=== PATIENT | male | born 1940 | race Caucasian/White ===

== ENCOUNTER 2019-04-15 09:40 | Day surgery (SDC) | payer MEDICARE, OTHER ==
[2019-04-15] MEDS ORDERED: Dextrose 5%-Lactated Ringers 1,000 ML IV SCH (10:30)
[2019-04-15] MEDS ORDERED: ceFAZolin 2 GM in Premix Bag 1 BAG IV ONE (11:00)
[2019-04-15] MEDS ORDERED: Bupivacaine 0.5% 50 ML MDV ONE (11:12)
[2019-04-15] MEDS ORDERED: Lidocaine 1% with EPINEPHrine 1:100,000 50 ML MDV ONE (11:12)
[2019-04-15] MEDS ORDERED: fentaNYL 100 MCG/2 ML SDV ONE (12:14)
[2019-04-15] MEDS ORDERED: Propofol 200 MG/20 ML SDV ONE (12:15)
--- NOTE | 2019-04-15 13:38 | PCM.CONS ---
H&P History of Present Illness - General Date of Service: 04/15/19 Source of Information: Patient, Family, Old Records, Provider, RN Notes Reviewed History Limitations: Reports: No Limitations - History of Present Illness Initial Comments - Free Text/Narative: Mr. Lombardi is a 79-year-old gentleman who I been asked to see by Dr. Claire, for medical clearance prior to planned umbilical hernia repair with IV sedation. Mr. Lombardi has a known history of coronary artery disease and is status post angioplasty with stent placement done 6-8 years ago. He did have an echocardiogram performed about 16 months ago, which showed normal left ventricular function and mild aortic stenosis. He denies recent symptoms of chest pain or pressure, or shortness of breath out of the ordinary. He thinks that he is able to walk 2 blocks without having to stop because of chest pain or shortness of breath. If he did have to stop it would typically because of low back and hip pain. He also reports that he would be able to walk up 2 flights of stairs without having to stop because of shortness of breath or chest pain. He is in no recent fevers chills or sweats. Denies nausea vomiting and abdominal pain. He has had previous surgery with no adverse reaction to IV sedation or general anesthetic. There is no family history of adverse reaction to anesthesia. He denies any history of deep vein thrombosis, pulmonary embolism , or bleeding abnormalities. 3 Pain Score (Numeric/FACES): 3 - Related Data Allergies/Adverse Reactions: Allergies Allergy/AdvReac Type Severity Reaction Status Date / Time No Known Allergies Allergy Verified 02/07/14 20:28 Home Medications: Home Meds Furosemide 40 mg PO DAILY 02/07/14 [History] Gabapentin 300 mg PO TID 02/07/14 [History] Insulin Aspart [NovoLOG] 2 units SUBCUT TID PRN 02/07/14 [History] Potassium Chloride [Klor-Con M20] 20 meq PO DAILY 02/07/14 [History] atorvaSTATin Calcium [Atorvastatin Calcium] 40 mg PO DAILY 02/07/14 [History] metFORMIN [Glucophage] 500 mg PO BID 02/07/14 [History] Acetaminophen [Tylenol Extra Strength] 1,000 mg PO DAILY 05/26/14 [History] Amitriptyline [Elavil] 25 mg PO BEDTIME 05/26/14 [History] Aspirin [Adult Low Dose Aspirin EC] 81 mg PO DAILY 05/26/14 [History] Carvedilol [Coreg] 0.5 tab PO BID 05/26/14 [History] Ergocalciferol (Vitamin D2) [Vitamin D2] 1 cap PO ASDIRECTED 05/26/14 [History] Losartan [Cozaar] 50 mg PO BID 05/26/14 [History] Zinc 1 tab PO DAILY 05/26/14 [History] Ascorbic Acid [Vitamin C] 500 mg PO DAILY 05/28/14 [History] Cholecalciferol (Vitamin D3) [Vitamin D3] 1,000 units PO BID 04/13/19 [History] Cholecalciferol (Vitamin D3) [Vitamin D3] 50,000 units PO Q30D 04/13/19 [History ] Cyanocobalamin (Vitamin B-12) [B-12] 1,000 mcg PO BID 04/13/19 [History] Ibuprofen 200 mg PO Q6H PRN 04/13/19 [History] Insulin Degludec [Tresiba Flextouch U-200] 64 units SUBCUT BEDTIME 04/13/19 [ History] Liraglutide [Victoza] 1.8 mg SUBCUT DAILY 04/13/19 [History] Multivitamin [Multiple Vitamins] 1 tab PO DAILY 04/13/19 [History] Omeprazole 40 mg PO DAILY 04/13/19 [History] Potassium Chloride 20 meq PO DAILY 04/13/19 [History] Tamsulosin [Flomax] 0.4 mg PO DAILY 04/13/19 [History] Past Medical History HEENT History: Reports: Cataract, Impaired Vision Cardiovascular History: Reports: Arrhythmia, Blood Clots/VTE/DVT, High Cholesterol, Hypertension, SOB on Exertion, Stents Respiratory History: Reports: Other (See Below) Other Respiratory History: ANDREWS LUNG Gastrointestinal History: Reports: GERD Genitourinary History: Reports: Urinary Incontinence Musculoskeletal History: Reports: Arthritis, Back Pain, Chronic Neurological History: Reports: Neuropathy, Diabetic, Vertigo Psychiatric History: Reports: Depression Endocrine/Metabolic History: Reports: Diabetes, Type II, IDDM Oncologic (Cancer) History: Reports: Malignant Melanoma Dermatologic History: Reports: Melanoma, Other (See Below) Other Dermatologic History: DRY SKIN - Infectious Disease History Infectious Disease History: Reports: Chicken Pox, Measles, Mumps - Past Surgical History HEENT Surgical History: Reports: Adenoidectomy, Cataract Surgery, Eye Surgery, Tonsillectomy Cardiovascular Surgical History: Reports: Coronary Artery Stent Respiratory Surgical History: Reports: None GI Surgical History: Reports: Cholecystectomy, Colonoscopy Male Surgical History: Reports: TURP-Transurethral Resection of Prostate, Other (See Below) Neurological Surgical History: Reports: Discectomy, Laminectomy Dermatological Surgical History: Reports: Skin Biopsy Social & Family History - Family History Family Medical History: Noncontributory - Tobacco Use Smoking Status *Q: Never Smoker Second Hand Smoke Exposure: No - Caffeine Use Caffeine Use: Reports: Coffee - Recreational Drug Use Recreational Drug Use: No H&P Review of Systems - Review of Systems: Review Of Systems: See Below General: Reports: No Symptoms HEENT: Reports: No Symptoms Pulmonary: Reports: No Symptoms Cardiovascular: Reports: No Symptoms Gastrointestinal: Reports: Other (umbilical hernia). Denies: Abdominal Pain, Black Stool, Bloody Stool, Constipation, Diarrhea, Decreased Appetite, Difficulty Swallowing, Distension, Nausea, Vomiting Genitourinary: Reports: No Symptoms Musculoskeletal: Reports: Neck Pain, Back Pain, Joint Pain Skin: Reports: No Symptoms Psychiatric: Reports: No Symptoms Neurological: Reports: No Symptoms Hematologic/Lymphatic: Reports: No Symptoms Immunologic: Reports: No Symptoms Exam - Exam Exam: See Below - Vital Signs Vital Signs: Last Vital Signs Temp 95.5 F 04/15/19 11:31 Pulse 42 L 04/15/19 11:31 Resp 16 04/15/19 11:31 BP 142/61 H 04/15/19 11:31 Pulse Ox 97 04/15/19 11:31 Weight: 229 lb - Exam General: Alert, Oriented, Cooperative Neck: Supple, Trachea Midline, +2 Carotid Pulse wo Bruit Lungs: Clear to Auscultation, Normal Respiratory Effort Cardiovascular: Regular Rate, Regular Rhythm, Normal S1, Normal S2, Systolic Murmur. No: Bradycardia, Tachycardia GI/Abdominal Exam: Soft, Non-Tender, No Organomegaly, No Distention, Hernia Back Exam: Normal Inspection, Full Range of Motion Extremities: Non-Tender, No Pedal Edema Skin: Warm, Dry, Intact Consult PN Assessment/Plan Procedures: Procedures BONE IMAGING (3D) (01/25/14) CARDIOVASCULAR STRESS TEST (05/28/14) COMPLETE CBC W/AUTO DIFF WBC (02/07/14) CT LUMBAR SPINE W/O DYE (01/29/14) EMERGENCY DEPT VISIT (02/07/14) EXTREMITY STUDY (01/25/14) HT MUSCLE IMAGE SPECT MULT (05/28/14) METABOLIC PANEL TOTAL CA (02/07/14) PT EVALUATION (09/30/14) ROUTINE VENIPUNCTURE (02/07/14) THER/PROPH/DIAG IV INF INIT (02/08/14) THERAPEUTIC EXERCISES (09/30/14) TTE W/DOPPLER COMPLETE (12/11/17) US EXAM ABDO BACK WALL COMP (01/29/14) Problem List Initiated/Reviewed/Updated: Yes Plan: ASSESSMENT AND RECOMMENDATIONS UMBILICAL HERNIA REPAIR-cleared for surgery with IV sedation and local anesthesia. He has adequate exercise tolerance and denies any symptoms of significant shortness of breath or chest pain. HISTORY OF CORONARY ARTERY DISEASE-currently asymptomatic status post angioplasty with stent placement several years ago MILD AORTIC STENOSIS-currently asymptomatic TYPE 2 DIABETES [id number] with current management Requesting Provider: MARSHALL Date Consult Requested: 04/15/19 Reason for Consult: preoperative medical clearance Patient History Reviewed: Yes Admission H&P Reviewed: Yes Notified Requestor: Yes
[2019-04-15] MEDS ORDERED: Acetaminophen/HYDROcodone 325-5 MG Tab PO ONE (15:42)
--- NOTE | 2019-04-16 09:43 | OR ---
DATE OF PROCEDURE: 04/15/2019 POSTOPERATIVE DIAGNOSIS: Umbilical hernia, reducible. POSTOPERATIVE DIAGNOSIS: Umbilical hernia, reducible. PROCEDURE: Repair umbilical hernia with a 6.4 cm in diameter Ventralex mesh patch with straps. SURGEON: Daniel Nixon MD ANESTHESIA: IV anesthesia with monitored anesthesia care. INDICATION: This 79-year-old white male is referred for repair of an umbilical hernia. This is reducible. I counseled him for this with mesh including risks and alternatives, and he gave his informed consent to proceed. DESCRIPTION OF PROCEDURE: After adequate IV anesthesia was obtained, the patient's abdomen was prepped and draped in the usual sterile fashion. Time-out was held. Lidocaine 1% with epinephrine in a 50:50 mix with 0.5% Marcaine was infiltrated about the umbilicus. An infraumbilical semicircular incision was made. The underlying hernia sac was divided from the overlying umbilical skin. This sac was dissected free, excised, and sent to the laboratory. The omentum which was in the sac was reintroduced back into the abdominal cavity. The defect was small enough to use the 6.4 cm in diameter Ventralex mesh patch with straps, which was obtained. The patch was placed underneath the fascia. The straps were pulled up bringing the mesh nicely against the posterior aspect of the anterior abdominal wall. The straps were cut to appropriate length and anchored to the anterior side of the fascia with interrupted horizontal mattress stitches of 2-0 Vicryl. A [id number] stitch of 2-0 Vicryl was used to close the fascia over the mesh. The umbilicus was attached to the underlying fascia with an interrupted stitch of 2-0 Vicryl. Vicryl 4-0 using a subcuticular stitch was placed to approximate the skin. Dermabond was applied. The patient tolerated the procedure well and brought to the recovery room in good condition. Daniel Claire MD /[id number] [email or web address]
== END 2019-04-15 16:40 | disposition home or self-care (01) ==
LOC: JP.SDS 09:40
PROVIDERS: ATTEND Surgery
DX: K42.9 Umbilical hernia without obstruction or gangrene (principal); I12.9 Hypertensive chronic kidney disease with stage 1 through stage 4 chronic kidney disease, or unspecified chronic kidney disease; E11.22 Type 2 diabetes mellitus with diabetic chronic kidney disease; N18.2 Chronic kidney disease, stage 2 (mild); I25.10 Atherosclerotic heart disease of native coronary artery without angina pectoris; I35.0 Nonrheumatic aortic (valve) stenosis; E11.51 Type 2 diabetes mellitus with diabetic peripheral angiopathy without gangrene; E78.00 Pure hypercholesterolemia, unspecified; K21.9 Gastro-esophageal reflux disease without esophagitis; F32.9 Major depressive disorder, single episode, unspecified; R32 Unspecified urinary incontinence; Z90.79 Acquired absence of other genital organ(s); Z79.4 Long term (current) use of insulin; Z79.82 Long term (current) use of aspirin; Z79.899 Other long term (current) drug therapy
CPT/HCPCS: 49585; 82962; 88302; A9270; C1781; J0690; J2704; J3010; J3490; J7042

== ENCOUNTER 2020-02-04 23:02 | Emergency (ER) | payer MEDICARE, OTHER ==
[2020-02-04] MEDS ORDERED: Heparin Sodium 5,000 Units/ML Vial IVPUSH ONE (23:51)
--- NOTE | 2020-02-04 23:54 | EDM.PDOC ---
ED HPI GENERAL MEDICAL PROBLEM - General Chief Complaint: Chest Pain Stated Complaint: [facility] Time Seen by Provider: 02/04/20 23:54 Source of Information: Reports: Patient History Limitations: Reports: Intoxication - History of Present Illness INITIAL COMMENTS - FREE TEXT/NARRATIVE: pt arrived with a history of chest pain starting about 5 thirty. He had been at [facility] and Dr Loya had done surgery on his wrist. He had a regional block and some sedation for the procedure. He has a history of stents. On the way home he developed the chest pain and this did continue through the pm. Onset: Today, Sudden Duration: Hour(s): Location: Reports: Chest, Other (pt was given 3 sprays of nitro in the ambulance and asa and he is doing much better. His pain has resolved. He states when he had the pain he was very sweaty. ) Associated Symptoms: Reports: Diaphoresis, Shortness of Breath, Weakness Treatments COLLECTIONS REPRESENTATIVE: Reports: See EMS Report - Related Data Allergies Allergy/AdvReac Type Severity Reaction Status Date / Time No Known Allergies Allergy Verified 02/04/20 23:31 Home Meds: Home Meds Gabapentin 600 mg PO TID 02/07/14 [History] Insulin Aspart [NovoLOG] 3 units SUBCUT TID PRN 02/07/14 [History] Potassium Chloride [Klor-Con M20] 20 meq PO DAILY 02/07/14 [History] atorvaSTATin Calcium [Atorvastatin Calcium] 40 mg PO DAILY 02/07/14 [History] metFORMIN [Glucophage] 500 mg PO BID 02/07/14 [History] Aspirin [Adult Low Dose Aspirin EC] 81 mg PO DAILY 05/26/14 [History] Ergocalciferol (Vitamin D2) [Vitamin D2] 1 cap PO ASDIRECTED 05/26/14 [History] Losartan [Cozaar] 50 mg PO BID 05/26/14 [History] Cholecalciferol (Vitamin D3) [Vitamin D3] 1,000 units PO BID 04/13/19 [History] Cyanocobalamin (Vitamin B-12) [B-12] 1,000 mcg PO BID 04/13/19 [History] Ibuprofen 200 mg PO Q6H PRN 04/13/19 [History] Insulin Degludec [Tresiba Flextouch U-200] 64 units SUBCUT BEDTIME 04/13/19 [ History] Liraglutide [Victoza] 1.8 mg SUBCUT DAILY 04/13/19 [History] Multivitamin [Multiple Vitamins] 1 tab PO DAILY 04/13/19 [History] Omeprazole 40 mg PO DAILY 04/13/19 [History] Tamsulosin [Flomax] 0.4 mg PO DAILY 04/13/19 [History] Citalopram Hydrobromide [Celexa] 40 mg PO DAILY 07/25/19 [History] Furosemide 80 mg PO DAILY PRN 07/25/19 [History] Diclofenac Sodium [Voltaren] 2 g TOP QID 10/30/19 [History] Past Medical History HEENT History: Reports: Cataract, Impaired Vision Cardiovascular History: Reports: Arrhythmia, Blood Clots/VTE/DVT, Heart Murmur, High Cholesterol, Hypertension, SOB on Exertion, Stents Respiratory History: Reports: Other (See Below) Other Respiratory History: ANDREWS LUNG Gastrointestinal History: Reports: GERD Genitourinary History: Reports: Urinary Incontinence Musculoskeletal History: Reports: Arthritis, Back Pain, Chronic Neurological History: Reports: Neuropathy, Diabetic, Vertigo Psychiatric History: Reports: Depression Endocrine/Metabolic History: Reports: Diabetes, Type II, IDDM Oncologic (Cancer) History: Reports: Malignant Melanoma, Prostate Dermatologic History: Reports: Melanoma, Other (See Below) Other Dermatologic History: DRY SKIN - Infectious Disease History Infectious Disease History: Reports: Chicken Pox, Measles, Mumps - Past Surgical History HEENT Surgical History: Reports: Adenoidectomy, Cataract Surgery, Eye Surgery, Tonsillectomy Cardiovascular Surgical History: Reports: Coronary Artery Stent GI Surgical History: Reports: Cholecystectomy, Colonoscopy, Hernia, Abdominal Male Surgical History: Reports: TURP-Transurethral Resection of Prostate, Other (See Below) Other Male Surgeries/Procedures: bladder repair Neurological Surgical History: Reports: Discectomy, Laminectomy Musculoskeletal Surgical History: Reports: Arthroscopic Knee, Other (See Below) Other Musculoskeletal Surgeries/Procedures:: partial knee replacements, neck surg twice, back surg 3 times Dermatological Surgical History: Reports: Skin Biopsy Social & Family History - Family History Family Medical History: Noncontributory - Tobacco Use Smoking Status *Q: Never Smoker - Caffeine Use Caffeine Use: Reports: Coffee Caffeine Use Comment: several cups to a pot a day - Recreational Drug Use Recreational Drug Use: No ED ROS GENERAL - Review of Systems Review Of Systems: See Below Constitutional: Reports: Diaphoresis HEENT: Reports: No Symptoms Respiratory: Reports: Shortness of Breath Cardiovascular: Reports: Chest Pain Endocrine: Reports: No Symptoms GI/Abdominal: Reports: No Symptoms : Reports: No Symptoms Musculoskeletal: Reports: No Symptoms Skin: Reports: No Symptoms ED EXAM, GENERAL - Physical Exam Exam: See Below Free Text/Narrative:: pt arrived after having chest pain since about 5 thirty this pm. He was brought by ambulance and he was given asa and nitro in the ambulance. The 3 sprays of nitro did give relief of the chest pain. He still is somewhat sweaty at this time. His o2 sats are in the low 90s. Exam Limited By: No Limitations General Appearance: Alert, Anxious, Mild Distress Ears: Normal TMs Nose: Normal Inspection Throat/Mouth: Normal Inspection Head: Atraumatic Neck: Normal Inspection Respiratory/Chest: No Respiratory Distress, Other (o2 sats are on the lower side. ) Cardiovascular: Regular Rate, Rhythm, Other (pt is having frquent pvcs. ) GI/Abdominal: Soft, Non-Tender (Male) Exam: Deferred Rectal (Males) Exam: Deferred Back Exam: Normal Inspection Extremities: Other (pt has a dressing on the rt arm. ) Neurological: Alert, Oriented, Normal Cognition Course - Vital Signs Last Recorded V/S: Last Vital Signs Temp Pulse 89 02/04/20 23:31 Resp 18 02/04/20 23:31 BP 142/73 H 02/04/20 23:31 Pulse Ox 92 L 02/04/20 23:31 - Orders/Labs/Meds Labs: Laboratory Tests 02/04/20 02/04/20 02/04/20 Range/Units 23:05 23:05 23:05 WBC (4.5-11.0) K/uL RBC (4.30-5.90) M/uL Hgb (12.0-15.0) g/dL Hct (40.0-54.0) % MCV (80-98) fL MCH (27-31) pg MCHC (32-36) % Plt Count (150-400) K/uL Neut % (Auto) (36-66) % Lymph % (Auto) (24-44) % [place] % (Auto) (2-6) % Eos % (Auto) (2-4) % Baso % (Auto) (0-1) % APTT (27.0-36.0) sec D-Dimer, Quantitative 354 (0.0-400.0) ng/mL Sodium 136 L (140-148) mmol/L Potassium 5.3 H (3.6-5.2) mmol/L Chloride 102 (100-108) mmol/L Carbon Dioxide 26 (21-32) mmol/L Anion Gap 13.3 (5.0-14.0) mmol/L BUN 33 H (7-18) mg/dL Creatinine 1.7 H (0.8-1.3) mg/dL Est Cr Clr Drug Dosing TNP Estimated GFR (MDRD) 39 L (>60) Glucose 441 H* (74-106) mg/dL Calcium 8.2 L (8.5-10.1) mg/dL Total Bilirubin 0.4 (0.2-1.0) mg/dL AST 19 (15-37) U/L ALT 22 (12-78) U/L Alkaline Phosphatase 81 (46-116) U/L Troponin I 1.037 H* (0.000-0.056) ng/mL Total Protein 6.4 (6.4-8.2) g/dL Albumin 3.0 L (3.4-5.0) g/dL Globulin 3.4 (2.3-3.5) g/dL Albumin/Globulin Ratio 0.9 L (1.2-2.2) 02/04/20 02/04/20 Range/Units 23:08 23:10 WBC 12.5 H (4.5-11.0) K/uL RBC 4.17 L (4.30-5.90) M/uL Hgb 12.3 (12.0-15.0) g/dL Hct 37.9 L (40.0-54.0) % MCV 91 (80-98) fL MCH 30 (27-31) pg MCHC 33 (32-36) % Plt Count 190 (150-400) K/uL Neut % (Auto) 93 H (36-66) % Lymph % (Auto) 5 L (24-44) % [place] % (Auto) 2 (2-6) % Eos % (Auto) 0 L (2-4) % Baso % (Auto) 0 (0-1) % APTT 25.6 L (27.0-36.0) sec D-Dimer, Quantitative (0.0-400.0) ng/mL Sodium (140-148) mmol/L Potassium (3.6-5.2) mmol/L Chloride (100-108) mmol/L Carbon Dioxide (21-32) mmol/L Anion Gap (5.0-14.0) mmol/L BUN (7-18) mg/dL Creatinine (0.8-1.3) mg/dL Est Cr Clr Drug Dosing Estimated GFR (MDRD) (>60) Glucose (74-106) mg/dL Calcium (8.5-10.1) mg/dL Total Bilirubin (0.2-1.0) mg/dL AST (15-37) U/L ALT (12-78) U/L Alkaline Phosphatase (46-116) U/L Troponin I (0.000-0.056) ng/mL Total Protein (6.4-8.2) g/dL Albumin (3.4-5.0) g/dL Globulin (2.3-3.5) g/dL Albumin/Globulin Ratio (1.2-2.2) Meds: Medications Discontinued Medications Generic Name Dose Route Start Last Admin Trade Name Freq PRN Reason Stop Dose Admin Heparin Sodium (Porcine) 4,000 units 02/04/20 23:51 02/04/20 23:58 Heparin Sodium IVPUSH 02/04/20 23:52 4,000 units ONETIME ONE Administration Insulin Human Regular 5 unit 02/05/20 00:11 02/05/20 00:17 Humulin R SUBCUT 02/05/20 00:12 5 units ONETIME ONE Administration - Re-Assessments/Exams Free Text/Narrative Re-Assessment/Exam: 02/05/20 00:02 pt arrived with very little discomfort. He had lower o2 sats. He had no acute ekg changes. He has frequent pvcs. His trop is elevated to 1.037. Departure - Departure Time of Disposition: 23:47 Disposition: DC/Tfer to Acute Hospital 02 Reason for Transfer *Q: Primary PCI Indicated Condition: Fair Clinical Impression: Non Q wave myocardial infarction, Frequent PVCs Referrals: Anthony Coon MD [Primary Care Provider] - Forms: ED Department Discharge Care Plan Goals: transfer to [facility]. Sepsis Event Note - Evaluation Sepsis Screening Result: No Definite Risk - Focused Exam Date Exam was Performed: 02/08/20 Time Exam was Performed: 07:12
[2020-02-05] MEDS ORDERED: Insulin Regular, Human 100 Units/ML 3 ML Vial SUBCUT ONE (00:11)
--- NOTE | 2020-02-05 00:28 | CRLCR ---
INDICATION: Shortness of breath TECHNIQUE: Chest radiograph 1 view COMPARISON: 09/21/10 FINDINGS: Mediastinum: The mediastinum is normal in appearance. The heart silhouette is normal in size and morphology. Lung: Both lungs are unremarkable in appearance. No sign of pleural effusion seen. No pneumothorax is identified. Bone and Soft tissue: Unremarkable for age. IMPRESSION: 1. No acute cardiopulmonary disease is seen. Dictated by: Dandre Rodriguez MD @ 02/05/2020 00:27:34 (Electronically Signed)
== END 2020-02-05 00:22 ==
LOC: JP.ED 23:02
DX: I21.4 Non-ST elevation (NSTEMI) myocardial infarction (principal); I49.3 Ventricular premature depolarization; I10 Essential (primary) hypertension; E11.40 Type 2 diabetes mellitus with diabetic neuropathy, unspecified; E78.00 Pure hypercholesterolemia, unspecified; Z86.718 Personal history of other venous thrombosis and embolism; K21.9 Gastro-esophageal reflux disease without esophagitis; M19.90 Unspecified osteoarthritis, unspecified site; F32.9 Major depressive disorder, single episode, unspecified; Z79.4 Long term (current) use of insulin; Z79.82 Long term (current) use of aspirin; Z79.899 Other long term (current) drug therapy
CPT/HCPCS: 36415; 71045; 80053; 84484; 85025; 85379; 85730; 93005; 96374; 99285; J1644; J1815

== ENCOUNTER 2020-03-31 07:33 | Day surgery (SDC) | payer MEDICARE, OTHER ==
[~2020-03-31 07:33] MED LIST: Propofol 200 MG/20 ML SDV ONE; fentaNYL 100 MCG/2 ML SDV ONE
[2020-03-31] MEDS ORDERED: Dextrose 5%-Lactated Ringers 1,000 ML IV SCH (08:00)
--- NOTE | 2020-04-10 09:04 | OR ---
DATE OF PROCEDURE: 03/31/2020 SURGEON: Farooq Kothari MD PREOPERATIVE DIAGNOSES: History of epigastric discomfort and melena. POSTOPERATIVE DIAGNOSIS: Minimal gastritis in gastric antrum with no current erosions, ulcers, or other likely bleeding sources identified. OPERATIVE PROCEDURE: Esophagogastroduodenoscopy with antral biopsies for CLOtest. ANESTHESIA: IV sedation. INDICATIONS FOR PROCEDURE: This is a 80-year-old male presenting with some epigastric discomfort as well as history of some black stools. Plan is to proceed with upper GI endoscopy with biopsies as indicated. Potential risks including bleeding and perforation were discussed, and the patient wishes to proceed. DETAILS OF PROCEDURE: The patient was taken to the operative room and placed in a left lateral decubitus position. IV sedation was administered, after which the upper GI endoscope was passed orally through the length of the esophagus into the stomach with retroflexion view of the fundus, thereafter through the pyloric channel into the proximal duodenum. FINDINGS: Included normal hypopharynx, larynx, upper esophageal sphincter, and esophageal body. At the EG junction, there was a small hiatal hernia, but no significant inflammation or stricturing or other signs of pathology at that level. In the stomach, there was some patchy redness in the gastric antrum. There were no erosions or ulcers present there. As we passed through the pyloric channel to the level of 3rd and 4th portions of the duodenum, likewise there were no ulcers or erosions or other likely bleeding sites. At that point, biopsies were obtained from the antrum and sent for CLOtest for H. pylori. Minimal bleeding from the biopsy sites was seen, and procedure then concluded. At this point, we will have the patient continue with present medical management of proton pump inhibitors. By history, the patient had been taking some ibuprofen previously. He will be instructed to avoid ibuprofen, but use Tylenol as needed for other pains. Follow up with Dr. Coon at [facility] on 04/21/2020. Farooq Kothari MD /[id number]
== END 2020-03-31 10:43 | disposition home or self-care (01) ==
LOC: JP.SDS 07:33
PROVIDERS: ATTEND Surgery
DX: K29.70 Gastritis, unspecified, without bleeding (principal); E11.9 Type 2 diabetes mellitus without complications
CPT/HCPCS: 43239; 87081; J2704; J3010; J7121

== ENCOUNTER 2020-08-19 11:19 | Emergency (ER) | payer MEDICARE, OTHER ==
[2020-08-19] MEDS ORDERED: Aspirin 81 MG Tab.Chew PO ONE (11:46)
--- NOTE | 2020-08-19 13:17 | EDM.PDOC ---
ED HPI GENERAL MEDICAL PROBLEM - General Chief Complaint: Chest Pain Stated Complaint: CHEST PAINS AFTER REHAB Time Seen by Provider: 08/19/20 11:45 Source of Information: Reports: Patient, Family History Limitations: Reports: No Limitations - History of Present Illness INITIAL COMMENTS - FREE TEXT/NARRATIVE: pt arrived with a history of chest pain while in cardiac rehab this am. For this reason he was refered to ER. Onset: Today, Sudden Duration: Hour(s): Location: Reports: Chest Associated Symptoms: Reports: Chest Pain, Shortness of Breath, Other ( Particularly when he was having the pain. ) - Related Data Allergies Allergy/AdvReac Type Severity Reaction Status Date / Time No Known Allergies Allergy Verified 03/31/20 08:02 Home Meds: Home Meds Gabapentin 300 - 600 mg PO TID 02/07/14 [History] Insulin Aspart [NovoLOG] 6 units SUBCUT TID PRN 02/07/14 [History] Potassium Chloride [Klor-Con M20] 20 meq PO DAILY 02/07/14 [History] atorvaSTATin Calcium [Atorvastatin Calcium] 40 mg PO DAILY 02/07/14 [History] metFORMIN [Glucophage] 500 mg PO BID 02/07/14 [History] Aspirin [Adult Low Dose Aspirin EC] 81 mg PO DAILY 05/26/14 [History] Ergocalciferol (Vitamin D2) [Vitamin D2] 1 cap PO ASDIRECTED 05/26/14 [History] Losartan [Cozaar] 50 mg PO BID 05/26/14 [History] Cholecalciferol (Vitamin D3) [Vitamin D3] 1,000 units PO BID 04/13/19 [History] Cyanocobalamin (Vitamin B-12) [B-12] 1,000 mcg PO BID 04/13/19 [History] Ibuprofen 200 mg PO Q6H PRN 04/13/19 [History] Insulin Degludec [Tresiba Flextouch U-200] 50 units SUBCUT BEDTIME 04/13/19 [History] Liraglutide [Victoza] 1.8 mg SUBCUT DAILY 04/13/19 [History] Multivitamin [Multiple Vitamins] 1 tab PO DAILY 04/13/19 [History] Omeprazole 40 mg PO DAILY 04/13/19 [History] Tamsulosin [Flomax] 0.4 mg PO DAILY 04/13/19 [History] Citalopram Hydrobromide [Celexa] 40 mg PO DAILY 07/25/19 [History] Furosemide 80 mg PO DAILY PRN 07/25/19 [History] Diclofenac Sodium [Voltaren] 2 g TOP QID 10/30/19 [History] Nitroglycerin [Nitrostat] 0.4 mg SL ASDIRECTED PRN 03/28/20 [History] Past Medical History HEENT History: Reports: Cataract, Impaired Vision Cardiovascular History: Reports: Arrhythmia, Blood Clots/VTE/DVT, Heart Murmur, High Cholesterol, Hypertension, MD, SOB on Exertion, Stents Respiratory History: Reports: Other (See Below) Other Respiratory History: ANDREWS LUNG Gastrointestinal History: Reports: GERD Genitourinary History: Reports: Urinary Incontinence Musculoskeletal History: Reports: Arthritis, Back Pain, Chronic Neurological History: Reports: Neuropathy, Diabetic, Vertigo Psychiatric History: Reports: Depression Endocrine/Metabolic History: Reports: Diabetes, Type II, IDDM Oncologic (Cancer) History: Reports: Malignant Melanoma, Prostate Dermatologic History: Reports: Melanoma, Other (See Below) Other Dermatologic History: DRY SKIN - Infectious Disease History Infectious Disease History: Reports: Chicken Pox, Measles, Mumps - Past Surgical History HEENT Surgical History: Reports: Adenoidectomy, Cataract Surgery, Eye Surgery, Tonsillectomy GI Surgical History: Reports: Cholecystectomy, Colonoscopy, EGD, Hernia, Abdominal Male Surgical History: Reports: TURP-Transurethral Resection of Prostate, Other (See Below) Other Male Surgeries/Procedures: bladder repair Neurological Surgical History: Reports: Discectomy, Laminectomy Musculoskeletal Surgical History: Reports: Arthroscopic Knee, Other (See Below) Other Musculoskeletal Surgeries/Procedures:: partial knee replacements, neck surg twice, back surg 3 times Dermatological Surgical History: Reports: Skin Biopsy Social & Family History - Family History Family Medical History: Noncontributory - Tobacco Use Smoking Status *Q: Never Smoker - Caffeine Use Caffeine Use: Reports: Coffee Caffeine Use Comment: several cups to a pot a day - Recreational Drug Use Recreational Drug Use: No ED ROS GENERAL - Review of Systems Review Of Systems: See Below Constitutional: Reports: No Symptoms HEENT: Reports: No Symptoms Respiratory: Reports: Shortness of Breath Cardiovascular: Reports: Chest Pain Endocrine: Reports: No Symptoms GI/Abdominal: Reports: No Symptoms : Reports: No Symptoms Musculoskeletal: Reports: No Symptoms Skin: Reports: No Symptoms Neurological: Reports: No Symptoms Psychiatric: Reports: Anxiety ED EXAM, GENERAL - Physical Exam Exam: See Below Free Text/Narrative:: pt arrived with a history of 5 min of chest pain while in cardiac rehab. He is pain free at this time. Exam Limited By: No Limitations General Appearance: Alert, No Apparent Distress, Anxious, Other (pupils are equal and reactive. 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 r) GI/Abdominal: Soft, Non-Tender (Male) Exam: Deferred Rectal (Males) Exam: Deferred Back Exam: Normal Inspection Extremities: Other (no edema present. ) Neurological: Alert, Oriented, Normal Cognition Psychiatric: Normal Affect Course - Vital Signs Last Recorded V/S: Last Vital Signs Temp 36.8 C 08/19/20 11:41 Pulse 70 08/19/20 11:59 Resp 14 08/19/20 11:59 BP 136/66 08/19/20 11:59 Pulse Ox 90 L 08/19/20 11:59 - Orders/Labs/Meds Orders: Active Orders 24 hr Category Date Time Status EKG Documentation Completion [RC] ASDIRECTED Care 08/19/20 11:46 Active Chest 1V Frontal [CR] Stat Exams 08/19/20 12:44 Taken EKG 12 Lead [EK] Routine Ther 08/19/20 11:46 Ordered Labs: Laboratory Tests 08/19/20 08/19/20 08/19/20 Range/Units 11:59 11:59 11:59 WBC 10.8 (4.5-11.0) K/uL RBC 4.09 L (4.30-5.90) M/uL Hgb 12.0 (12.0-15.0) g/dL Hct 36.3 L (40.0-54.0) % MCV 89 (80-98) fL MCH 29 (27-31) pg MCHC 33 (32-36) % Plt Count 218 (150-400) K/uL Neut % (Auto) 82 H (36-66) % Lymph % (Auto) 10 L (24-44) % [place] % (Auto) 7 H (2-6) % Eos % (Auto) 0 L (2-4) % Baso % (Auto) 0 (0-1) % Sodium 135 L (140-148) mmol/L Potassium 4.3 (3.6-5.2) mmol/L Chloride 98 L (100-108) mmol/L Carbon Dioxide 27 (21-32) mmol/L Anion Gap 14.3 H (5.0-14.0) mmol/L BUN 37 H (7-18) mg/dL Creatinine 1.6 H (0.8-1.3) mg/dL Est Cr Clr Drug Dosing 34.34 mL/min Estimated GFR (MDRD) 42 L (>60) Glucose 295 H (74-106) mg/dL Calcium 8.7 (8.5-10.1) mg/dL Total Bilirubin 0.3 (0.2-1.0) mg/dL AST 11 L (15-37) U/L ALT 18 (12-78) U/L Alkaline Phosphatase 79 (46-116) U/L Troponin I < 0.017 (0.000-0.056) ng/mL Total Protein 6.6 (6.4-8.2) g/dL Albumin 3.2 L (3.4-5.0) g/dL Globulin 3.4 (2.3-3.5) g/dL Albumin/Globulin Ratio 0.9 L (1.2-2.2) Urine Color (YELLOW) Urine Appearance (CLEAR) Urine pH (5.0-8.0) Ur Specific [place] (1.008-1.030) Urine Protein (NEGATIVE) mg/dL Urine Glucose (UA) (NEGATIVE) mg/dL Urine Ketones (NEGATIVE) mg/dL Urine Occult Blood (NEGATIVE) Urine Nitrite (NEGATIVE) Urine Bilirubin (NEGATIVE) Urine Urobilinogen (0.2-1.0) EU/dL Ur Leukocyte Esterase (NEGATIVE) Urine RBC (0-5) Urine WBC (0-5) Ur Epithelial Cells Amorphous Sediment Urine Bacteria Urine Mucus 08/19/20 Range/Units 12:22 WBC (4.5-11.0) K/uL RBC (4.30-5.90) M/uL Hgb (12.0-15.0) g/dL Hct (40.0-54.0) % MCV (80-98) fL MCH (27-31) pg MCHC (32-36) % Plt Count (150-400) K/uL Neut % (Auto) (36-66) % Lymph % (Auto) (24-44) % [place] % (Auto) (2-6) % Eos % (Auto) (2-4) % Baso % (Auto) (0-1) % Sodium (140-148) mmol/L Potassium (3.6-5.2) mmol/L Chloride (100-108) mmol/L Carbon Dioxide (21-32) mmol/L Anion Gap (5.0-14.0) mmol/L BUN (7-18) mg/dL Creatinine (0.8-1.3) mg/dL Est Cr Clr Drug Dosing mL/min Estimated GFR (MDRD) (>60) Glucose (74-106) mg/dL Calcium (8.5-10.1) mg/dL Total Bilirubin (0.2-1.0) mg/dL AST (15-37) U/L ALT (12-78) U/L Alkaline Phosphatase (46-116) U/L Troponin I (0.000-0.056) ng/mL Total Protein (6.4-8.2) g/dL Albumin (3.4-5.0) g/dL Globulin (2.3-3.5) g/dL Albumin/Globulin Ratio (1.2-2.2) Urine Color Yellow (YELLOW) Urine Appearance Clear (CLEAR) Urine pH 5.5 (5.0-8.0) Ur Specific [place] 1.015 (1.008-1.030) Urine Protein Negative (NEGATIVE) mg/dL Urine Glucose (UA) Negative (NEGATIVE) mg/dL Urine Ketones Negative (NEGATIVE) mg/dL Urine Occult Blood Negative (NEGATIVE) Urine Nitrite Negative (NEGATIVE) Urine Bilirubin Negative (NEGATIVE) Urine Urobilinogen 0.2 (0.2-1.0) EU/dL Ur Leukocyte Esterase Trace H (NEGATIVE) Urine RBC 0-5 (0-5) Urine WBC 0-5 (0-5) Ur Epithelial Cells Not seen Amorphous Sediment Not seen Urine Bacteria Rare Urine Mucus Not seen Meds: Medications Discontinued Medications Generic Name Dose Route Start Last Admin Trade Name Freq PRN Reason Stop Dose Admin Aspirin 324 mg 08/19/20 11:46 08/19/20 11:56 Aspirin PO 08/19/20 11:47 324 mg ONETIME ONE Administration - Re-Assessments/Exams Free Text/Narrative Re-Assessment/Exam: 08/19/20 13:17 pt had a normal trop. He had no acute changes on the ekg. He had a creatnine of 1.6. He does have some chronic kidney issues. Departure - Departure Time of Disposition: 13:18 Disposition: Home, Self-Care 01 Condition: Fair Clinical Impression: Angina of effort, Chronic renal insufficiency, Elevated glucose Referrals: Anthony Coon MD [Primary Care Provider] - Care Plan Goals: appt with Dr Coon in 4-5 days, rtc for lexiscan. rtc if he should have further chest pain. Sepsis Event Note (ED) - Focused Exam Vital Signs: Vital Signs Temp Pulse Resp BP Pulse Ox 08/19/20 11:59 70 14 136/66 90 L 08/19/20 11:41 36.8 C 75 12 142/72 H 95 - My Orders Last 24 Hours: My Active Orders 08/19/20 11:46 EKG Documentation Completion [RC] ASDIRECTED EKG 12 Lead [EK] Routine 08/19/20 12:44 Chest 1V Frontal [CR] Stat - Assessment/Plan Last 24 Hours: My Active Orders 08/19/20 11:46 EKG Documentation Completion [RC] ASDIRECTED EKG 12 Lead [EK] Routine 08/19/20 12:44 Chest 1V Frontal [CR] Stat
--- NOTE | 2020-08-19 13:44 | CR ---
CHEST: Portable 08/19/2020 at 1:05 PM CLINICAL HISTORY:Chest pain COMPARISON:02/05/2020 FINDINGS: The heart size, pulmonary vascularity and hilar structures are normal. No infiltrate effusion or pneumothorax is seen. IMPRESSION: No acute cardiopulmonary process.
== END 2020-08-19 13:40 | disposition home or self-care (01) ==
LOC: JP.ED 11:19
DX: I20.8 Other forms of angina pectoris (principal); I12.9 Hypertensive chronic kidney disease with stage 1 through stage 4 chronic kidney disease, or unspecified chronic kidney disease; E11.22 Type 2 diabetes mellitus with diabetic chronic kidney disease; N18.9 Chronic kidney disease, unspecified; I25.2 Old myocardial infarction; K21.9 Gastro-esophageal reflux disease without esophagitis; F32.9 Major depressive disorder, single episode, unspecified; E11.40 Type 2 diabetes mellitus with diabetic neuropathy, unspecified; E78.00 Pure hypercholesterolemia, unspecified; Z79.82 Long term (current) use of aspirin; Z79.4 Long term (current) use of insulin; Z79.899 Other long term (current) drug therapy; Z90.49 Acquired absence of other specified parts of digestive tract
CPT/HCPCS: 36415; 71045; 80053; 81001; 84484; 85025; 93005; 99285; A9270

== ENCOUNTER 2021-03-14 16:20 | Emergency (ER) | payer MEDICARE, OTHER ==
--- NOTE | 2021-03-14 17:24 | EDM.PDOC ---
ED HPI GENERAL MEDICAL PROBLEM - General Chief Complaint: Wound Recheck Stated Complaint: INCISION ON BACK LEAKING FLUID Time Seen by Provider: 03/14/21 17:10 Source of Information: Reports: Patient, Family History Limitations: Reports: No Limitations - History of Present Illness INITIAL COMMENTS - FREE TEXT/NARRATIVE: 81-year-old male had lumbar back surgery 1 week ago, has a long surgical incision along his lower back and started having some serous drainage this morning. He was seen in the clinic this afternoon, assessed and was felt to be doing okay but after a call to the neurosurgery department they recommended he come to the emergency room for further assessment. He is not having increased pain, fever, the drainage is not malodorous and is relatively clear. Onset: Unknown/Unsure (Noticed the drainage started this morning) Associated Symptoms: Reports: No Other Symptoms Neck Pain Score (Numeric/FACES): 3 - Related Data Allergies Allergy/AdvReac Type Severity Reaction Status Date / Time No Known Allergies Allergy Verified 03/14/21 16:47 Home Meds: Home Meds Gabapentin 300 - 600 mg PO TID 02/07/14 [History] Insulin Aspart [NovoLOG] 6 units SUBCUT TID PRN 02/07/14 [History] atorvaSTATin Calcium [Atorvastatin Calcium] 40 mg PO DAILY 02/07/14 [History] metFORMIN [Glucophage] 500 mg PO BID 02/07/14 [History] Aspirin [Adult Low Dose Aspirin EC] 81 mg PO DAILY 05/26/14 [History] Ergocalciferol (Vitamin D2) [Vitamin D2] 1 cap PO ASDIRECTED 05/26/14 [History] Losartan [Cozaar] 50 mg PO BID 05/26/14 [History] Cholecalciferol (Vitamin D3) [Vitamin D3] 1,000 units PO BID 04/13/19 [History] Cyanocobalamin (Vitamin B-12) [B-12] 1,000 mcg PO BID 04/13/19 [History] Insulin Degludec [Tresiba Flextouch U-200] 50 units SUBCUT BEDTIME 04/13/19 [History] Liraglutide [Victoza] 1.2 mg SUBCUT DAILY 04/13/19 [History] Multivitamin [Multiple Vitamins] 1 tab PO DAILY 04/13/19 [History] Omeprazole 40 mg PO DAILY 04/13/19 [History] Tamsulosin [Flomax] 0.4 mg PO DAILY 04/13/19 [History] Citalopram Hydrobromide [Celexa] 40 mg PO DAILY 07/25/19 [History] Furosemide 80 mg PO DAILY 07/25/19 [History] Diclofenac Sodium [Voltaren] 2 g TOP QID 10/30/19 [History] Nitroglycerin [Nitrostat] 0.4 mg SL ASDIRECTED PRN 03/28/20 [History] Acetaminophen [Tylenol Extra Strength] 500 mg PO Q4HR PRN 08/25/20 [History] Ammonium Lactate [Amlactin 12% Lotion] 1 applic TOP DAILY 08/25/20 [History] Chlorzoxazone 500 mg PO BID 08/25/20 [History] Triamcinolone Acetonide [Kenalog 0.1% Crm] 1 applic TOP ASDIRECTED PRN 08/25/20 [History] Past Medical History HEENT History: Reports: Cataract, Impaired Vision Cardiovascular History: Reports: Arrhythmia, Blood Clots/VTE/DVT, Heart Murmur, High Cholesterol, Hypertension, PR, SOB on Exertion, Stents Respiratory History: Reports: Other (See Below) Other Respiratory History: ANDREWS LUNG Gastrointestinal History: Reports: GERD Genitourinary History: Reports: Urinary Incontinence Musculoskeletal History: Reports: Arthritis, Back Pain, Chronic Neurological History: Reports: Neuropathy, Diabetic, Vertigo Psychiatric History: Reports: Depression Endocrine/Metabolic History: Reports: Diabetes, Type II, IDDM Oncologic (Cancer) History: Reports: Malignant Melanoma, Prostate Dermatologic History: Reports: Melanoma, Other (See Below) Other Dermatologic History: DRY SKIN - Infectious Disease History Infectious Disease History: Reports: Chicken Pox, Measles, Mumps - Past Surgical History HEENT Surgical History: Reports: Adenoidectomy, Cataract Surgery, Eye Surgery, Tonsillectomy Cardiovascular Surgical History: Reports: Coronary Artery Stent Respiratory Surgical History: Reports: None GI Surgical History: Reports: Cholecystectomy, Colonoscopy, EGD, Hernia, Abdominal Male Surgical History: Reports: TURP-Transurethral Resection of Prostate, Other (See Below) Other Male Surgeries/Procedures: bladder repair Neurological Surgical History: Reports: Discectomy, Laminectomy, Lumbar Spine Musculoskeletal Surgical History: Reports: Arthroscopic Knee, Other (See Below) Other Musculoskeletal Surgeries/Procedures:: partial knee replacements, neck surg twice, back surg 3 times Dermatological Surgical History: Reports: Skin Biopsy Social & Family History - Family History Family Medical History: No Pertinent Family History - Tobacco Use Tobacco Use Status *Q: Never Tobacco User - Caffeine Use Caffeine Use: Reports: Coffee Caffeine Use Comment: several cups to a pot a day - Recreational Drug Use Recreational Drug Use: No ED ROS GENERAL - Review of Systems Review Of Systems: See Below Constitutional: Denies: Fever, Chills Respiratory: Denies: Shortness of Breath Cardiovascular: Denies: Chest Pain GI/Abdominal: Denies: Nausea, Vomiting Skin: Denies: Erythema Neurological: Denies: Paresthesia ED EXAM, SKIN/RASH Exam: See Below Exam Limited By: No Limitations General Appearance: Alert, No Apparent Distress Head: Atraumatic Respiratory/Chest: No Respiratory Distress, Lungs Clear Back Exam: Other (Patient has a longitudinal incision on the mid back to the sacrum, stapled, with no significant inflammatory reaction or warmth. There is some serous drainage which is slow but persistent coming out of the lower aspect of the incision. There is no significant fluctuance or swelling.) Course - Vital Signs Last Recorded V/S: Last Vital Signs Temp 97.9 F 03/14/21 16:53 Pulse 116 H 03/14/21 16:53 Resp 20 03/14/21 16:53 BP 120/78 03/14/21 16:53 Pulse Ox 97 03/14/21 16:53 - Re-Assessments/Exams Free Text/Narrative Re-Assessment/Exam: 03/14/21 17:30 Called the neurosurgical department and Dr. Lou who did his surgery was contacted. No intervention needs to be done tonight, however he is scheduled to have his milagros removed here in [place] tomorrow morning, instead he would like him to come to [place] to his office for a personal inspection. Patient and his are comfortable with that and will head to [place] to be seen sometime between 9 and noon tomorrow morning. Departure - Departure Time of Disposition: 17:30 Disposition: Home, Self-Care 01 Clinical Impression: Postoperative complication of skin involving drainage from surgical wound - Discharge Information Instructions: Wound Care, Adult Referrals: Anthony Coon MD [Primary Care Provider] - Forms: ED Department Discharge Care Plan Goals: Continue dressing changes and current medications, and recheck with Dr. Lou tomorrow morning from 9 to 12 noon at his clinic. Sepsis Event Note (ED) - Evaluation Sepsis Screening Result: No Definite Risk - Focused Exam Vital Signs: Vital Signs Temp Pulse Resp BP Pulse Ox 03/14/21 16:53 97.9 F 116 H 20 120/78 97 03/14/21 16:36 97.9 F 116 H 20 120/78 97
== END 2021-03-14 17:30 | disposition home or self-care (01) ==
LOC: JP.ED 16:20
DX: L76.82 Other postprocedural complications of skin and subcutaneous tissue (principal); E78.00 Pure hypercholesterolemia, unspecified; I10 Essential (primary) hypertension; I25.2 Old myocardial infarction; K21.9 Gastro-esophageal reflux disease without esophagitis; M19.90 Unspecified osteoarthritis, unspecified site; E11.40 Type 2 diabetes mellitus with diabetic neuropathy, unspecified; Z98.890 Other specified postprocedural states; Z79.4 Long term (current) use of insulin; Z79.82 Long term (current) use of aspirin; Z79.899 Other long term (current) drug therapy
CPT/HCPCS: 99283

== ENCOUNTER 2021-03-17 12:54 | Emergency (ER) | payer MEDICARE, OTHER ==
[2021-03-17] MEDS ORDERED: LORazepam 0.5 MG Tab PO ONE (13:44)
--- NOTE | 2021-03-17 13:48 | EDM.PDOC ---
ED HPI GENERAL MEDICAL PROBLEM - General Chief Complaint: General Stated Complaint: BACK ISSUES Time Seen by Provider: 03/17/21 13:26 Source of Information: Reports: Patient, Family, RN Notes Reviewed History Limitations: Reports: No Limitations - History of Present Illness INITIAL COMMENTS - FREE TEXT/NARRATIVE: 81-year-old gentleman presents emergency department day complaint of nausea and vomiting, he recently underwent L4-L5 spinal fusion he is postop day 10 did have some problem with leaking spinal fluid at the incision did follow-up with his surgeon recommendations are to lay flat they state the leakage has slowed down significantly. Also he was discontinued his gabapentin he normally was on 1200 mg/day this was a sudden stop. He states it has been about 1 day has had 6 bouts of nausea and vomiting generally feeling weak, felt some shortness of breath earlier today but that now has resolved - Related Data Allergies Allergy/AdvReac Type Severity Reaction Status Date / Time No Known Allergies Allergy Verified 03/17/21 13:00 Home Meds: Home Meds Insulin Aspart [NovoLOG] 6 units SUBCUT TID PRN 02/07/14 [History] atorvaSTATin Calcium [Atorvastatin Calcium] 40 mg PO DAILY 02/07/14 [History] metFORMIN [Glucophage] 500 mg PO BID 02/07/14 [History] Aspirin [Adult Low Dose Aspirin EC] 81 mg PO DAILY 05/26/14 [History] Ergocalciferol (Vitamin D2) [Vitamin D2] 1 cap PO ASDIRECTED 05/26/14 [History] Losartan [Cozaar] 50 mg PO BID 05/26/14 [History] Cholecalciferol (Vitamin D3) [Vitamin D3] 1,000 units PO BID 04/13/19 [History] Cyanocobalamin (Vitamin B-12) [B-12] 1,000 mcg PO BID 04/13/19 [History] Insulin Degludec [Tresiba Flextouch U-200] 50 units SUBCUT BEDTIME 04/13/19 [History] Liraglutide [Victoza] 1.2 mg SUBCUT DAILY 04/13/19 [History] Multivitamin [Multiple Vitamins] 1 tab PO DAILY 04/13/19 [History] Omeprazole 40 mg PO DAILY 04/13/19 [History] Tamsulosin [Flomax] 0.4 mg PO DAILY 04/13/19 [History] Citalopram Hydrobromide [Celexa] 40 mg PO DAILY 07/25/19 [History] Furosemide 80 mg PO DAILY 07/25/19 [History] Diclofenac Sodium [Voltaren] 2 g TOP QID 10/30/19 [History] Nitroglycerin [Nitrostat] 0.4 mg SL ASDIRECTED PRN 03/28/20 [History] Acetaminophen [Tylenol Extra Strength] 500 mg PO Q4HR PRN 08/25/20 [History] Ammonium Lactate [Amlactin 12% Lotion] 1 applic TOP DAILY 08/25/20 [History] Chlorzoxazone 500 mg PO BID 08/25/20 [History] Triamcinolone Acetonide [Kenalog 0.1% Crm] 1 applic TOP ASDIRECTED PRN 08/25/20 [History] Past Medical History HEENT History: Reports: Cataract, Impaired Vision Cardiovascular History: Reports: Arrhythmia, Blood Clots/VTE/DVT, CAD, Heart Murmur, High Cholesterol, Hypertension, [place], SOB on Exertion, Stents Respiratory History: Reports: Other (See Below) Other Respiratory History: ANDREWS LUNG Gastrointestinal History: Reports: GERD Genitourinary History: Reports: Urinary Incontinence Musculoskeletal History: Reports: Arthritis, Back Pain, Chronic Neurological History: Reports: Neuropathy, Diabetic, Vertigo Psychiatric History: Reports: Depression Endocrine/Metabolic History: Reports: Diabetes, Type II, IDDM Oncologic (Cancer) History: Reports: Malignant Melanoma, Prostate Dermatologic History: Reports: Melanoma, Other (See Below) Other Dermatologic History: DRY SKIN - Infectious Disease History Infectious Disease History: Reports: Chicken Pox, Measles, Mumps - Past Surgical History Head Surgeries/Procedures: Reports: None HEENT Surgical History: Reports: Adenoidectomy, Cataract Surgery, Eye Surgery, Tonsillectomy Cardiovascular Surgical History: Reports: Coronary Artery Stent Respiratory Surgical History: Reports: None GI Surgical History: Reports: Cholecystectomy, Colonoscopy, EGD, Hernia, Abdominal Male Surgical History: Reports: TURP-Transurethral Resection of Prostate, Other (See Below) Other Male Surgeries/Procedures: bladder repair Endocrine Surgical History: Reports: None Neurological Surgical History: Reports: Discectomy, Laminectomy, Lumbar Spine Musculoskeletal Surgical History: Reports: Arthroscopic Knee, Other (See Below) Other Musculoskeletal Surgeries/Procedures:: partial knee replacements, neck surg twice, back surg 3 times Oncologic Surgical History: Reports: None Dermatological Surgical History: Reports: Skin Biopsy Social & Family History - Family History Family Medical History: No Pertinent Family History - Tobacco Use Tobacco Use Status *Q: Never Tobacco User Second Hand Smoke Exposure: No - Caffeine Use Caffeine Use: Reports: Coffee, Soda Caffeine Use Comment: several cups to a pot a day - Recreational Drug Use Recreational Drug Use: No ED ROS GENERAL - Review of Systems Review Of Systems: See Below Constitutional: Reports: Weakness, Fatigue HEENT: Reports: No Symptoms Respiratory: Reports: No Symptoms Cardiovascular: Reports: Edema GI/Abdominal: Reports: Nausea, Vomiting. Denies: Abdominal Pain ED EXAM, GENERAL - Physical Exam Exam: See Below Exam Limited By: No Limitations General Appearance: Alert, Mild Distress Respiratory/Chest: No Respiratory Distress, Lungs Clear, Normal Breath Sounds, No Accessory Muscle Use, Chest Non-Tender Cardiovascular: Regular Rate, Rhythm, Systolic Murmur GI/Abdominal: Soft, Non-Tender Course - Vital Signs Last Recorded V/S: Last Vital Signs Temp 97.5 F 03/17/21 13:20 Pulse 82 03/17/21 13:20 Resp 15 03/17/21 13:20 BP 148/76 H 03/17/21 13:20 Pulse Ox 97 03/17/21 13:20 - Orders/Labs/Meds Labs: Laboratory Tests 03/17/21 03/17/21 03/17/21 Range/Units 13:52 13:52 13:52 WBC 9.9 (4.5-11.0) K/uL RBC 3.40 L (4.30-5.90) M/uL Hgb 9.6 L D (12.0-15.0) g/dL Hct 30.9 L (40.0-54.0) % MCV 91 (80-98) fL MCH 28 (27-31) pg MCHC 31 L (32-36) % Plt Count 339 (150-400) K/uL Neut % (Auto) 88 H (36-66) % Lymph % (Auto) 7 L (24-44) % [place] % (Auto) 5 (2-6) % Eos % (Auto) 0 L (2-4) % Baso % (Auto) 0 (0-1) % Sodium 144 (140-148) mmol/L Potassium 4.2 (3.6-5.2) mmol/L Chloride 103 (100-108) mmol/L Carbon Dioxide 31 (21-32) mmol/L Anion Gap 9.7 (5.0-14.0) mmol/L BUN 21 H (7-18) mg/dL Creatinine 1.5 H (0.8-1.3) mg/dL Est Cr Clr Drug Dosing 36.04 mL/min Estimated GFR (MDRD) 45 L (>60) Glucose 179 H (74-106) mg/dL Lactic Acid 2.0 (0.4-2.0) mmol/L Calcium 8.8 (8.5-10.1) mg/dL Total Bilirubin 0.4 (0.2-1.0) mg/dL AST 12 L (15-37) U/L ALT 19 (12-78) U/L Alkaline Phosphatase 90 (46-116) U/L C-Reactive Protein 2.46 H (0.0-0.3) mg/dL Total Protein 6.5 (6.4-8.2) g/dL Albumin 2.8 L (3.4-5.0) g/dL Globulin 3.7 H (2.3-3.5) g/dL Albumin/Globulin Ratio 0.8 L (1.2-2.2) Meds: Medications Discontinued Medications Generic Name Dose Route Start Last Admin Trade Name Mike PRN Reason Stop Dose Admin Lorazepam 0.5 mg 03/17/21 13:44 03/17/21 13:49 Lorazepam 0.5 Mg Tab PO 03/17/21 13:45 0.5 mg ONETIME ONE Administration Departure - Departure Time of Disposition: 14:48 Disposition: Home, Self-Care 01 Condition: Fair Clinical Impression: Withdrawal complaint - Discharge Information Referrals: Anthony Coon MD [Primary Care Provider] - Forms: ED Department Discharge Additional Instructions: Try the gabapentin once a day 600 mg for the next 5 days then reduce the dose to 300 mg once a day for the next 5 days, use the Ativan as needed for symptomatic relief, continue to use your Percocet as needed for pain control keep your follow-up appointment with neurosurgery please return to the emergency department with worsening of symptoms such as shortness of breath. Sepsis Event Note (ED) - Focused Exam Vital Signs: Vital Signs Temp Pulse Resp BP Pulse Ox 03/17/21 13:20 97.5 F 82 15 148/76 H 97 - Assessment/Plan Plan: Assessment Acuity = acute Site and laterality = withdrawal symptoms Etiology = probable gabapentin Manifestations = nausea vomiting increased anxiety Location of injury = Home Lab values = hemoglobin low at 9.6 consistent normochromic anemia creatinine sung vated 1.5 consistent with chronic renal failure stage T3a lactic acid normal 2.0 CRP slightly elevated 2.46 P Plan Call discussed case with neurosurgery Dr. Abbasi at 1430 agreed to the plan of gabapentin reductions of the plan is we will do 600 mg once a day for the next 5 days then 300 mg once a day for the next 5 days for a slow taper he will try the Ativan as needed in combination with his Percocet for pain control prescription written for Ativan 1 mg p.o. 3 times daily as needed total #15 and Percocet 5/325 1 tablet p.o. every 4-6 hours as needed total #20 This note was dictated using [employer] voice recognition software please call with any questions on syntax or grammar.
== END 2021-03-17 14:56 | disposition home or self-care (01) ==
LOC: JP.ED 12:54
DX: F19.239 Other psychoactive substance dependence with withdrawal, unspecified (principal); I25.10 Atherosclerotic heart disease of native coronary artery without angina pectoris; I10 Essential (primary) hypertension; I25.2 Old myocardial infarction; K21.9 Gastro-esophageal reflux disease without esophagitis; E11.40 Type 2 diabetes mellitus with diabetic neuropathy, unspecified; M19.90 Unspecified osteoarthritis, unspecified site; Z79.899 Other long term (current) drug therapy; Z79.82 Long term (current) use of aspirin; Z79.4 Long term (current) use of insulin; Z86.718 Personal history of other venous thrombosis and embolism
CPT/HCPCS: 36415; 80053; 83605; 85025; 86140; 99284; A9270

== ENCOUNTER 2021-06-02 13:11 | Observation (INO) | payer MEDICARE, OTHER ==
[2021-06-02] MEDS ORDERED: Sodium Chloride 0.9% 10 ML Syringe FLUSH PRN (13:16)
--- NOTE | 2021-06-02 13:26 | EDM.PDOC ---
ED HPI GENERAL MEDICAL PROBLEM - General Chief Complaint: Cardiovascular Problem Stated Complaint: MEDICAL Time Seen by Provider: 06/02/21 13:15 Source of Information: Reports: Patient, Old Records, RN History Limitations: Reports: No Limitations - History of Present Illness INITIAL COMMENTS - FREE TEXT/NARRATIVE: 81 yo male presents with STARKS from cardiac rehab. He had an aortic valve replaced this past May. He has had some recent diarrhea and has had his furosemide held the past couple of days due to an issue with his renal fxn. He is not aware of any hx of afib. Today at cardiac rehab they noted him to have some bouts of tachycardia while on a heart monitor so brought him to the ER. Eulogio denies chest pain, nausea or diaphoresis. He first became aware of the SOB walking to rehab today, but is not aware of his heart beating any differently from normal. He does have a pHx of frequent PVC's. Onset: Today Onset Date: 06/02/21 Duration: Minutes: Location: Reports: Chest Quality: Reports: Other (no pain reported) Severity: Mild Improves with: Reports: Rest Worsens with: Reports: Movement (exercise) Context: Reports: Other (See HPI) Associated Symptoms: Reports: Shortness of Breath. Denies: Chest Pain, Cough, Diaphoresis, Fever/Chills, Nausea/Vomiting Treatments INSURANCE CLAIM REPRESENTATIVE: Reports: Other (see below) (none) - Related Data Allergies Allergy/AdvReac Type Severity Reaction Status Date / Time No Known Allergies Allergy Verified 03/17/21 13:00 Home Meds: Home Meds Insulin Aspart [NovoLOG] 6 units SUBCUT TID PRN 02/07/14 [History] atorvaSTATin Calcium [Atorvastatin Calcium] 40 mg PO DAILY 02/07/14 [History] metFORMIN [Glucophage] 500 mg PO BID 02/07/14 [History] Aspirin [Adult Low Dose Aspirin EC] 81 mg PO DAILY 05/26/14 [History] Ergocalciferol (Vitamin D2) [Vitamin D2] 1 cap PO ASDIRECTED 05/26/14 [History] Losartan [Cozaar] 50 mg PO BID 05/26/14 [History] Cholecalciferol (Vitamin D3) [Vitamin D3] 1,000 units PO BID 04/13/19 [History] Cyanocobalamin (Vitamin B-12) [B-12] 1,000 mcg PO BID 04/13/19 [History] Insulin Degludec [Tresiba Flextouch U-200] 50 units SUBCUT BEDTIME 04/13/19 [History] Liraglutide [Victoza] 1.2 mg SUBCUT DAILY 04/13/19 [History] Multivitamin [Multiple Vitamins] 1 tab PO DAILY 04/13/19 [History] Omeprazole 40 mg PO DAILY 04/13/19 [History] Tamsulosin [Flomax] 0.4 mg PO DAILY 04/13/19 [History] Citalopram Hydrobromide [Celexa] 40 mg PO DAILY 07/25/19 [History] Furosemide 80 mg PO DAILY 07/25/19 [History] Diclofenac Sodium [Voltaren] 2 g TOP QID 10/30/19 [History] Nitroglycerin [Nitrostat] 0.4 mg SL ASDIRECTED PRN 03/28/20 [History] Acetaminophen [Tylenol Extra Strength] 500 mg PO Q4HR PRN 08/25/20 [History] Ammonium Lactate [Amlactin 12% Lotion] 1 applic TOP DAILY 08/25/20 [History] Chlorzoxazone 500 mg PO BID 08/25/20 [History] Triamcinolone Acetonide [Kenalog 0.1% Crm] 1 applic TOP ASDIRECTED PRN 08/25/20 [History] Past Medical History HEENT History: Reports: Cataract, Impaired Vision Cardiovascular History: Reports: Arrhythmia, Blood Clots/VTE/DVT, CAD, Heart Murmur, High Cholesterol, Hypertension, [place], SOB on Exertion, Stents Respiratory History: Reports: Other (See Below) Other Respiratory History: ANDREWS LUNG Gastrointestinal History: Reports: GERD Genitourinary History: Reports: Urinary Incontinence Musculoskeletal History: Reports: Arthritis, Back Pain, Chronic Neurological History: Reports: Neuropathy, Diabetic, Vertigo Psychiatric History: Reports: Depression Endocrine/Metabolic History: Reports: Diabetes, Type II, IDDM Oncologic (Cancer) History: Reports: Malignant Melanoma, Prostate Dermatologic History: Reports: Melanoma, Other (See Below) Other Dermatologic History: DRY SKIN - Infectious Disease History Infectious Disease History: Reports: Chicken Pox, Measles, Mumps - Past Surgical History Head Surgeries/Procedures: Reports: None HEENT Surgical History: Reports: Adenoidectomy, Cataract Surgery, Eye Surgery, Tonsillectomy Cardiovascular Surgical History: Reports: Coronary Artery Stent Respiratory Surgical History: Reports: None GI Surgical History: Reports: Cholecystectomy, Colonoscopy, EGD, Hernia, Abdominal Male Surgical History: Reports: TURP-Transurethral Resection of Prostate, Other (See Below) Other Male Surgeries/Procedures: bladder repair Endocrine Surgical History: Reports: None Neurological Surgical History: Reports: Discectomy, Laminectomy, Lumbar Spine Musculoskeletal Surgical History: Reports: Arthroscopic Knee, Other (See Below) Other Musculoskeletal Surgeries/Procedures:: partial knee replacements, neck surg twice, back surg 3 times Oncologic Surgical History: Reports: None Dermatological Surgical History: Reports: Skin Biopsy Social & Family History - Family History Family Medical History: No Pertinent Family History - Tobacco Use Tobacco Use Status *Q: Never Tobacco User - Caffeine Use Caffeine Use: Reports: Coffee Caffeine Use Comment: several cups to a pot a day - Recreational Drug Use Recreational Drug Use: No ED ROS GENERAL - Review of Systems Review Of Systems: See Below Constitutional: Reports: No Symptoms. Denies: Fever, Chills, Diaphoresis HEENT: Reports: No Symptoms Respiratory: Denies: No Symptoms Cardiovascular: Reports: Dyspnea on Exertion. Denies: Chest Pain, Edema, Lightheadedness, Orthopnea, Palpitations (unaware) Endocrine: Reports: No Symptoms GI/Abdominal: Reports: No Symptoms. Denies: Nausea : Reports: No Symptoms Musculoskeletal: Reports: No Symptoms Skin: Reports: No Symptoms Neurological: Reports: No Symptoms Psychiatric: Reports: No Symptoms ED EXAM, GENERAL - Physical Exam Exam: See Below Exam Limited By: No Limitations General Appearance: Alert, WD/WN, No Apparent Distress Eye Exam: Bilateral Eye: Normal Inspection Ears: Normal External Exam, Normal Canal, Hearing Grossly Normal, Normal TMs Ear Exam: Bilateral Ear: Auricle Normal, Canal Normal Nose: Normal Inspection, No Blood Throat/Mouth: Normal Inspection, Normal Lips, Normal Oropharynx, Normal Voice, No Airway Compromise Head: Atraumatic, Normocephalic Neck: Normal Inspection Respiratory/Chest: No Respiratory Distress, Lungs Clear, Normal Breath Sounds, No Accessory Muscle Use Cardiovascular: Tachycardia, Irregularly Irregular. No: No Edema (trace LE edema bilat) GI/Abdominal: Normal Bowel Sounds, Soft, Non-Tender, No Distention Back Exam: Normal Inspection Extremities: Normal Inspection, Normal Range of Motion, Non-Tender, Pedal Edema (trace). No: No Pedal Edema Neurological: Alert, Oriented, CN II-XII Intact, Normal Cognition, No Motor/Sensory Deficits Psychiatric: Normal Affect, Normal Mood Skin Exam: Warm, Dry, Intact, Normal Color, No Rash Course - Vital Signs Text/Narrative:: Dr. Fisher called @ 1441h Last Recorded V/S: Last Vital Signs Temp 36.6 C 06/02/21 13:41 Pulse 76 06/02/21 14:12 Resp 14 06/02/21 14:12 BP 150/60 H 06/02/21 14:12 Pulse Ox 94 L 06/02/21 13:41 - Orders/Labs/Meds Orders: Active Orders 24 hr Category Date Time Status Cardiac Monitoring [RC] .As Directed Care 06/02/21 13:15 Active EKG Documentation Completion [RC] ASDIRECTED Care 06/02/21 13:16 Active Sodium Chloride 0.9% [Normal Saline] 1,000 ml Med 06/02/21 14:38 Active IV .BOLUS Sodium Chloride 0.9% [Saline Flush] Med 06/02/21 13:16 Active 10 ml FLUSH ASDIRECTED PRN Saline Lock Insert [OM.PC] Routine Oth 06/02/21 13:16 Ordered EKG 12 Lead [EK] Routine Ther 06/02/21 13:16 Ordered Medication Orders Sodium Chloride (Normal Saline) 1,000 mls @ 1,000 mls/hr IV .BOLUS ONE Stop: 06/02/21 15:37 Sodium Chloride (Sodium Chloride 0.9% 10 Ml Syringe) 10 ml FLUSH ASDIRECTED PRN PRN Reason: Keep Vein Open Last Admin: 06/02/21 13:40 Dose: 10 ml Documented by: JIAN Labs: Laboratory Tests 06/02/21 06/02/21 06/02/21 Range/Units 13:15 13:30 13:30 WBC 7.7 (4.5-11.0) K/uL RBC 4.18 L (4.30-5.90) M/uL Hgb 10.7 L (12.0-15.0) g/dL Hct 34.5 L (40.0-54.0) % MCV 83 (80-98) fL MCH 26 L (27-31) pg MCHC 31 L (32-36) % Plt Count 319 (150-400) K/uL Sodium 140 (140-148) mmol/L Potassium 4.6 (3.6-5.2) mmol/L Chloride 103 (100-108) mmol/L Carbon Dioxide 26 (21-32) mmol/L Anion Gap 10.9 (5.0-14.0) mmol/L BUN 31 H (7-18) mg/dL Creatinine 1.5 H (0.8-1.3) mg/dL Est Cr Clr Drug Dosing 36.04 mL/min Estimated GFR (MDRD) 45 L (>60) Glucose 155 H (74-106) mg/dL Calcium 8.5 (8.5-10.1) mg/dL Magnesium 2.0 (1.8-2.4) mg/dL Troponin I < 0.017 (0.000-0.056) ng/mL Urine Color Yellow (YELLOW) Urine Appearance Clear (CLEAR) Urine pH 5.0 (5.0-8.0) Ur Specific [place] 1.015 (1.008-1.030) Urine Protein Negative (NEGATIVE) mg/dL Urine Glucose (UA) Negative (NEGATIVE) mg/dL Urine Ketones Negative (NEGATIVE) mg/dL Urine Occult Blood Negative (NEGATIVE) Urine Nitrite Negative (NEGATIVE) Urine Bilirubin Negative (NEGATIVE) Urine Urobilinogen 0.2 (0.2-1.0) EU/dL Ur Leukocyte Esterase Negative (NEGATIVE) Urine RBC Not seen (0-5) Urine WBC 0-5 (0-5) Ur Epithelial Cells Not seen Amorphous Sediment Not seen Urine Bacteria Rare Urine Mucus Not seen Meds: Medications Generic Name Dose Route Start Last Admin Trade Name Freq PRN Reason Stop Dose Admin Sodium Chloride 1,000 mls @ 1,000 mls/hr 06/02/21 14:38 Normal Saline IV 06/02/21 15:37 .BOLUS ONE Sodium Chloride 10 ml 06/02/21 13:16 06/02/21 13:40 Sodium Chloride 0.9% 10 Ml Syringe FLUSH 10 ml ASDIRECTED PRN Administration Keep Vein Open Discontinued Medications Generic Name Dose Route Start Last Admin Trade Name Freq PRN Reason Stop Dose Admin Metoprolol Tartrate 50 mg 06/02/21 13:55 Metoprolol Tartrate 50 Mg Tab PO 06/02/21 13:56 ONETIME ONE Metoprolol Tartrate 25 mg 06/02/21 13:56 06/02/21 14:02 Metoprolol Tartrate 25 Mg Tab PO 06/02/21 13:57 25 mg ONETIME ONE Administration Departure - Departure Time of Disposition: 14:55 Disposition: Refer to Observation Condition: Fair Clinical Impression: Paroxysmal A-fib, Mild dehydration Referrals: PCP,None [Primary Care Provider] - Forms: ED Department Discharge Sepsis Event Note (ED) - Focused Exam Vital Signs: Vital Signs Temp Pulse Pulse Resp BP BP Pulse Ox 06/02/21 14:12 76 14 150/60 H 06/02/21 14:02 82 145/60 H 06/02/21 13:41 36.6 C 79 14 145/60 H 94 L 06/02/21 13:21 36.6 C 59 L 17 147/74 H 94 L - My Orders Last 24 Hours: My Active Orders 06/02/21 13:15 Cardiac Monitoring [RC] .As Directed 06/02/21 13:16 EKG Documentation Completion [RC] ASDIRECTED Sodium Chloride 0.9% [Saline Flush] 10 ml FLUSH ASDIRECTED PRN Saline Lock Insert [OM.PC] Routine EKG 12 Lead [EK] Routine 06/02/21 14:38 Sodium Chloride 0.9% [Normal Saline] 1,000 ml IV .BOLUS - Assessment/Plan Last 24 Hours: My Active Orders 06/02/21 13:15 Cardiac Monitoring [RC] .As Directed 06/02/21 13:16 EKG Documentation Completion [RC] ASDIRECTED Sodium Chloride 0.9% [Saline Flush] 10 ml FLUSH ASDIRECTED PRN Saline Lock Insert [OM.PC] Routine EKG 12 Lead [EK] Routine 06/02/21 14:38 Sodium Chloride 0.9% [Normal Saline] 1,000 ml IV .BOLUS
[2021-06-02] MEDS ORDERED: Metoprolol Tartrate 50 MG Tab PO ONE (13:55)
[2021-06-02] MEDS ORDERED: Metoprolol Tartrate 25 MG Tab PO ONE (13:56)
[2021-06-02] MEDS ORDERED: Sodium Chloride 0.9% 1,000 ML IV ONE (14:38)
[2021-06-02] MEDS ORDERED: Furosemide 40 MG/4 ML VIAL IVPUSH ONE (16:27)
--- NOTE | 2021-06-02 16:48 | PCM.HP.2 ---
H&P History of Present Illness - General Date of Service: 06/02/21 Admit Problem/Dx: Admission Diagnosis/Problem Admission Diagnosis/Problem Paroxysmal supraventricular tachycardia Source of Information: Patient, Family, Provider History Limitations: Reports: No Limitations - History of Present Illness Initial Comments - Free Text/Narative: CC: I have never been that winded HPI: Eulogio presents to the emergency room today from cardiac rehab after several episodes of rapid heart rate. While he was exercising today his heart rate quickly shot up into the 140s on several occasions. His baseline while reviewing of the records show that he was in a sinus rhythm with frequent PVCs. The arrhythmia is self terminating and lasted for only a short while. He has noted that he is been more short of breath over the last few days. He reports he has been short of breath for months and did have a TAVR 2 weeks ago and was hoping this would help with the problem. He has had difficulty with intermittent lower extremity swelling as well as increased dyspnea since that time. Diuretics have been held intermittently because of decreasing kidney function. He does get short of breath with activity and this improves with rest. No report of orthopnea. Currently reports only mild lower extremity edema. No chest pains. He has not had any palpitations. His weight is stable but has had some ups and downs over the past month. Work-up in the emergency room did reveal a few episodes of a narrow complex tachycardia that appears to be SVT. This lasted for only a short while before resolving. He did receive some extra beta-ronaldo in the emergency room and has been stable since that time. Laboratory studies reveal a creatinine of 1.5 with a baseline of 1.1. Examination suggests mild volume overload. He is going to be admitted for further management. - Related Data Allergies/Adverse Reactions: Allergies Allergy/AdvReac Type Severity Reaction Status Date / Time No Known Allergies Allergy Verified 03/17/21 13:00 Home Medications: Home Meds Insulin Aspart [NovoLOG] 3 units SUBCUT TID PRN 02/07/14 [History] atorvaSTATin Calcium [Atorvastatin Calcium] 40 mg PO DAILY 02/07/14 [History] metFORMIN [Glucophage] 500 mg PO BID 02/07/14 [History] Aspirin [Adult Low Dose Aspirin EC] 81 mg PO DAILY 05/26/14 [History] Ergocalciferol (Vitamin D2) [Vitamin D2] 1 cap PO ASDIRECTED 05/26/14 [History] Cholecalciferol (Vitamin D3) [Vitamin D3] 1,000 units PO DAILY 04/13/19 [History] Insulin Degludec [Tresiba Flextouch U-200] 44 units SUBCUT BEDTIME 04/13/19 [History] Liraglutide [Victoza] 1.2 mg SUBCUT DAILY 04/13/19 [History] Multivitamin [Multiple Vitamins] 1 tab PO DAILY 04/13/19 [History] Omeprazole 40 mg PO DAILY 04/13/19 [History] Tamsulosin [Flomax] 0.4 mg PO DAILY 04/13/19 [History] Citalopram Hydrobromide [Celexa] 40 mg PO DAILY 07/25/19 [History] Furosemide 40 mg PO DAILY 07/25/19 [History] Acetaminophen [Tylenol Extra Strength] 500 mg PO Q4HR PRN 08/25/20 [History] Ammonium Lactate [Amlactin 12% Lotion] 1 applic TOP DAILY 08/25/20 [History] Triamcinolone Acetonide [Kenalog 0.1% Crm] 1 applic TOP ASDIRECTED PRN 08/25/20 [History] Clopidogrel [Plavix] 75 mg PO DAILY 06/02/21 [History] Gabapentin [Neurontin] 300 mg PO BEDTIME 06/02/21 [History] Gabapentin [Neurontin] 300 mg PO TID 06/02/21 [History] Losartan [Cozaar] 12.5 mg PO DAILY 06/02/21 [History] Magnesium Chloride [Mag-64] 64 mg PO DAILY 06/02/21 [History] Melatonin 5 mg PO BEDTIME 06/02/21 [History] Metoprolol Succinate 25 mg PO DAILY 06/02/21 [History] Mirabegron [Myrbetriq] 50 mg PO DAILY 06/02/21 [History] Potassium Chloride 20 meq PO DAILY 06/02/21 [History] Past Medical History HEENT History: Reports: Cataract, Impaired Vision Cardiovascular History: Reports: Arrhythmia, Blood Clots/VTE/DVT, CAD, Heart Murmur, High Cholesterol, Hypertension, VA, SOB on Exertion, Stents Respiratory History: Reports: Other (See Below) Other Respiratory History: ANDREWS LUNG Gastrointestinal History: Reports: GERD Genitourinary History: Reports: Urinary Incontinence Musculoskeletal History: Reports: Arthritis, Back Pain, Chronic Neurological History: Reports: Neuropathy, Diabetic, Vertigo Psychiatric History: Reports: Depression Endocrine/Metabolic History: Reports: Diabetes, Type II, IDDM Oncologic (Cancer) History: Reports: Malignant Melanoma, Prostate Dermatologic History: Reports: Melanoma, Other (See Below) Other Dermatologic History: DRY SKIN - Infectious Disease History Infectious Disease History: Reports: Chicken Pox, Measles, Mumps - Past Surgical History Head Surgeries/Procedures: Reports: None HEENT Surgical History: Reports: Adenoidectomy, Cataract Surgery, Eye Surgery, Tonsillectomy Cardiovascular Surgical History: Reports: Coronary Artery Stent Respiratory Surgical History: Reports: None GI Surgical History: Reports: Cholecystectomy, Colonoscopy, EGD, Hernia, A bdominal Male Surgical History: Reports: TURP-Transurethral Resection of Prostate, Other (See Below) Other Male Surgeries/Procedures: bladder repair Endocrine Surgical History: Reports: None Neurological Surgical History: Reports: Discectomy, Laminectomy, Lumbar Spine Musculoskeletal Surgical History: Reports: Arthroscopic Knee, Other (See Below) Other Musculoskeletal Surgeries/Procedures:: partial knee replacements, neck surg twice, back surg 3 times Oncologic Surgical History: Reports: None Dermatological Surgical History: Reports: Skin Biopsy Social & Family History - Family History Family Medical History: No Pertinent Family History - Tobacco Use Tobacco Use Status *Q: Never Tobacco User - Caffeine Use Caffeine Use: Reports: Coffee Caffeine Use Comment: several cups to a pot a day - Alcohol Use Alcohol Use History: No - Recreational Drug Use Recreational Drug Use: No H&P Review of Systems - Review of Systems: Review Of Systems: See Below Free Text/Narrative: A complete 12 point review of systems was obtained. Pertinent positives and negatives are noted in the history of present illness. All other systems were reviewed and were negative except as noted. Exam - Exam Exam: See Below - Vital Signs Vital Signs: Last Vital Signs Temp 36.6 C 06/02/21 13:41 Pulse 66 06/02/21 16:23 Resp 17 06/02/21 15:15 BP 157/60 H 06/02/21 16:23 Pulse Ox 98 06/02/21 15:15 Weight: 99.79 kg - Exam Quality Assessment: No: Supplemental Oxygen General: Alert, Oriented, Cooperative. No: Mild Distress HEENT: Conjunctiva Clear, Mucosa Moist & [place]. No: Scleral Icterus Neck: Supple, JVD Lungs: Clear to Auscultation, Normal Respiratory Effort Cardiovascular: Regular Rate, Irregular Rhythm, Systolic Murmur. No: Gallop/S3 GI/Abdominal Exam: Normal Bowel Sounds, Soft, Non-Tender, No Distention Back Exam: Normal Inspection, Full Range of Motion, Other (healed surgical scar lower back in the midline ) Extremities: Pedal Edema (bilateral mild pitting to below the knee ). No: Increased Warmth Peripheral Pulses: 1+: Dorsalis Pedis (L), Dorsalis Pedis (R) Skin: Warm, Dry Neuro Extensive - Mental Status: Alert, Oriented x3, Nl Response to Commands Neuro Extensive - Motor, Sensory, Reflexes: No: Dysarthria, Abnormal Motor, Tremor Psychiatric: Alert, Normal Affect - Patient Data Lab Results Last 24 hrs: Laboratory Results - last 24 hr 06/02/21 06/02/21 06/02/21 Range/Units 13:15 13:30 13:30 WBC 7.7 (4.5-11.0) K/uL RBC 4.18 L (4.30-5.90) M/uL Hgb 10.7 L (12.0-15.0) g/dL Hct 34.5 L (40.0-54.0) % MCV 83 (80-98) fL MCH 26 L (27-31) pg MCHC 31 L (32-36) % Plt Count 319 (150-400) K/uL Sodium 140 (140-148) mmol/L Potassium 4.6 (3.6-5.2) mmol/L Chloride 103 (100-108) mmol/L Carbon Dioxide 26 (21-32) mmol/L Anion Gap 10.9 (5.0-14.0) mmol/L BUN 31 H (7-18) mg/dL Creatinine 1.5 H (0.8-1.3) mg/dL Est Cr Clr Drug Dosing 36.04 mL/min Estimated GFR (MDRD) 45 L (>60) Glucose 155 H (74-106) mg/dL Calcium 8.5 (8.5-10.1) mg/dL Magnesium 2.0 (1.8-2.4) mg/dL Troponin I < 0.017 (0.000-0.056) ng/mL Urine Color Yellow (YELLOW) Urine Appearance Clear (CLEAR) Urine pH 5.0 (5.0-8.0) Ur Specific [place] 1.015 (1.008-1.030) Urine Protein Negative (NEGATIVE) mg/dL Urine Glucose (UA) Negative (NEGATIVE) mg/dL Urine Ketones Negative (NEGATIVE) mg/dL Urine Occult Blood Negative (NEGATIVE) Urine Nitrite Negative (NEGATIVE) Urine Bilirubin Negative (NEGATIVE) Urine Urobilinogen 0.2 (0.2-1.0) EU/dL Ur Leukocyte Esterase Negative (NEGATIVE) Urine RBC Not seen (0-5) Urine WBC 0-5 (0-5) Ur Epithelial Cells Not seen Amorphous Sediment Not seen Urine Bacteria Rare Urine Mucus Not seen Result Diagrams: 06/02/21 13:30 06/02/21 13:30 #1 Interpretation EKG Date: 06/02/21 Rhythm: NSR Rate (Beats/Min): 84 [place]: Normal P-Wave: Present QRS: Normal ST-T: Normal QT: Normal WI/PQ Interval: normal Comparison: No Change EKG Interpretation Comments: This image was personally reviewed NSR with PVC's Sepsis Event Note - Evaluation Sepsis Screening Result: No Definite Risk - Focused Exam Vital Signs: Vital Signs Temp Pulse Pulse Resp BP BP Pulse Ox 06/02/21 16:23 66 157/60 H 06/02/21 15:15 68 17 141/76 H 98 06/02/21 14:41 72 150/50 H 06/02/21 14:12 76 14 150/60 H 06/02/21 14:02 82 145/60 H 06/02/21 13:41 36.6 C 79 14 145/60 H 94 L 06/02/21 13:21 36.6 C 59 L 17 147/74 H 94 L *Q Meaningful Use (ADM) - VTE Risk Assess *Q Each Risk Factor Represents 1 Point: Obesity ( BMI > 25 kg/m2), Congestive heart failure (CHF) Total Score 1 Point Risk Factors: 2 Each Risk Factor Represents 2 Points: None Total Score 2 Point Risk Factors: 0 Each Risk Factor Represents 3 Points: Age 75 Years or Greater Total Score 3 Point Risk Factors: 3 Each Risk Factor Represents 5 Points: None Total Score 5 Point Risk Factors: 0 Venous Thromboembolism Risk Factor Score *Q: 5 - Problem List (1) Paroxysmal supraventricular tachycardia SNOMED Code(s): 59136874 ICD Code: I47.1 - SUPRAVENTRICULAR TACHYCARDIA Status: Acute Current Vis it: Yes (2) (HFpEF) heart failure with preserved ejection fraction SNOMED Code(s): 610467843 ICD Code: I50.30 - UNSPECIFIED DIASTOLIC (CONGESTIVE) HEART FAILURE Status: Acute Current Visit: Yes Qualifiers: Heart failure chronicity: acute on chronic Qualified Code(s): I50.33 - Acute on chronic diastolic (congestive) heart failure (3) S/P TAVR (transcatheter aortic valve replacement) SNOMED Code(s): 8339824073712, 918924038, 580660207, 0924018286120 ICD Code: Z95.2 - PRESENCE OF PROSTHETIC HEART VALVE Status: Chronic Current Visit: Yes (4) Type 2 diabetes mellitus SNOMED Code(s): 11018837 ICD Code: E11.9 - TYPE 2 DIABETES MELLITUS WITHOUT COMPLICATIONS Status: Chronic Current Visit: No Qualifiers: Diabetes mellitus prison insulin use: with prison use Diabetes mellitus complication status: with other specified complication Qualified Code(s): E11.69 - Type 2 diabetes mellitus with other specified complication; Z79.4 - assistant terminal manager (current) use of insulin (5) CKD (chronic kidney disease) stage 3, GFR 30-59 ml/min SNOMED Code(s): 275763241 ICD Code: N18.30 - CHRONIC KIDNEY DISEASE, STAGE 3 UNSPECIFIED Status: Chronic Current Visit: No Qualifiers: Chronic kidney disease stage 3 subtype: stage 3a (GFR 45-59) Qualified Code(s): N18.31 - Chronic kidney disease, stage 3a Problem List Initiated/Reviewed/Updated: Yes Orders Last 24hrs: Active Orders 24 hr Category Date Time Status Patient Status Manage Transfer [TRANSFER] Routine ADT 06/02/21 16:30 Active Cardiac Monitoring [RC] .As Directed Care 06/02/21 13:15 Active EKG Documentation Completion [RC] ASDIRECTED Care 06/02/21 13:16 Active Sodium Chloride 0.9% [Saline Flush] Med 06/02/21 13:16 Active 10 ml FLUSH ASDIRECTED PRN Saline Lock Insert [OM.PC] Routine Oth 06/02/21 13:16 Ordered Resuscitation Status Routine Resus Stat 06/02/21 16:32 Ordered EKG 12 Lead [EK] Routine Ther 06/02/21 13:16 Ordered Medication Orders Sodium Chloride (Sodium Chloride 0.9% 10 Ml Syringe) 10 ml FLUSH ASDIRECTED PRN PRN Reason: Keep Vein Open Last Admin: 06/02/21 13:40 Dose: 10 ml Documented by: JIAN Assessment/Plan Comment:: ASSESSMENT AND PLAN - Paroxysmal SVT-several episodes of a regular narrow complex tachycardia that appears to be consistent with SVT. No history of atrial fibrillation. Episodes of SVT were noted on his echocardiogram from 2 months ago. He is on a beta- ronaldo and extra beta-ronaldo seems to be helping. Trigger may have been mild volume overload. -Continue long-acting metoprolol, consider slight dose increase -Optimize volume status as discussed below -Cardiac monitoring -Consider anticoagulation if he has additional episodes HFpEF-most recent echocardiogram shows an ejection fraction of 50 to 55%. Risk factors for diastolic heart failure include diabetes and hypertension. Mild evidence for volume overload at this time. He is not hypoxic. -IV furosemide x1 now -Reassess volume status in the morning -Continue medical management Severe aortic stenosis status post TAVR-valve replacement completed on 15 May. Insulin-dependent diabetes mellitus-patient reports frequent hypoglycemia in the morning. -Decrease bedtime dose of long-acting insulin to 40 units -Accu-Cheks -Hold sliding scale Maintenance issues - -DVT prophylaxis-mechanical -GI prophylaxis-PPI -Nutrition-consistent carbohydrates -Mcclellan catheter-not indicated CODE STATUS -full code Admission justification -this patient will be admitted for observation to monitor for additional episodes of SVT and to optimize volume status Disposition -I anticipate discharge home after the hospital stay Primary care physician -Dr. Anthony Fisher M.D. - Mortality Measure Prognosis:: Good
[2021-06-02] MEDS ORDERED: metFORMIN 500 MG Tab *PTOM PO SCH (17:00)
[2021-06-02] MEDS ORDERED: LORazepam 2 MG/ML SDV IVPUSH PRN (17:18)
[2021-06-02] MEDS ORDERED: Ondansetron 4 MG/2 ML SDV IV PRN (17:18)
[2021-06-02] MEDS ORDERED: Ondansetron 4 MG Tab.DIS PO PRN (17:18)
[2021-06-02] MEDS ORDERED: Acetaminophen 325 MG Tab PO PRN (17:18)
[2021-06-02] MEDS ORDERED: Magnesium Hydroxide 400 MG/5 ML Susp 30 ML Cup PO PRN (17:18)
[2021-06-02] MEDS ORDERED: Melatonin 3 MG Tab PO PRN (17:18)
[2021-06-02] MEDS: metFORMIN 500 MG Tab PO SCH ×2 (19:25→21:30)
[2021-06-02] MEDS ORDERED: Gabapentin 300 MG Cap PO SCH (21:00)
[2021-06-02] MEDS ORDERED: TRESIBA 200 UNIT/ML SUBCUT SCH (21:00)
[2021-06-02] MEDS ORDERED: MELATONIN 5 MG PO SCH (21:00)
[2021-06-03] MEDS ORDERED: Clopidogrel 75 MG **PTOM PO SCH (09:00)
[2021-06-03] MEDS ORDERED: Potassium Chloride 20 MEQ **PTOM PO SCH (09:00)
[2021-06-03] MEDS ORDERED: CITALOPRAM 40 MG PO SCH (09:00)
[2021-06-03] MEDS ORDERED: Gabapentin 300 MG **PTOM PO SCH ×2 (09:00→21:00)
[2021-06-03] MEDS ORDERED: LIRAGLUTIDE 0.6 MG/0.1 ML SUBCUT SCH (09:00)
[2021-06-03] MEDS ORDERED: OMEPRAZOLE 40 MG PO SCH (09:00)
[2021-06-03] MEDS ORDERED: METFORMIN 500 MG PO SCH (09:00)
[2021-06-03] MEDS ORDERED: Cholecalciferol (Vitamin D3) 25 MCG Tab PO SCH (09:00)
[2021-06-03] MEDS ORDERED: MAGNESIUM CHLORIDE 64 MG PO SCH (09:00)
[2021-06-03] MEDS ORDERED: MULTIPLE VITAMINS PO SCH (09:00)
--- NOTE | 2021-06-03 10:21 | PCM.DCSUM1 ---
Discharge Summary - Hospital Course Brief History: 81-year-old male with history of insulin-dependent diabetes mellitus, heart failure with preserved ejection fraction, recent TAVR and stage III chronic kidney disease who presented from cardiac rehab with dyspnea and SVT. He was admitted for observation to optimize volume status and monitor heart rate and rhythm. Diagnosis: Stroke: No - Discharge Data Discharge Date: 06/03/21 Discharge Disposition: Home, Self-Care 01 Condition: Good - Referral to Home Health Primary Care Physician: PCP None - Discharge Diagnosis/Problem(s) (1) Paroxysmal supraventricular tachycardia SNOMED Code(s): 74317362 ICD Code: I47.1 - SUPRAVENTRICULAR TACHYCARDIA Status: Acute Current Visit: Yes (2) (HFpEF) heart failure with preserved ejection fraction SNOMED Code(s): 008941714 ICD Code: I50.30 - UNSPECIFIED DIASTOLIC (CONGESTIVE) HEART FAILURE Status: Acute Current Visit: Yes Qualifiers: Heart failure chronicity: acute on chronic Qualified Code(s): I50.33 - Acute on chronic diastolic (congestive) heart failure (3) S/P TAVR (transcatheter aortic valve replacement) SNOMED Code(s): 1926708509301, [id number], [id number], 5556065319199 ICD Code: Z95.2 - PRESENCE OF PROSTHETIC HEART VALVE Status: Chronic Current Visit: Yes (4) Type 2 diabetes mellitus SNOMED Code(s): 76685354 ICD Code: E11.9 - TYPE 2 DIABETES MELLITUS WITHOUT COMPLICATIONS Status: Chronic Current Visit: No Qualifiers: 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 Diabetes mellitus complication status: with other specified complication Qualified Code(s): E11.69 - Type 2 diabetes mellitus with other specified complication; Z79.4 - retirement (current) use of insulin (5) CKD (chronic kidney disease) stage 3, GFR 30-59 ml/min SNOMED Code(s): 337656492 ICD Code: N18.30 - CHRONIC KIDNEY DISEASE, STAGE 3 UNSPECIFIED Status: Chronic Current Visit: No Qualifiers: Chronic kidney disease stage 3 subtype: stage 3a (GFR 45-59) Qualified Code(s): N18.31 - Chronic kidney disease, stage 3a - Patient Summary/Data Hospital Course: Eulogio was sent to the emergency room from cardiac rehab after he reported dyspnea and they noted episodes of SVT. Work-up in the emergency room did document episodes of SVT with a narrow complex regular tachycardia with the rate of about 140. These episodes were fairly short-lived and did self terminate. He received 2 doses of metoprolol and this did seem to settle down the episodes. His creatinine was 1.5 with a baseline of about 1.1. He was admitted for observation to manage volume status and monitor for the arrhythmia. Examination in the emergency room was consistent with volume overload and he did receive a dose of IV furosemide. Overnight we did document 1 very short episode of SVT. This lasted only a matter of seconds and then self terminated. The morning after admission the patient feels well. His shortness of breath has improved and he has been up walking without significant abnormalities. His volume status is appropriate today. Creatinine is slightly higher at 1.7. I did call and talk to Dr. Muniz with cardiology at [facility] in [place]. He was kind enough to review the case with me. At this point the plan will be to continue the diuretics since they provide benefit with symptoms as well as his volume. We will likely have to tolerate a slightly higher creatinine to balance symptoms and blood tests. It is unclear how big of a role this SVT is playing in the heart failure type picture. His baseline heart rate is around 60 and with his frequent PVCs his functional heart rate is probably in the 50s. I am hesitant to go up on the beta-ronaldo to help with the arrhythmia. The plan is for him to have a 48-hour Holter monitor when they are available hopefully early in the week. This may provide some additional benefit to determine the arrhythmia burden. He may be a candidate for ablation. No medication changes were made at the time of discharge. He will have early follow-up with his primary care. - Patient Instructions Diet: Heart Healthy Diet Activity: As Tolerated Showering/Bathing: May Shower Other/Special Instructions: 1. You were in the hospital for observation after an episode of shortness of breath and tachycardia noted in cardiac rehab. I suspect the shortness of breath was caused by extra fluid in your body that has accumulated because of congestive heart failure with a preserved ejection fraction. Your volume status appears to be appropriate today. Your kidney function is stable. At this point I recommend we continue your current home medication regimen including the furosemide. 2. Continue your usual home medications as previously prescribed. 3. I have placed an order for a Holter monitor. You will be contacted by the hospital when the units are available, hopefully later this week. This will be in place for 48 hours to monitor your heart rate and rhythm and determine how frequent and for how long the abnormal rhythm is present. That information will be shared with your primary care and cardiology team. 4. Follow up with Dr. Coon this week to recheck your volume status and kidney function. - Discharge Plan *PRESCRIPTION DRUG MONITORING PROGRAM REVIEWED*: Not Applicable *COPY OF PRESCRIPTION DRUG MONITORING REPORT IN PATIENT KATI: Not Applicable Home Medications: Home Meds Insulin Aspart [NovoLOG] 3 units SUBCUT TID PRN 02/07/14 [History] atorvaSTATin Calcium [Atorvastatin Calcium] 40 mg PO DAILY 02/07/14 [History] metFORMIN [Glucophage] 500 mg PO BID 02/07/14 [History] Aspirin [Adult Low Dose Aspirin EC] 81 mg PO DAILY 05/26/14 [History] Ergocalciferol (Vitamin D2) [Vitamin D2] 1 cap PO ASDIRECTED 05/26/14 [History] Cholecalciferol (Vitamin D3) [Vitamin D3] 1,000 units PO DAILY 04/13/19 [History] Insulin Degludec [Tresiba Flextouch U-200] 44 units SUBCUT BEDTIME 04/13/19 [History] Liraglutide [Victoza] 1.2 mg SUBCUT DAILY 04/13/19 [History] Multivitamin [Multiple Vitamins] 1 tab PO DAILY 04/13/19 [History] Omeprazole 40 mg PO DAILY 04/13/19 [History] Tamsulosin [Flomax] 0.4 mg PO DAILY 04/13/19 [History] Citalopram Hydrobromide [Celexa] 40 mg PO DAILY 07/25/19 [History] Furosemide 40 mg PO DAILY 07/25/19 [History] Acetaminophen [Tylenol Extra Strength] 500 mg PO Q4HR PRN 08/25/20 [History] Ammonium Lactate [Amlactin 12% Lotion] 1 applic TOP DAILY 08/25/20 [History] Triamcinolone Acetonide [Kenalog 0.1% Crm] 1 applic TOP ASDIRECTED PRN 08/25/20 [History] Clopidogrel [Plavix] 75 mg PO DAILY 06/02/21 [History] Gabapentin [Neurontin] 300 mg PO BID 06/02/21 [History] Gabapentin [Neurontin] 600 mg PO BEDTIME 06/02/21 [History] Losartan [Cozaar] 12.5 mg PO DAILY 06/02/21 [History] Magnesium Chloride [Mag-64] 64 mg PO BID 06/02/21 [History] Melatonin 5 mg PO BEDTIME 06/02/21 [History] Metoprolol Succinate 25 mg PO DAILY 06/02/21 [History] Mirabegron [Myrbetriq] 50 mg PO DAILY 06/02/21 [History] Potassium Chloride 20 meq PO DAILY 06/02/21 [History] Oxygen Therapy Mode: Room Air Patient Handouts: Supraventricular Tachycardia, Adult Referrals: Anthony Coon MD [Physician] - (f/u in 1 week - follow up hospital stay for SVT, CHF. BMP on day of visit ) - Discharge Summary/Plan Comment DC Time >30 min.: Yes (45-coordinate with cardiology and holter monitor ) - Patient Data Vitals - Most Recent: Last Vital Signs Temp 35.2 C L 06/03/21 06:56 Pulse 67 06/03/21 06:56 Resp 18 06/03/21 06:56 BP 139/65 06/03/21 06:56 Pulse Ox 95 06/03/21 06:56 Weight - Most Recent: 95.1 kg I&O - Last 24 hours: Intake & Output 06/02/21 06/03/21 06/03/21 22:59 06:59 14:59 Intake Total 300 460 Output Total 1150 180 Balance -1150 120 460 Lab Results - Last 24 hrs: Laboratory Results - last 24 hr 06/02/21 06/02/21 06/02/21 Range/Units 13:15 13:30 13:30 WBC 7.7 (4.5-11.0) K/uL RBC 4.18 L (4.30-5.90) M/uL Hgb 10.7 L (12.0-15.0) g/dL Hct 34.5 L (40.0-54.0) % MCV 83 (80-98) fL MCH 26 L (27-31) pg MCHC 31 L (32-36) % Plt Count 319 (150-400) K/uL Sodium 140 (140-148) mmol/L Potassium 4.6 (3.6-5.2) mmol/L Chloride 103 (100-108) mmol/L Carbon Dioxide 26 (21-32) mmol/L Anion Gap 10.9 (5.0-14.0) mmol/L BUN 31 H (7-18) mg/dL Creatinine 1.5 H (0.8-1.3) mg/dL Est Cr Clr Drug Dosing 36.04 mL/min Estimated GFR (MDRD) 45 L (>60) Glucose 155 H (74-106) mg/dL POC Glucose (74-106) mg/dL Calcium 8.5 (8.5-10.1) mg/dL Magnesium 2.0 (1.8-2.4) mg/dL Troponin I < 0.017 (0.000-0.056) ng/mL Urine Color Yellow (YELLOW) Urine Appearance Clear (CLEAR) Urine pH 5.0 (5.0-8.0) Ur Specific [place] 1.015 (1.008-1.030) Urine Protein Negative (NEGATIVE) mg/dL Urine Glucose (UA) Negative (NEGATIVE) mg/dL Urine Ketones Negative (NEGATIVE) mg/dL Urine Occult Blood Negative (NEGATIVE) Urine Nitrite Negative (NEGATIVE) Urine Bilirubin Negative (NEGATIVE) Urine Urobilinogen 0.2 (0.2-1.0) EU/dL Ur Leukocyte Esterase Negative (NEGATIVE) Urine RBC Not seen (0-5) Urine WBC 0-5 (0-5) Ur Epithelial Cells Not seen Amorphous Sediment Not seen Urine Bacteria Rare Urine Mucus Not seen 06/02/21 06/02/21 06/03/21 Range/Units 17:49 21:08 04:10 WBC (4.5-11.0) K/uL RBC (4.30-5.90) M/uL Hgb (12.0-15.0) g/dL Hct (40.0-54.0) % MCV (80-98) fL MCH (27-31) pg MCHC (32-36) % Plt Count (150-400) K/uL Sodium 142 (140-148) mmol/L Potassium 4.0 (3.6-5.2) mmol/L Chloride 104 (100-108) mmol/L Carbon Dioxide 28 (21-32) mmol/L Anion Gap 10.2 (5.0-14.0) mmol/L BUN 36 H (7-18) mg/dL Creatinine 1.7 H (0.8-1.3) mg/dL Est Cr Clr Drug Dosing 31.80 mL/min Estimated GFR (MDRD) 39 L (>60) Glucose 162 H (74-106) mg/dL POC Glucose 142 H 136 H (74-106) mg/dL Calcium 8.2 L (8.5-10.1) mg/dL Magnesium (1.8-2.4) mg/dL Troponin I (0.000-0.056) ng/mL Urine Color (YELLOW) Urine Appearance (CLEAR) Urine pH (5.0-8.0) Ur Specific [place] (1.008-1.030) Urine Protein (NEGATIVE) mg/dL Urine Glucose (UA) (NEGATIVE) mg/dL Urine Ketones (NEGATIVE) mg/dL Urine Occult Blood (NEGATIVE) Urine Nitrite (NEGATIVE) Urine Bilirubin (NEGATIVE) Urine Urobilinogen (0.2-1.0) EU/dL Ur Leukocyte Esterase (NEGATIVE) Urine RBC (0-5) Urine WBC (0-5) Ur Epithelial Cells Amorphous Sediment Urine Bacteria Urine Mucus 06/03/21 Range/Units 07:25 WBC (4.5-11.0) K/uL RBC (4.30-5.90) M/uL Hgb (12.0-15.0) g/dL Hct (40.0-54.0) % MCV (80-98) fL MCH (27-31) pg MCHC (32-36) % Plt Count (150-400) K/uL Sodium (140-148) mmol/L Potassium (3.6-5.2) mmol/L Chloride (100-108) mmol/L Carbon Dioxide (21-32) mmol/L Anion Gap (5.0-14.0) mmol/L BUN (7-18) mg/dL Creatinine (0.8-1.3) mg/dL Est Cr Clr Drug Dosing mL/min Estimated GFR (MDRD) (>60) Glucose (74-106) mg/dL POC Glucose 100 (74-106) mg/dL Calcium (8.5-10.1) mg/dL Magnesium (1.8-2.4) mg/dL Troponin I (0.000-0.056) ng/mL Urine Color (YELLOW) Urine Appearance (CLEAR) Urine pH (5.0-8.0) Ur Specific [place] (1.008-1.030) Urine Protein (NEGATIVE) mg/dL Urine Glucose (UA) (NEGATIVE) mg/dL Urine Ketones (NEGATIVE) mg/dL Urine Occult Blood (NEGATIVE) Urine Nitrite (NEGATIVE) Urine Bilirubin (NEGATIVE) Urine Urobilinogen (0.2-1.0) EU/dL Ur Leukocyte Esterase (NEGATIVE) Urine RBC (0-5) Urine WBC (0-5) Ur Epithelial Cells Amorphous Sediment Urine Bacteria Urine Mucus Med Orders - Current: Current Medications Acetaminophen (Acetaminophen 325 Mg Tab) 650 mg PO Q4H PRN PRN Reason: Pain (Mild 1-3)/fever Aspirin (Aspirin 81 Mg Tab.Ec Ptom) 81 mg PO BEDTIME [facility] Cholecalciferol (Cholecalciferol (Vitamin D3) 25 Mcg Tab) 25 mcg PO DAILY [facility] Last Admin: 06/03/21 09:42 Dose: Not Given Documented by: Clopidogrel Bisulfate (Clopidogrel 75 Mg Ptom) 75 mg PO DAILY [facility] Last Admin: 06/03/21 09:38 Dose: 75 mg Documented by: Gabapentin (Gabapentin 300 Mg Ptom) 300 mg PO BEDTIME [facility] Gabapentin (Gabapentin 300 Mg Ptom) 300 mg PO TID [facility] Last Admin: 06/03/21 09:37 Dose: 300 mg Documented by: Liraglutide (Liraglutide (Rdna Origin) 0.6 Mg/0.1 Ml 3 Ml Ptom) 1.2 mg SUBCUT DAILY [facility] Last Admin: 06/03/21 09:40 Dose: 1.2 mg Documented by: Lorazepam (Lorazepam 2 Mg/Ml Sdv) 0.5 mg IVPUSH Q4H PRN PRN Reason: Nausea/Vomiting Losartan Potassium (Losartan 25 Mg Ptom) 12.5 mg PO BEDTIME [facility] Magnesium Hydroxide (Magnesium Hydroxide 400 Mg/5 Ml Susp 30 Ml Cup) 30 ml PO Q12H PRN PRN Reason: Constipation Melatonin (Melatonin 3 Mg Tab) 9 mg PO BEDTIME PRN PRN Reason: Sleep Last Admin: 06/02/21 21:37 Dose: 9 mg Documented by: Metformin HCl (Metformin 500 Mg Ptom) 500 mg PO BIDMEALS [facility] Last Admin: 06/03/21 09:34 Dose: 500 mg Documented by: Metoprolol Succinate (Metoprolol Succinate 25 Mg Ptom) 25 mg PO BEDTIME [facility] Citalopram 40 Mg (Ptom) 0 mg PO DAILY [facility] Last Admin: 06/03/21 09:31 Dose: 1 mg Documented by: Magnesium Chloride (64 Mg Ptom) 0 mg PO DAILY [facility] Last Admin: 06/03/21 09:35 Dose: 64 mg Documented by: Melatonin 5 Mg (Ptom) 5 mg PO BEDTIME [facility] Last Admin: 06/03/21 08:37 Dose: Not Given Documented by: Myrbetriq 50 Mg (Ptom) 0 mg PO BEDTIME [facility] Multiple Vitamins (Ptom) 1 tab PO DAILY [facility] Last Admin: 06/03/21 09:37 Dose: 1 tab Documented by: Omeprazole 40 Mg (Ptom) 40 mg PO DAILY@0730 [facility] Last Admin: 06/03/21 09:32 Dose: 40 mg Documented by: Atorvastatin 40mg (Ptom) 0 mg PO BEDTIME [facility] Ondansetron HCl (Ondansetron 4 Mg/2 Ml Sdv) 4 mg IV Q6H PRN PRN Reason: Nausea/Vomiting Ondansetron HCl (Ondansetron 4 Mg Tab.Dis) 4 mg PO Q6H PRN PRN Reason: Nausea able to take PO Tresiba 200 Unit/Ml (Pen *Pt Own Med*) 0 each SUBCUT BEDTIME [facility] Last Admin: 06/02/21 21:47 Dose: 40 each Documented by: Potassium Chloride (Potassium Chloride 20 Meq Ptom) 20 meq PO DAILY [facility] Last Admin: 06/03/21 09:35 Dose: 20 meq Documented by: Senna/Docusate Sodium (Docusate Sodium/Sennosides 50-8.6 Mg Tab) 1 tab PO BID PRN PRN Reason: Constipation Sodium Chloride (Sodium Chloride 0.9% 10 Ml Syringe) 10 ml FLUSH ASDIRECTED PRN PRN Reason: Keep Vein Open Last Admin: 06/02/21 13:40 Dose: 10 ml Documented by: Tamsulosin HCl (Tamsulosin 0.4 Mg Ptom) 0.4 mg PO BEDTIME GEM Discontinued Medications Furosemide (Furosemide 40 Mg/4 Ml Vial) 40 mg IVPUSH NOW ONE Stop: 06/02/21 16:28 Last Admin: 06/02/21 16:40 Dose: 40 mg Documented by: Gabapentin (Gabapentin 300 Mg Cap) 300 mg PO BEDTIME [facility] Sodium Chloride (Normal Saline) 1,000 mls @ 1,000 mls/hr IV .BOLUS ONE Stop: 06/02/21 15:37 Last Admin: 06/02/21 14:48 Dose: 1,000 mls/hr Documented by: Metformin HCl (Metformin 500 Mg Tab) 500 mg PO BIDMEALS [facility] Last Admin: 06/02/21 21:30 Dose: Not Given Documented by: Metoprolol Tartrate (Metoprolol Tartrate 50 Mg Tab) 50 mg PO ONETIME ONE Stop: 06/02/21 13:56 Last Admin: 06/02/21 17:24 Dose: Not Given Documented by: Metoprolol Tartrate (Metoprolol Tartrate 25 Mg Tab) 25 mg PO ONETIME ONE Stop: 06/02/21 13:57 Last Admin: 06/02/21 14:02 Dose: 25 mg Documented by: Gabapentin 300 Mg (Cap *Pt Own Med*) 0 each PO TID GEM Last Admin: 06/02/21 21:47 Dose: 1 each Documented by: Gabapentin 300 Mg (Cap *Pt Own Med*) 0 each PO BEDTIME [facility] Last Admin: 06/02/21 21:47 Dose: 1 each Documented by: Metformin 500 Mg Tab (*Ptom*) 0 each PO BIDMEALS [facility] Last Admin: 06/02/21 19:00 Dose: 1 each Documented by:
[2021-06-03] MEDS ORDERED: MYRBETRIQ 50 MG PO SCH (21:00)
[2021-06-03] MEDS ORDERED: Losartan 25 MG **PTOM PO SCH (21:00)
[2021-06-03] MEDS ORDERED: Tamsulosin 0.4 MG **PTOM PO SCH (21:00)
[2021-06-03] MEDS ORDERED: Aspirin 81 MG Tab.EC **PTOM PO SCH (21:00)
[2021-06-03] MEDS ORDERED: Metoprolol Succinate 25 MG **PTOM PO SCH (21:00)
== END 2021-06-03 12:44 | disposition home or self-care (01) ==
LOC: JP.ED 13:11 → JP.MS 16:30
PROVIDERS: ADMIT Internal Medicine; ATTEND Internal Medicine
DX: I47.1 Supraventricular tachycardia (principal); I25.10 Atherosclerotic heart disease of native coronary artery without angina pectoris; E78.00 Pure hypercholesterolemia, unspecified; I25.2 Old myocardial infarction; E11.40 Type 2 diabetes mellitus with diabetic neuropathy, unspecified; I50.33 Acute on chronic diastolic (congestive) heart failure; I13.0 Hypertensive heart and chronic kidney disease with heart failure and stage 1 through stage 4 chronic kidney disease, or unspecified chronic kidney disease; N18.31 Chronic kidney disease, stage 3a; E11.22 Type 2 diabetes mellitus with diabetic chronic kidney disease; Z79.4 Long term (current) use of insulin; Z79.899 Other long term (current) drug therapy; Z98.890 Other specified postprocedural states
CPT/HCPCS: 36415; 80048; 81001; 82947; 83735; 84484; 85027; 93005; 96374; 99285-25; A9270-GY; G0378; J1940; J7030

== ENCOUNTER 2021-06-10 17:24 | Emergency (ER) | payer MEDICARE, OTHER ==
[2021-06-10] MEDS ORDERED: Sodium Chloride 0.9% 10 ML Syringe FLUSH PRN (17:58)
--- NOTE | 2021-06-10 18:18 | EDM.PDOC ---
ED HPI GENERAL MEDICAL PROBLEM - General Chief Complaint: Chest Pain Stated Complaint: CHEST PAIN Time Seen by Provider: 06/10/21 17:58 Source of Information: Reports: Patient, Old Records History Limitations: Reports: No Limitations - History of Present Illness INITIAL COMMENTS - FREE TEXT/NARRATIVE: Eulogio is a 81-year-old male presenting to the ED for evaluation of recurrent and increasingly frequent chest pains across his left upper chest that started yesterday. The pains are brief lasting about a minute or 2 and the patient describes them as sharp, stabbing, fleeting pains. They are not associated with any particular activity. They do not worsen with breathing or movement. They do not improve with any specific activity including rest. The patient has not taken any of his nitroglycerin. Patient has a history significant for coronary artery disease and recently underwent a transcatheter aortic valve replacement several weeks ago for severe aortic stenosis. Last week the patient was in cardiac rehab when he developed significant tachycardia and was seen in the ED and found to be in A. fib with a rapid ventricular response. Patient denies any shortness of breath, nausea or vomiting, diaphoresis, abdominal or back pain, lightheadedness or dizziness. He has had no urinary symptoms. Denies any fever, chills, cough or shortness of breath. - Related Data Allergies Allergy/AdvReac Type Severity Reaction Status Date / Time No Known Allergies Allergy Verified 06/10/21 17:38 Home Meds: Home Meds Insulin Aspart [NovoLOG] 3 units SUBCUT TID PRN 02/07/14 [History] atorvaSTATin Calcium [Atorvastatin Calcium] 40 mg PO DAILY 02/07/14 [History] metFORMIN [Glucophage] 500 mg PO BID 02/07/14 [History] Aspirin [Adult Low Dose Aspirin EC] 81 mg PO DAILY 05/26/14 [History] Ergocalciferol (Vitamin D2) [Vitamin D2] 1 cap PO ASDIRECTED 05/26/14 [History] Cholecalciferol (Vitamin D3) [Vitamin D3] 1,000 units PO DAILY 04/13/19 [History] Insulin Degludec [Tresiba Flextouch U-200] 44 units SUBCUT BEDTIME 04/13/19 [History] Liraglutide [Victoza] 1.2 mg SUBCUT DAILY 04/13/19 [History] Multivitamin [Multiple Vitamins] 1 tab PO DAILY 04/13/19 [History] Omeprazole 40 mg PO DAILY 04/13/19 [History] Tamsulosin [Flomax] 0.4 mg PO DAILY 04/13/19 [History] Citalopram Hydrobromide [Celexa] 40 mg PO DAILY 07/25/19 [History] Furosemide 40 mg PO DAILY 07/25/19 [History] Acetaminophen [Tylenol Extra Strength] 500 mg PO Q4HR PRN 08/25/20 [History] Ammonium Lactate [Amlactin 12% Lotion] 1 applic TOP DAILY 08/25/20 [History] Triamcinolone Acetonide [Kenalog 0.1% Crm] 1 applic TOP ASDIRECTED PRN 08/25/20 [History] Clopidogrel [Plavix] 75 mg PO DAILY 06/02/21 [History] Gabapentin [Neurontin] 300 mg PO BID 06/02/21 [History] Gabapentin [Neurontin] 600 mg PO BEDTIME 06/02/21 [History] Losartan [Cozaar] 12.5 mg PO DAILY 06/02/21 [History] Magnesium Chloride [Mag-64] 64 mg PO BID 06/02/21 [History] Melatonin 5 mg PO BEDTIME 06/02/21 [History] Metoprolol Succinate 25 mg PO DAILY 06/02/21 [History] Mirabegron [Myrbetriq] 50 mg PO DAILY 06/02/21 [History] Potassium Chloride 20 meq PO DAILY 06/02/21 [History] Past Medical History HEENT History: Reports: Cataract, Impaired Vision Cardiovascular History: Reports: Arrhythmia, Blood Clots/VTE/DVT, CAD, Heart Murmur, High Cholesterol, Hypertension, RI, SOB on Exertion, Stents Respiratory History: Reports: Other (See Below) Other Respiratory History: ANDREWS LUNG Gastrointestinal History: Reports: GERD Genitourinary History: Reports: Urinary Incontinence Musculoskeletal History: Reports: Arthritis, Back Pain, Chronic Neurological History: Reports: Neuropathy, Diabetic, Vertigo Psychiatric History: Reports: Depression Endocrine/Metabolic History: Reports: Diabetes, Type II, IDDM Oncologic (Cancer) History: Reports: Malignant Melanoma, Prostate Dermatologic History: Reports: Melanoma, Other (See Below) Other Dermatologic History: DRY SKIN - Infectious Disease History Infectious Disease History: Reports: Chicken Pox, Measles, Mumps - Past Surgical History Head Surgeries/Procedures: Reports: None HEENT Surgical History: Reports: Adenoidectomy, Cataract Surgery, Eye Surgery, Tonsillectomy Cardiovascular Surgical History: Reports: Coronary Artery Stent Respiratory Surgical History: Reports: None GI Surgical History: Reports: Cholecystectomy, Colonoscopy, EGD, Hernia, Abdominal Male Surgical History: Reports: TURP-Transurethral Resection of Prostate, Other (See Below) Other Male Surgeries/Procedures: bladder repair Endocrine Surgical History: Reports: None Neurological Surgical History: Reports: Discectomy, Laminectomy, Lumbar Spine Musculoskeletal Surgical History: Reports: Arthroscopic Knee, Other (See Below) Other Musculoskeletal Surgeries/Procedures:: partial knee replacements, neck surg twice, back surg 3 times Oncologic Surgical History: Reports: None Dermatological Surgical History: Reports: Skin Biopsy Social & Family History - Family History Family Medical History: No Pertinent Family History - Tobacco Use Tobacco Use Status *Q: Never Tobacco User - Caffeine Use Caffeine Use: Reports: Coffee Other Caffeine Use: 3-4 cups daily Caffeine Use Comment: several cups to a pot a day ED ROS GENERAL - Review of Systems Review Of Systems: See Below Constitutional: Reports: No Symptoms HEENT: Reports: No Symptoms Respiratory: Reports: No Symptoms Cardiovascular: Reports: Chest Pain (Sharp, stabbing and brief.) Endocrine: Reports: No Symptoms GI/Abdominal: Reports: No Symptoms : Reports: No Symptoms Musculoskeletal: Reports: No Symptoms Skin: Reports: No Symptoms Neurological: Reports: No Symptoms Psychiatric: Reports: No Symptoms Hematologic/Lymphatic: Reports: No Symptoms Immunologic: Reports: No Symptoms ED EXAM, GENERAL - Physical Exam Exam: See Below Exam Limited By: No Limitations General Appearance: Alert, No Apparent Distress Throat/Mouth: Normal Inspection, Normal Oropharynx, Normal Voice, No Airway Compromise Head: Atraumatic, Normocephalic Neck: Normal Inspection, Supple, Non-Tender, Full Range of Motion Respiratory/Chest: No Respiratory Distress, Lungs Clear, No Accessory Muscle Use, Rales (bibasalar) Cardiovascular: Normal Peripheral Pulses, Regular Rate, Rhythm, No Murmur Peripheral Pulses: 2+: Radial (L), Radial (R), Posterior Tibial (L), Posterior Tibial (R) GI/Abdominal: Normal Bowel Sounds, Soft, Non-Tender Back Exam: Normal Inspection Extremities: Normal Inspection, Pedal Edema (1+ edema) Neurological: Alert, Oriented, Normal Cognition, No Motor/Sensory Deficits Psychiatric: Normal Affect, Normal Mood Skin Exam: Warm, Dry #1 Interpretation EKG Date: 06/10/21 Time: 18:01 Rhythm: NSR (With ventricular bigeminy at times.) Rate (Beats/Min): 75 [place]: Normal P-Wave: Present QRS: Wide (Ventricular conduction delay) ST-T: Other (Nonspecific ST-T changes) QT: Prolonged Comparison: No Change Course - Vital Signs Last Recorded V/S: Last Vital Signs Temp 36.4 C 06/10/21 17:46 Pulse 70 06/10/21 19:07 Resp 16 06/10/21 19:07 BP 151/75 H 06/10/21 19:07 Pulse Ox 97 06/10/21 19:07 - Orders/Labs/Meds Orders: Active Orders 24 hr Category Date Time Status EKG Documentation Completion [RC] ASDIRECTED Care 06/10/21 17:59 Active Chest 2V [CR] Stat Exams 06/10/21 17:58 Taken Sodium Chloride 0.9% [Saline Flush] Med 06/10/21 17:58 Active 10 ml FLUSH ASDIRECTED PRN Saline Lock Insert [OM.PC] Routine Oth 06/10/21 17:58 Ordered EKG 12 Lead [EK] Routine Ther 06/10/21 17:58 Ordered Medication Orders Sodium Chloride (Sodium Chloride 0.9% 10 Ml Syringe) 10 ml FLUSH ASDIRECTED PRN PRN Reason: Keep Vein Open Labs: Laboratory Tests 06/10/21 06/10/21 Range/Units 18:18 18:18 WBC 6.6 (4.5-11.0) K/uL RBC 4.19 L (4.30-5.90) M/uL Hgb 10.9 L (12.0-15.0) g/dL Hct 34.4 L (40.0-54.0) % MCV 82 (80-98) fL MCH 26 L (27-31) pg MCHC 32 (32-36) % Plt Count 221 (150-400) K/uL Neut % (Auto) 59.1 (36-66) % Lymph % (Auto) 30.3 (24-44) % [place] % (Auto) 8.7 H (2-6) % Eos % (Auto) 1.4 L (2-4) % Baso % (Auto) 0.5 (0-1) % Sodium 136 L (140-148) mmol/L Potassium 4.9 (3.6-5.2) mmol/L Chloride 99 L (100-108) mmol/L Carbon Dioxide 30 (21-32) mmol/L Anion Gap 11.9 (5.0-14.0) mmol/L BUN 25 H (7-18) mg/dL Creatinine 1.5 H (0.8-1.3) mg/dL Est Cr Clr Drug Dosing 36.04 mL/min Estimated GFR (MDRD) 45 L (>60) Glucose 148 H (74-106) mg/dL Calcium 8.5 (8.5-10.1) mg/dL Total Bilirubin 0.3 (0.2-1.0) mg/dL AST 13 L (15-37) U/L ALT 18 (12-78) U/L Alkaline Phosphatase 107 (46-116) U/L Troponin I < 0.017 (0.000-0.056) ng/mL NT-Pro-B Natriuret Pep 1070 H (5-450) pg/mL Total Protein 6.9 (6.4-8.2) g/dL Albumin 3.2 L (3.4-5.0) g/dL Globulin 3.7 H (2.3-3.5) g/dL Albumin/Globulin Ratio 0.9 L (1.2-2.2) Meds: Medications Generic Name Dose Route Start Last Admin Trade Name Freq PRN Reason Stop Dose Admin Sodium Chloride 10 ml 06/10/21 17:58 Sodium Chloride 0.9% 10 Ml Syringe FLUSH ASDIRECTED PRN Keep Vein Open - Radiology Interpretation Free Text/Narrative:: I reviewed the chest x-ray 2 view showing mild to moderate pulmonary edema and some mild cardiomegaly. There is no pleural effusions. There is no infiltrates . - Re-Assessments/Exams Free Text/Narrative Re-Assessment/Exam: 06/10/21 19:39 reviewed the patient's labs showing a CBC with a hemoglobin of 10.9, hematocrit of 34.4, leukocyte count of 6.6, and a platelet count of 221,000. The comprehensive metabolic panel shows a sodium of 136 with a potassium 4.9, chloride of 99 with a bicarbonate of 30, and a BUN of 25 with a creatinine 1.5. Glucose is 148 and calcium is 85. Patient's troponin is negative at less than 0.017. His proBNP is elevated at 1070 which is consistent with his pulmonary edema seen on his two-view chest x-ray. It is likely that the pain in his chest is musculoskeletal in nature. I reassured him that they do not believe that this is cardiac and he may take Tylenol for relief. I do think he should increase his Lasix to twice his dose for the next 2 to 3 days to get the extra fluid off. I believe he is suitable for discharge home at this time. Indications to return to the ED were discussed. Departure - Departure Time of Disposition: 19:40 Disposition: Home, Self-Care 01 Clinical Impression: Atypical chest pain, Pulmonary edema with congestive heart failure CHF (congestive heart failure) Qualifiers: Heart failure type: unspecified Heart failure chronicity: acute on chronic Qualified Code(s): I50.9 - Heart failure, unspecified CKD (chronic kidney disease) stage 3, GFR 30-59 ml/min Qualifiers: Chronic kidney disease stage 3 subtype: stage 3a (GFR 45-59) Qualified Code(s): N18.31 - Chronic kidney disease, stage 3a Type 2 diabetes mellitus Qualifiers: Diabetes mellitus mcfp insulin use: with terminal operations supervisor use Diabetes mellitus complication status: with other specified complication Qualified Code(s): E11.69 - Type 2 diabetes mellitus with other specified complication Instructions: Nonspecific Chest Pain, Adult, [id number], Heart Failure Exacerbation Referrals: Anthony Coon MD [Primary Care Provider] - Forms: ED Department Discharge Care Plan Goals: Your work-up today has shown that your heart is doing fine except that you are a little bit in failure with fluid accumulating in the lungs. I like you to increase your Lasix to a double dose (80 mg a day for the next 3 days) to help get extra fluid off the lungs. The pain that you are experiencing in your chest is more likely due to muscular skeletal irritation. You may take Tylenol for this. Although it is painful is not worrisome. Follow-up with your primary care provider next week for recheck of your heart failure. Sepsis Event Note (ED) - Evaluation Sepsis Screening Result: No Definite Risk - Focused Exam Vital Signs: Vital Signs Temp Pulse Resp BP Pulse Ox 06/10/21 19:07 70 16 151/75 H 97 06/10/21 17:46 36.4 C 82 16 158/75 H 97 06/10/21 17:38 36.4 C 82 16 158/75 H 97 - Problem List & Annotations (1) S/P TAVR (transcatheter aortic valve replacement) SNOMED Code(s): 5938047041981, 030208998, [id number], [id number] Code(s): Z95.2 - PRESENCE OF PROSTHETIC HEART VALVE Status: Chronic Current Visit: No (2) Type 2 diabetes mellitus SNOMED Code(s): 05036371 Code(s): E11.9 - TYPE 2 DIABETES MELLITUS WITHOUT COMPLICATIONS Status: Chronic Current Visit: No Qualifiers: Diabetes mellitus terminal operations supervisor insulin use: with mcfp use Diabetes mellitus complication status: with other specified complication Qualified Code(s): E11.69 - Type 2 diabetes mellitus with other specified complication; Z79.4 - skilled nursing (current) use of insulin (3) CKD (chronic kidney disease) stage 3, GFR 30-59 ml/min SNOMED Code(s): 570201544 Code(s): N18.30 - CHRONIC KIDNEY DISEASE, STAGE 3 UNSPECIFIED Status: Chronic Priority: Medium Current Visit: Yes Qualifiers: Chronic kidney disease stage 3 subtype: stage 3a (GFR 45-59) Qualified Code(s): N18.31 - Chronic kidney disease, stage 3a (4) Atypical chest pain SNOMED Code(s): 473420155 Code(s): R07.89 - OTHER CHEST PAIN Status: Acute Priority: High Current Visit: Yes (5) CHF (congestive heart failure) SNOMED Code(s): 57710529 Code(s): I50.9 - HEART FAILURE, UNSPECIFIED Status: Acute Priority: High Current Visit: Yes Qualifiers: Heart failure type: unspecified Heart failure chronicity: acute on chronic Qualified Code(s): I50.9 - Heart failure, unspecified (6) Pulmonary edema with congestive heart failure SNOMED Code(s): 90176957, 56103362 Code(s): I50.1 - LEFT VENTRICULAR FAILURE, UNSPECIFIED Status: Acute Priority: High Current Visit: Yes - Problem List Review Problem List Initiated/Reviewed/Updated: Yes - My Orders Last 24 Hours: My Active Orders 06/10/21 17:58 Chest 2V [CR] Stat Sodium Chloride 0.9% [Saline Flush] 10 ml FLUSH ASDIRECTED PRN Saline Lock Insert [OM.PC] Routine EKG 12 Lead [EK] Routine 06/10/21 17:59 EKG Documentation Completion [RC] ASDIRECTED - Assessment/Plan Last 24 Hours: My Active Orders 06/10/21 17:58 Chest 2V [CR] Stat Sodium Chloride 0.9% [Saline Flush] 10 ml FLUSH ASDIRECTED PRN Saline Lock Insert [OM.PC] Routine EKG 12 Lead [EK] Routine 06/10/21 17:59 EKG Documentation Completion [RC] ASDIRECTED
--- NOTE | 2021-06-12 09:36 | CR ---
CHEST: 2 view CLINICAL HISTORY:Chest pain COMPARISON:2020 FINDINGS: The heart size, pulmonary vascularity and hilar structures are normal. No infiltrate effusion or pneumothorax is seen. There are atherosclerotic changes in the aorta. IMPRESSION: No acute cardiopulmonary process.
== END 2021-06-10 20:24 | disposition home or self-care (01) ==
LOC: JP.ED 17:24
DX: I13.0 Hypertensive heart and chronic kidney disease with heart failure and stage 1 through stage 4 chronic kidney disease, or unspecified chronic kidney disease (principal); E11.22 Type 2 diabetes mellitus with diabetic chronic kidney disease; N18.31 Chronic kidney disease, stage 3a; I50.9 Heart failure, unspecified; I25.10 Atherosclerotic heart disease of native coronary artery without angina pectoris; E78.00 Pure hypercholesterolemia, unspecified; I25.2 Old myocardial infarction; K21.9 Gastro-esophageal reflux disease without esophagitis; M19.90 Unspecified osteoarthritis, unspecified site; E11.40 Type 2 diabetes mellitus with diabetic neuropathy, unspecified; Z79.4 Long term (current) use of insulin; Z79.82 Long term (current) use of aspirin; Z79.899 Other long term (current) drug therapy
CPT/HCPCS: 36415; 71046; 71046-26; 80053; 83880; 84484; 85025; 93005; 99285-25

== ENCOUNTER 2021-07-23 19:18 | Emergency (ER) | payer MEDICARE, OTHER ==
[2021-07-23] MEDS ORDERED: Acetaminophen/HYDROcodone 325-5 MG Tab PO ONE ×2 (20:38→22:32)
[2021-07-23] MEDS ORDERED: Methocarbamol 500 MG Tab PO ONE ×3 (20:38→22:31)
--- NOTE | 2021-07-23 20:42 | EDM.PDOC ---
ED HPI GENERAL MEDICAL PROBLEM - General Chief Complaint: Neck Problem Stated Complaint: SPASM IN NECK Time Seen by Provider: 07/23/21 20:39 Source of Information: Reports: Patient, Family ( at bedside) History Limitations: Reports: No Limitations - History of Present Illness INITIAL COMMENTS - FREE TEXT/NARRATIVE: Eulogio Grace" is a 81 year old male with abrupt onset of right sided neck spasms with decreased ROM and pain. Eulogio denies fall or injury which caused pain. Dayo has a had local injection in the past for muscle spasms and pain which helped and a muscle relaxant but does not know which medication. Dayo has take Tylenol without improvement of pain today. Dayo is on Aspirin and Plavix therefore can not take NSAIDs. right sided neck pain Pain Score (Numeric/FACES): 5 - Related Data Allergies Allergy/AdvReac Type Severity Reaction Status Date / Time No Known Allergies Allergy Verified 07/23/21 20:13 Home Meds: Home Meds Insulin Aspart [NovoLOG] 3 units SUBCUT TID PRN 02/07/14 [History] atorvaSTATin Calcium [Atorvastatin Calcium] 40 mg PO DAILY 02/07/14 [History] metFORMIN [Glucophage] 500 mg PO BID 02/07/14 [History] Aspirin [Adult Low Dose Aspirin EC] 81 mg PO DAILY 05/26/14 [History] Ergocalciferol (Vitamin D2) [Vitamin D2] 1 cap PO ASDIRECTED 05/26/14 [History] Cholecalciferol (Vitamin D3) [Vitamin D3] 1,000 units PO DAILY 04/13/19 [History] Insulin Degludec [Tresiba Flextouch U-200] 44 units SUBCUT BEDTIME 04/13/19 [History] Liraglutide [Victoza] 1.2 mg SUBCUT DAILY 04/13/19 [History] Multivitamin [Multiple Vitamins] 1 tab PO DAILY 04/13/19 [History] Omeprazole 40 mg PO DAILY 04/13/19 [History] Tamsulosin [Flomax] 0.4 mg PO DAILY 04/13/19 [History] Citalopram Hydrobromide [Celexa] 40 mg PO DAILY 07/25/19 [History] Furosemide 40 mg PO DAILY 07/25/19 [History] Acetaminophen [Tylenol Extra Strength] 500 mg PO Q4HR PRN 08/25/20 [History] Ammonium Lactate [Amlactin 12% Lotion] 1 applic TOP DAILY 08/25/20 [History] Triamcinolone Acetonide [Kenalog 0.1% Crm] 1 applic TOP ASDIRECTED PRN 08/25/20 [History] Clopidogrel [Plavix] 75 mg PO DAILY 06/02/21 [History] Gabapentin [Neurontin] 300 mg PO BID 06/02/21 [History] Gabapentin [Neurontin] 600 mg PO BEDTIME 06/02/21 [History] Losartan [Cozaar] 12.5 mg PO DAILY 06/02/21 [History] Magnesium Chloride [Mag-64] 64 mg PO BID 06/02/21 [History] Melatonin 5 mg PO BEDTIME 06/02/21 [History] Metoprolol Succinate 25 mg PO DAILY 06/02/21 [History] Mirabegron [Myrbetriq] 50 mg PO DAILY 06/02/21 [History] Potassium Chloride 20 meq PO DAILY 06/02/21 [History] Acetaminophen/HYDROcodone [[place]e 325-5 MG] 1 - 2 tab PO Q6H PRN 2 Days #10 tab 07/23/21 [Rx] methocarbamoL [Methocarbamol] 500 mg PO Q8H PRN 10 Days #30 tablet 07/23/21 [Rx] Past Medical History HEENT History: Reports: Cataract, Impaired Vision Cardiovascular History: Reports: Arrhythmia, Blood Clots/VTE/DVT, CAD, Heart Murmur, High Cholesterol, Hypertension, SD, SOB on Exertion, Stents Respiratory History: Reports: Other (See Below) Other Respiratory History: ANDREWS LUNG Gastrointestinal History: Reports: GERD Genitourinary History: Reports: Urinary Incontinence Musculoskeletal History: Reports: Arthritis, Back Pain, Chronic Neurological History: Reports: Neuropathy, Diabetic, Vertigo Psychiatric History: Reports: Depression Endocrine/Metabolic History: Reports: Diabetes, Type II, IDDM Oncologic (Cancer) History: Reports: Malignant Melanoma, Prostate Dermatologic History: Reports: Melanoma, Other (See Below) Other Dermatologic History: DRY SKIN - Infectious Disease History Infectious Disease History: Reports: Chicken Pox, Measles, Mumps - Past Surgical History Head Surgeries/Procedures: Reports: None HEENT Surgical History: Reports: Adenoidectomy, Cataract Surgery, Eye Surgery, Tonsillectomy Cardiovascular Surgical History: Reports: Coronary Artery Stent Respiratory Surgical History: Reports: None GI Surgical History: Reports: Cholecystectomy, Colonoscopy, EGD, Hernia, Abdominal Male Surgical History: Reports: TURP-Transurethral Resection of Prostate, Other (See Below) Other Male Surgeries/Procedures: bladder repair Endocrine Surgical History: Reports: None Neurological Surgical History: Reports: Discectomy, Laminectomy, Lumbar Spine Musculoskeletal Surgical History: Reports: Arthroscopic Knee, Other (See Below) Other Musculoskeletal Surgeries/Procedures:: partial knee replacements, neck surg twice, back surg 3 times Oncologic Surgical History: Reports: None Dermatological Surgical History: Reports: Skin Biopsy Social & Family History - Family History Family Medical History: No Pertinent Family History - Tobacco Use Tobacco Use Status *Q: Never Tobacco User - Caffeine Use Caffeine Use: Reports: Coffee Other Caffeine Use: 3-4 cups daily Caffeine Use Comment: several cups to a pot a day - Recreational Drug Use Recreational Drug Use: No ED ROS GENERAL - Review of Systems Review Of Systems: Comprehensive ROS is negative, except as noted in HPI. ED EXAM, UPPER BACK/NECK PAIN - Physical Exam Exam: See Below Exam Limited By: No Limitations General Appearance: Alert, WD/WN, Moderate Distress (due to right sided neck pain) Eye Exam: Bilateral Eye: Normal Inspection Ears Exam: Hearing Grossly Normal Nose Exam: Normal Inspection Throat/Mouth Exam: Normal Inspection, Normal Voice, No Airway Compromise, Tonsillar Swelling Neck Exam: Limited Range of Motion, Muscle Spasm (right lateral trapezius ) Cardiovascular/Respiratory: Normal Peripheral Pulses, Normal Breath Sounds, No Respiratory Distress GI/Abdominal: Soft, Non-Tender Extremities: Normal Inspection, Normal Range of Motion, Non-Tender Neurologic: No Motor/Sensory Deficits, Alert, Normal Mood/Affect, Oriented x 3 Psychiatric: Normal Affect, Normal Mood Skin Exam: Normal Color, Warm/Dry ED LACERATION/WOUND PROCEDURES - Additional/Other Procedure(s) Other (Free Text) Procedure(s): ER PROCEDURE: Myofascial Injections Written and/or Verbal consent obtain to precede with Myofascial injections. Witnessed by: [nursing staff/family/friend] Risks, benefits, complications and alternatives (including doing nothing) regarding this procedure were discussed. Patient understood these, voiced understanding, and wished to proceed. Time out completed to ensure correct procedure on the correct patient and correct site. PRE-PROCEDURE DIAGNOSIS: Right trapezius muscle spasms, neck ecreased ROM and pain. POST-PROCEDURE DIAGNOSIS: Same PROCEDURE PERFORMED: Myofascial Injections x 4-5 Location: Right lateral trapezius ANESTHESIA: Local, 6 cc Lidocaine 1% with epi. 0.5 cc 1 cc in each location. INDICATIONS: 81 year old male with significant limitations due to right lateral neck and trapezius myospasms. PROCEDURE: Myofascial Injections. This was done under aseptic technique after area was prepped with Alcohol after points of maximal tenderness located along the bilateral spine and along the muscle treated area x 15-20 then warm/ice compress applied to treated area x 15 minutes. Patient has some discomfort at site of injections. Patient had moderate improvement of pain and improved ROM after injections. ESTIMATED BLOOD LOSS: Minimal/None. COMPLICATIONS: None. SPECIMENS: None. Course - Vital Signs Last Recorded V/S: Last Vital Signs Temp 36.3 C 07/23/21 20:19 Pulse 78 07/23/21 20:19 Resp 16 07/23/21 20:19 BP 164/74 H 07/23/21 20:19 Pulse Ox 99 07/23/21 20:19 - Orders/Labs/Meds Orders: Active Orders 24 hr Category Date Time Status Acetaminophen/HYDROcodone [L[place]e 325-5 MG] Med 07/23/21 22:32 Once 1 tab PO ONETIME ONE Meds: Medications Discontinued Medications Generic Name Dose Route Start Last Admin Trade Name Mike PRN Reason Stop Dose Admin Hydrocodone Bitart/Acetaminophen 1 tab 07/23/21 20:38 07/23/21 21:17 Acetaminophen/Hydrocodone 325-5 Mg Tab PO 07/23/21 20:39 1 tab ONETIME ONE Administration Lidocaine 700 mg 07/23/21 22:31 Lidocaine 5% 700 Mg Patch TOP 07/23/21 22:32 ONETIME ONE Lidocaine HCl 5 ml 07/23/21 20:38 07/23/21 21:17 Lidocaine 1% 5 Ml Sdv INJECT 07/23/21 20:39 5 ml ONETIME ONE Administration Methocarbamol 1,000 mg 07/23/21 20:38 07/23/21 21:11 Methocarbamol 500 Mg Tab PO 07/23/21 20:39 Not Given ONETIME ONE Methocarbamol 500 mg 07/23/21 20:41 07/23/21 21:17 Methocarbamol 500 Mg Tab PO 07/23/21 20:42 500 mg ONETIME ONE Administration Methocarbamol 500 mg 07/23/21 22:31 Methocarbamol 500 Mg Tab PO 07/23/21 22:32 ONETIME ONE - Re-Assessments/Exams Free Text/Narrative Re-Assessment/Exam: Myofascial injections placed and warm compress placed. Oral methocarbamol 500mg and [place] 5/325mg given for pain concerns. Dayo reports minimal improvement of symptoms, warm compress was repeated and offered repeat oral mediation dosing which he accepted. repeat Methocarbamol 500mg and norco given. Discharge and PT recommendations completed. 07/23/21 22:32 Departure - Departure Time of Disposition: 23:00 Disposition: Home, Self-Care 01 Clinical Impression: Trapezius muscle strain, Muscle spasms of neck - Discharge Information Prescriptions: Acetaminophen/HYDROcodone [[place] 325-5 MG] 1 - 2 tab PO Q6H PRN 2 Days #10 tab PRN Reason: Pain (Severe 7-10) methocarbamoL [Methocarbamol] 500 mg PO Q8H PRN 10 Days #30 tablet PRN Reason: spasms Instructions: Muscle Cramps and Spasms, Muscle Strain Referrals: Anthony Coon MD [Primary Care Provider] - Forms: ED Department Discharge Additional Instructions: 1. Increase fluid intake. 2. Tylenol as needed for mild pain 500-1000mg with Max 3,000mg per 24 hrs. 3. Methocarbamol 500-1000mg every 8hrs (TID) for muscle spasms and pain, may cause fatigue. 4. [place]e (Hydrocodone 5mg/tylenol 325mg) 1 tablet every 6 hr as needed for severe pain #10. [employer]. 5. Referral placed to Physical Therapy for further evaluation and treatment for right neck, shoulder (trapezius) concerns. 6. Call PCP for recheck in the next 2-3 weeks for medication refill if continued pain or additional treatment options. Sepsis Event Note (ED) - Evaluation Sepsis Screening Result: No Definite Risk - Focused Exam Vital Signs: Vital Signs Temp Pulse Resp BP Pulse Ox 07/23/21 20:19 36.3 C 78 16 164/74 H 99 07/23/21 19:54 36.3 C 78 16 164/74 H 99 - My Orders Last 24 Hours: My Active Orders 07/23/21 22:32 Acetaminophen/HYDROcodone [L[place]e 325-5 MG] 1 tab PO ONETIME ONE - Assessment/Plan Last 24 Hours: My Active Orders 07/23/21 22:32 Acetaminophen/HYDROcodone [[place] 325-5 MG] 1 tab PO ONETIME ONE
[2021-07-23] MEDS ORDERED: Lidocaine 5% 700 MG Patch TOP ONE (22:31)
== END 2021-07-23 23:14 | disposition home or self-care (01) ==
LOC: JP.ED 19:18
DX: S46.911A Strain of unspecified muscle, fascia and tendon at shoulder and upper arm level, right arm, initial encounter (principal); M62.838 Other muscle spasm; I25.10 Atherosclerotic heart disease of native coronary artery without angina pectoris; I10 Essential (primary) hypertension; I25.2 Old myocardial infarction; K21.9 Gastro-esophageal reflux disease without esophagitis; M19.90 Unspecified osteoarthritis, unspecified site; E11.40 Type 2 diabetes mellitus with diabetic neuropathy, unspecified; Z79.82 Long term (current) use of aspirin; Z79.4 Long term (current) use of insulin; Z79.02 Long term (current) use of antithrombotics/antiplatelets; Z79.899 Other long term (current) drug therapy; X58.XXXA Exposure to other specified factors, initial encounter
CPT/HCPCS: 20552; 99283; A9270

== ENCOUNTER 2021-09-24 19:18 | Inpatient (IN) | payer MEDICARE, OTHER ==
--- NOTE | 2021-09-24 19:52 | EDM.PDOC ---
ED HPI GENERAL MEDICAL PROBLEM - General Chief Complaint: General Stated Complaint: CHILLS,BLACK STOOLS, STOMACH PAIN Time Seen by Provider: 09/24/21 19:26 Source of Information: Reports: Patient, Family () History Limitations: Reports: No Limitations - History of Present Illness INITIAL COMMENTS - FREE TEXT/NARRATIVE: Eulogio is a 81-year-old male who presents to the ED with complaint of body aches, shortness of breath, chest heaviness, cough, nausea and vomiting, epigastric pain, and black tarry stools for the last 2 days. Patient has had fever and chills although he has not checked his temperature. Currently is 95.4 F. He has had the 2 initial COVID-19 vaccines and the booster shot. 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 He also has a history significant for artery disease, congestive heart failure, chronic kidney disease, type 2 diabetes, peripheral vascular disease, and hypertension. The reports that the patient has been using Pepto-Bismol for his upset stomach. Certainly this could be the source of his black stools although he is on aspirin and Plavix for his TAVR so an upper GI bleed certainly could be a possibility of in his epigastric discomfort. Epigastric Pain Score (Numeric/FACES): 5 - Related Data Allergies Allergy/AdvReac Type Severity Reaction Status Date / Time No Known Allergies Allergy Verified 07/23/21 20:13 Home Meds: Home Meds Insulin Aspart [NovoLOG] 3 units SUBCUT TID PRN 02/07/14 [History] atorvaSTATin Calcium [Atorvastatin Calcium] 40 mg PO DAILY 02/07/14 [History] metFORMIN [Glucophage] 500 mg PO BID 02/07/14 [History] Aspirin [Adult Low Dose Aspirin EC] 81 mg PO DAILY 05/26/14 [History] Ergocalciferol (Vitamin D2) [Vitamin D2] 1 cap PO ASDIRECTED 05/26/14 [History] Cholecalciferol (Vitamin D3) [Vitamin D3] 1,000 units PO DAILY 04/13/19 [History] Insulin Degludec [Tresiba Flextouch U-200] 44 units SUBCUT BEDTIME 04/13/19 [History] Liraglutide [Victoza] 1.2 mg SUBCUT DAILY 04/13/19 [History] Multivitamin [Multiple Vitamins] 1 tab PO DAILY 04/13/19 [History] Omeprazole 40 mg PO DAILY 04/13/19 [History] Citalopram Hydrobromide [Celexa] 40 mg PO DAILY 07/25/19 [History] Furosemide 40 mg PO DAILY 07/25/19 [History] Acetaminophen [Tylenol Extra Strength] 500 mg PO Q4HR PRN 08/25/20 [History] Ammonium Lactate [Amlactin 12% Lotion] 1 applic TOP DAILY 08/25/20 [History] Triamcinolone Acetonide [Kenalog 0.1% Crm] 1 applic TOP ASDIRECTED PRN 08/25/20 [History] Clopidogrel [Plavix] 75 mg PO DAILY 06/02/21 [History] Gabapentin [Neurontin] 300 mg PO BID 06/02/21 [History] Gabapentin [Neurontin] 600 mg PO BEDTIME 06/02/21 [History] Losartan [Cozaar] 12.5 mg PO DAILY 06/02/21 [History] Magnesium Chloride [Mag-64] 64 mg PO BID 06/02/21 [History] Melatonin 5 mg PO BEDTIME 06/02/21 [History] Metoprolol Succinate 25 mg PO BID 06/02/21 [History] Mirabegron [Myrbetriq] 50 mg PO DAILY 06/02/21 [History] Potassium Chloride 20 meq PO DAILY 06/02/21 [History] Acetaminophen/HYDROcodone [Century 325-5 MG] 1 - 2 tab PO Q6H PRN 2 Days #10 tab 07/23/21 [Rx] methocarbamoL [Methocarbamol] 500 mg PO Q8H PRN 10 Days #30 tablet 07/23/21 [Rx] Past Medical History HEENT History: Reports: Cataract, Impaired Vision Cardiovascular History: Reports: Arrhythmia, Blood Clots/VTE/DVT, CAD, Heart Murmur, High Cholesterol, Hypertension, GA, SOB on Exertion, Stents Respiratory History: Reports: Other (See Below) Other Respiratory History: ANDREWS LUNG Gastrointestinal History: Reports: GERD Genitourinary History: Reports: Urinary Incontinence Musculoskeletal History: Reports: Arthritis, Back Pain, Chronic Neurological History: Reports: Neuropathy, Diabetic, Vertigo Psychiatric History: Reports: Depression Endocrine/Metabolic History: Reports: Diabetes, Type II, IDDM Oncologic (Cancer) History: Reports: Malignant Melanoma, Prostate Dermatologic History: Reports: Melanoma, Other (See Below) Other Dermatologic History: DRY SKIN - Infectious Disease History Infectious Disease History: Reports: Chicken Pox, Measles, Mumps - Past Surgical History Head Surgeries/Procedures: Reports: None HEENT Surgical History: Reports: Adenoidectomy, Cataract Surgery, Eye Surgery, Tonsillectomy Cardiovascular Surgical History: Reports: Coronary Artery Stent Respiratory Surgical History: Reports: None GI Surgical History: Reports: Cholecystectomy, Colonoscopy, EGD, Hernia, Abdominal Male Surgical History: Reports: TURP-Transurethral Resection of Prostate, Other (See Below) Other Male Surgeries/Procedures: bladder repair Endocrine Surgical History: Reports: None Neurological Surgical History: Reports: Discectomy, Laminectomy, Lumbar Spine Musculoskeletal Surgical History: Reports: Arthroscopic Knee, Other (See Below) Other Musculoskeletal Surgeries/Procedures:: partial knee replacements, neck surg twice, back surg 3 times Oncologic Surgical History: Reports: None Dermatological Surgical History: Reports: Skin Biopsy Social & Family History - Family History Family Medical History: No Pertinent Family History - Tobacco Use Tobacco Use Status *Q: Never Tobacco User - Caffeine Use Caffeine Use: Reports: Coffee Other Caffeine Use: 3-4 cups daily Caffeine Use Comment: several cups to a pot a day ED ROS GENERAL - Review of Systems Review Of Systems: See Below Constitutional: Reports: No Symptoms, Fever, Chills, Malaise, Decreased Appetite HEENT: Reports: No Symptoms Respiratory: Reports: Shortness of Breath, Cough Cardiovascular: Reports: No Symptoms Endocrine: Reports: Fatigue GI/Abdominal: Reports: Abdominal Pain (Predominantly epigastric but has generalized abdominal pain as well), Diarrhea, Decreased Appetite, Melena (Black tarry stools), Nausea, Vomiting : Reports: No Symptoms Musculoskeletal: Reports: Muscle Pain (Neurolyse body aches. Patient states he feels like he was shot all over.) Skin: Reports: No Symptoms Neurological: Reports: Headache Psychiatric: Reports: No Symptoms Hematologic/Lymphatic: Reports: No Symptoms Immunologic: Reports: No Symptoms ED EXAM, GENERAL - Physical Exam Exam: See Below Exam Limited By: No Limitations General Appearance: Alert, Anxious, Mild Distress Eye Exam: Bilateral Eye: EOMI, PERRL Throat/Mouth: Normal Oropharynx, Normal Voice, No Airway Compromise Head: Atraumatic, Normocephalic Neck: Normal Inspection, Supple. No: Lymphadenopathy (R), Lymphadenopathy (L) Respiratory/Chest: No Respiratory Distress, Lungs Clear, Normal Breath Sounds Cardiovascular: Normal Peripheral Pulses, Regular Rate, Rhythm, No Murmur Peripheral Pulses: 2+: Radial (L), Radial (R) GI/Abdominal: Soft, Distended (Mild distention), Guarding (Epigastric), Tender (Moderate tenderness over the epigastric region. Mild tenderness throughout the abdomen), Abnormal Bowel Sounds (Minutes bowel sounds). No: Rigid, Rebound Rectal (Males) Exam: Normal Exam, Normal Rectal Tone, Heme + Stool Extremities: Normal Inspection, No Pedal Edema Neurological: Alert, Oriented, Normal Cognition, No Motor/Sensory Deficits Psychiatric: Normal Affect, Anxious Skin Exam: Warm, Dry, Pallor Course - Vital Signs Last Recorded V/S: Last Vital Signs Temp 35.4 C L 09/24/21 19:33 Pulse 50 L 09/24/21 19:33 Resp 18 09/24/21 19:33 BP 172/58 H 09/24/21 19:33 Pulse Ox 99 09/24/21 19:33 - Orders/Labs/Meds Orders: Active Orders 24 hr Category Date Time Status PATIENT RETYPE [BBK] Stat Lab 09/24/21 19:45 Results TYPE AND SCREEN [BBK] Stat Lab 09/24/21 19:45 Results Pantoprazole [ProTONIX IV] 80 mg Med 09/24/21 21:15 Active Sodium Chloride 0.9% [Normal Saline] 100 ml IV .BOLUS Medication Orders Pantoprazole Sodium 80 mg/ (Sodium Chloride) 100 mls @ 200 mls/hr IV .BOLUS GEM Last Admin: 09/24/21 21:24 Dose: 200 mls/hr Documented by: JIAN Labs: Laboratory Tests 09/24/21 09/24/21 09/24/21 Range/Units 19:45 19:45 19:49 WBC 9.1 (4.5-11.0) K/uL RBC 5.02 (4.30-5.90) M/uL Hgb 12.9 D (12.0-15.0) g/dL Hct 39.6 L (40.0-54.0) % MCV 79 L (80-98) fL MCH 26 L (27-31) pg MCHC 33 (32-36) % Plt Count 248 (150-400) K/uL Neut % (Auto) 72.8 H (36-66) % Lymph % (Auto) 17.9 L (24-44) % Reynolds % (Auto) 8.5 H (2-6) % Eos % (Auto) 0.5 L (2-4) % Baso % (Auto) 0.3 (0-1) % PT (9.2-10.6) sec INR APTT (21.4-31.8) sec Sodium (140-148) mmol/L Potassium (3.6-5.2) mmol/L Chloride (100-108) mmol/L Carbon Dioxide (21-32) mmol/L Anion Gap (5.0-14.0) mmol/L BUN (7-18) mg/dL Creatinine (0.8-1.3) mg/dL Est Cr Clr Drug Dosing mL/min Estimated GFR (MDRD) (>60) Glucose (74-106) mg/dL Calcium (8.5-10.1) mg/dL Total Bilirubin (0.2-1.0) mg/dL AST (15-37) U/L ALT (12-78) U/L Alkaline Phosphatase (46-116) U/L Total Protein (6.4-8.2) g/dL Albumin (3.4-5.0) g/dL Globulin (2.3-3.5) g/dL Albumin/Globulin Ratio (1.2-2.2) SARS-CoV-2 RNA (GEETA) Negative (NEGATIVE) Blood Type A POSITIVE Gel Antibody Screen Negative 09/24/21 09/24/21 Range/Units 20:02 20:02 WBC (4.5-11.0) K/uL RBC (4.30-5.90) M/uL Hgb (12.0-15.0) g/dL Hct (40.0-54.0) % MCV (80-98) fL MCH (27-31) pg MCHC (32-36) % Plt Count (150-400) K/uL Neut % (Auto) (36-66) % Lymph % (Auto) (24-44) % Reynolds % (Auto) (2-6) % Eos % (Auto) (2-4) % Baso % (Auto) (0-1) % PT 12.1 H (9.2-10.6) sec INR 1.2 APTT 24.5 (21.4-31.8) sec Sodium 135 L (140-148) mmol/L Potassium 3.6 (3.6-5.2) mmol/L Chloride 97 L (100-108) mmol/L Carbon Dioxide 26 (21-32) mmol/L Anion Gap 15.6 H (5.0-14.0) mmol/L BUN 30 H (7-18) mg/dL Creatinine 1.7 H (0.8-1.3) mg/dL Est Cr Clr Drug Dosing 31.80 mL/min Estimated GFR (MDRD) 39 L (>60) Glucose 296 H (74-106) mg/dL Calcium 9.0 (8.5-10.1) mg/dL Total Bilirubin 0.4 (0.2-1.0) mg/dL AST 19 (15-37) U/L ALT 26 (12-78) U/L Alkaline Phosphatase 92 (46-116) U/L Total Protein 7.4 (6.4-8.2) g/dL Albumin 3.5 (3.4-5.0) g/dL Globulin 3.9 H (2.3-3.5) g/dL Albumin/Globulin Ratio 0.9 L (1.2-2.2) SARS-CoV-2 RNA (GEETA) (NEGATIVE) Blood Type Gel Antibody Screen Meds: Medications Generic Name Dose Route Start Last Admin Trade Name Freq PRN Reason Stop Dose Admin Pantoprazole Sodium 80 mg/ 100 mls @ 200 mls/hr 09/24/21 21:15 09/24/21 21:24 Sodium Chloride IV 200 mls/hr .BOLUS GEM Administration - Re-Assessments/Exams Free Text/Narrative Re-Assessment/Exam: 09/24/21 21:35 I reviewed the patient's labs showing CBC with a leukocyte count of 9.1, hemoglobin of 12.9 with a hematocrit of 39.6 and a platelet count of 248,000. Comprehensive metabolic panel was unremarkable except for a creatinine 1.7. The GFR is calculated at 39 and a glucose is 296. The patient is type II diabetic. The remainder of the basic panel shows a sodium 135, potassium 3.6, chloride 97, bicarbonate 26, BUN of 30. The PT INR is 12.5 and 1.2. PTT is 24.5. Patient is Hemoccult positive. He is negative for COVID-19. I discussed the case with Dr. France who felt that the patient probably did not need to be admitted if he was vitally stable, however, due to the patient's significant comorbidities including diabetes, hypertension, coronary artery disease, recent placement of a TAVR, anticoagulation with Plavix and aspirin, generalized weakness and overall marginal health it would be better to admit the patient in preparation for endoscopy tomorrow. I discussed the case with Dr. Keita who graciously is excepted the patient for admission. We initiated pantoprazole IV as this is likely an upper GI source of bleeding given the black tarry stools. In addition, the patient has significant epigastric discomfort and has had several episodes of emesis that was [id number] on initial onset of symptoms 2 days ago and has been dry heaving since. Departure - Departure Time of Disposition: 21:39 Disposition: Admitted As Inpatient 68 Clinical Impression: Upper GI bleed, S/P TAVR (transcatheter aortic valve replacement), Paroxysmal A-fib, PVD (peripheral vascular disease), Benign essential hypertension (HFpEF) heart failure with preserved ejection fraction Qualifiers: Heart failure chronicity: acute on chronic Qualified Code(s): I50.33 - Acute on chronic diastolic (congestive) heart failure CKD (chronic kidney disease) stage 3, GFR 30-59 ml/min Qualifiers: Chronic kidney disease stage 3 subtype: stage 3a (GFR 45-59) Qualified Code(s): N18.31 - Chronic kidney disease, stage 3a Type 2 diabetes mellitus Qualifiers: Diabetes mellitus long-term insulin 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 Diabetes mellitus complication status: with other specified complication Qualified Code(s): E11.69 - Type 2 diabetes mellitus with other specified complication - Discharge Information Referrals: Anthony Coon MD [Primary Care Provider] - Forms: ED Department Discharge Sepsis Event Note (ED) - Evaluation Sepsis Screening Result: No Definite Risk - Focused Exam Vital Signs: Vital Signs Temp Pulse Resp BP Pulse Ox 09/24/21 19:33 35.4 C L 50 L 18 172/58 H 99 - Problem List & Annotations (1) Paroxysmal A-fib SNOMED Code(s): 330670988 Code(s): I48.0 - PAROXYSMAL ATRIAL FIBRILLATION Status: Chronic Priority: Medium Current Visit: Yes (2) (HFpEF) heart failure with preserved ejection fraction SNOMED Code(s): 721507091 Code(s): I50.30 - UNSPECIFIED DIASTOLIC (CONGESTIVE) HEART FAILURE Status: Chronic Priority: Medium Current Visit: Yes Qualifiers: Heart failure chronicity: acute on chronic Qualified Code(s): I50.33 - Acute on chronic diastolic (congestive) heart failure (3) S/P TAVR (transcatheter aortic valve replacement) SNOMED Code(s): 8940911481781, 513255682, 735645408, [id number] Code(s): Z95.2 - PRESENCE OF PROSTHETIC HEART VALVE Status: Chronic Priority: High Current Visit: Yes (4) CHF (congestive heart failure) SNOMED Code(s): 40518745 Code(s): I50.9 - HEART FAILURE, UNSPECIFIED Status: Chronic Priority: Medium Current Visit: No Qualifiers: Heart failure type: unspecified Heart failure chronicity: acute on chronic Qualified Code(s): I50.9 - Heart failure, unspecified (5) Benign essential hypertension SNOMED Code(s): 4278962 Code(s): I10 - ESSENTIAL (PRIMARY) HYPERTENSION Status: Chronic Priority: Medium Current Visit: Yes (6) Type 2 diabetes mellitus SNOMED Code(s): 17736020 Code(s): E11.9 - TYPE 2 DIABETES MELLITUS WITHOUT COMPLICATIONS Status: Chronic Priority: Medium Current Visit: Yes Qualifiers: Diabetes mellitus long-term insulin 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 Diabetes mellitus complication status: with other specified complication Qualified Code(s): E11.69 - Type 2 diabetes mellitus with other specified complication; Z79.4 - termination clerk (current) use of insulin (7) CKD (chronic kidney disease) stage 3, GFR 30-59 ml/min SNOMED Code(s): 963339444 Code(s): N18.30 - CHRONIC KIDNEY DISEASE, STAGE 3 UNSPECIFIED Status: Chronic Priority: Medium Current Visit: Yes Qualifiers: Chronic kidney disease stage 3 subtype: stage 3a (GFR 45-59) Qualified Code(s): N18.31 - Chronic kidney disease, stage 3a (8) PVD (peripheral vascular disease) SNOMED Code(s): 510116448 Code(s): I73.9 - PERIPHERAL VASCULAR DISEASE, UNSPECIFIED Status: Chronic Priority: Medium Current Visit: Yes (9) Upper GI bleed SNOMED Code(s): 77772225 Code(s): K92.2 - GASTROINTESTINAL HEMORRHAGE, UNSPECIFIED Status: Acute Priority: High Current Visit: Yes - Problem List Review Problem List Initiated/Reviewed/Updated: Yes - My Orders Last 24 Hours: My Active Orders 09/24/21 19:45 PATIENT RETYPE [BBK] Stat TYPE AND SCREEN [BBK] Stat 09/24/21 21:15 Pantoprazole [ProTONIX IV] 80 mg Sodium Chloride 0.9% [Normal Saline] 100 ml IV .BOLUS - Assessment/Plan Last 24 Hours: My Active Orders 09/24/21 19:45 PATIENT RETYPE [BBK] Stat TYPE AND SCREEN [BBK] Stat 09/24/21 21:15 Pantoprazole [ProTONIX IV] 80 mg Sodium Chloride 0.9% [Normal Saline] 100 ml IV .BOLUS
[2021-09-24] MEDS ORDERED: Pantoprazole 80 MG in Sodium Chloride 0.9% 100 ML IV SCH (21:15)
[2021-09-24] MEDS ORDERED: Acetaminophen 650 MG Supp RECTAL PRN (21:58)
[2021-09-24] MEDS ORDERED: Ondansetron 4 MG/2 ML SDV IV PRN (21:58)
[2021-09-24] MEDS ORDERED: Promethazine 6.25 MG in Sodium Chloride 0.9% 50 ML IV PRN (21:58)
[2021-09-24] MEDS ORDERED: 50% Dextrose in Water 50 ML Syringe IVPUSH PRN (22:09)
[2021-09-24] MEDS ORDERED: Glucagon,Human Recombinant 1 MG Vial IM PRN (22:09)
[2021-09-24] MEDS ORDERED: Insulin Lispro 100 Unit/ML 3 ML KwikPen SUBCUT PRN (22:09)
--- NOTE | 2021-09-24 22:24 | PCM.HP.2 ---
H&P History of Present Illness - General Date of Service: 09/24/21 Admit Problem/Dx: Admission Diagnosis/Problem Admission Diagnosis/Problem Melena Source of Information: Patient, Family, Provider, RN History Limitations: Reports: No Limitations - History of Present Illness Initial Comments - Free Text/Narative: Patient is a 81yo male with PMH of TAVR, DM2, HTN, HLD, who presents for 2 days of NV and melena. he has been on omeprazole but is on plavix and aspirin, and started having vomiting 2 days ago, now has just residual nausea. Patient also complains of 2 days of melena. He is vitally stable, but with recent TAVR and DM2 and other comorbid conditions it was felt that he should be brought in. As patient was also already on omeprazole and still is having symptoms of GI bleed, it was also felt he is potentially more complicated of a case. Additionally, patient complains of weakness Patient states he wishes to be DNR/DNI Symptom Onset Date: 09/22/21 Duration of Symptoms: Reports: Constant Associated Symptoms: Reports: Nausea/Vomiting, Weakness Epigastric Pain Score (Numeric/FACES): 5 - Related Data Allergies/Adverse Reactions: Allergies Allergy/AdvReac Type Severity Reaction Status Date / Time No Known Allergies Allergy Verified 07/23/21 20:13 Home Medications: Home Meds Insulin Aspart [NovoLOG] 3 units SUBCUT TID PRN 02/07/14 [History] atorvaSTATin Calcium [Atorvastatin Calcium] 40 mg PO DAILY 02/07/14 [History] metFORMIN [Glucophage] 500 mg PO BID 02/07/14 [History] Aspirin [Adult Low Dose Aspirin EC] 81 mg PO DAILY 05/26/14 [History] Ergocalciferol (Vitamin D2) [Vitamin D2] 1 cap PO ASDIRECTED 05/26/14 [History] Cholecalciferol (Vitamin D3) [Vitamin D3] 1,000 units PO DAILY 04/13/19 [History] Insulin Degludec [Tresiba Flextouch U-200] 44 units SUBCUT BEDTIME 04/13/19 [History] Liraglutide [Victoza] 1.2 mg SUBCUT DAILY 04/13/19 [History] Multivitamin [Multiple Vitamins] 1 tab PO DAILY 04/13/19 [History] Omeprazole 40 mg PO DAILY 04/13/19 [History] Citalopram Hydrobromide [Celexa] 40 mg PO DAILY 07/25/19 [History] Furosemide 40 mg PO DAILY 07/25/19 [History] Acetaminophen [Tylenol Extra Strength] 500 mg PO Q4HR PRN 08/25/20 [History] Ammonium Lactate [Amlactin 12% Lotion] 1 applic TOP DAILY 08/25/20 [History] Triamcinolone Acetonide [Kenalog 0.1% Crm] 1 applic TOP ASDIRECTED PRN 08/25/20 [History] Clopidogrel [Plavix] 75 mg PO DAILY 06/02/21 [History] Gabapentin [Neurontin] 300 mg PO BID 06/02/21 [History] Gabapentin [Neurontin] 600 mg PO BEDTIME 06/02/21 [History] Losartan [Cozaar] 12.5 mg PO DAILY 06/02/21 [History] Magnesium Chloride [Mag-64] 64 mg PO BID 06/02/21 [History] Melatonin 5 mg PO BEDTIME 06/02/21 [History] Metoprolol Succinate 25 mg PO BID 06/02/21 [History] Mirabegron [Myrbetriq] 50 mg PO DAILY 06/02/21 [History] Potassium Chloride 20 meq PO DAILY 06/02/21 [History] Acetaminophen/HYDROcodone [[place] 325-5 MG] 1 - 2 tab PO Q6H PRN 2 Days #10 tab 07/23/21 [Rx] methocarbamoL [Methocarbamol] 500 mg PO Q8H PRN 10 Days #30 tablet 07/23/21 [Rx] Past Medical History HEENT History: Reports: Cataract, Impaired Vision Cardiovascular History: Reports: Arrhythmia, Blood Clots/VTE/DVT, CAD, Heart Murmur, High Cholesterol, Hypertension, [place], SOB on Exertion, Stents Respiratory History: Reports: Other (See Below) Other Respiratory History: ANDREWS LUNG Gastrointestinal History: Reports: GERD Genitourinary History: Reports: Urinary Incontinence Musculoskeletal History: Reports: Arthritis, Back Pain, Chronic Neurological History: Reports: Neuropathy, Diabetic, Vertigo Psychiatric History: Reports: Depression Endocrine/Metabolic History: Reports: Diabetes, Type II, IDDM Oncologic (Cancer) History: Reports: Malignant Melanoma, Prostate Dermatologic History: Reports: Melanoma, Other (See Below) Other Dermatologic History: DRY SKIN - Infectious Disease History Infectious Disease History: Reports: Chicken Pox, Measles, Mumps - Past Surgical History Head Surgeries/Procedures: Reports: None HEENT Surgical History: Reports: Adenoidectomy, Cataract Surgery, Eye Surgery, Tonsillectomy Cardiovascular Surgical History: Reports: Coronary Artery Stent Respiratory Surgical History: Reports: None GI Surgical History: Reports: Cholecystectomy, Colonoscopy, EGD, Hernia, Abdominal Male Surgical History: Reports: TURP-Transurethral Resection of Prostate, Other (See Below) Other Male Surgeries/Procedures: bladder repair Endocrine Surgical History: Reports: None Neurological Surgical History: Reports: Discectomy, Laminectomy, Lumbar Spine Musculoskeletal Surgical History: Reports: Arthroscopic Knee, Other (See Below) Other Musculoskeletal Surgeries/Procedures:: partial knee replacements, neck surg twice, back surg 3 times Oncologic Surgical History: Reports: None Dermatological Surgical History: Reports: Skin Biopsy Social & Family History - Family History Family Medical History: No Pertinent Family History - Tobacco Use Tobacco Use Status *Q: Never Tobacco User - Caffeine Use Caffeine Use: Reports: Coffee Other Caffeine Use: 3-4 cups daily Caffeine Use Comment: several cups to a pot a day H&P Review of Systems - Review of Systems: Review Of Systems: See Below General: Reports: Weakness HEENT: Reports: No Symptoms Pulmonary: Reports: No Symptoms Cardiovascular: Reports: No Symptoms Gastrointestinal: Reports: Abdominal Pain, Melena, Nausea, Vomiting Genitourinary: Reports: No Symptoms Musculoskeletal: Reports: No Symptoms Skin: Reports: No Symptoms Psychiatric: Reports: No Symptoms Neurological: Reports: No Symptoms Hematologic/Lymphatic: Reports: No Symptoms Immunologic: Reports: No Symptoms Exam - Exam Exam: See Below - Vital Signs Vital Signs: Last Vital Signs Temp 35.4 C L 09/24/21 19:33 Pulse 50 L 09/24/21 19:33 Resp 18 09/24/21 19:33 BP 172/58 H 09/24/21 19:33 Pulse Ox 99 09/24/21 19:33 Weight: 101.151 kg - Exam General: Alert, Oriented, 4 HEENT: PERRLA, Hearing Intact, Mucosa Moist & [place], Nares Patent, Normal Nasal Septum, Posterior Pharynx Clear, Conjunctiva Clear, EOMI, EACs Clear, TMs Clear Neck: Supple, Trachea Midline, 2 Lungs: Clear to Auscultation, Normal Respiratory Effort Cardiovascular: Regular Rate, Regular Rhythm GI/Abdominal Exam: Normal Bowel Sounds, Soft, No Organomegaly, No Distention, No Abnormal Bruit, No Mass, Tender. No: Non-Tender (Male) Exam: Deferred Rectal (Males) Exam: Deferred Back Exam: Normal Inspection, Full Range of Motion, NT Extremities: Normal Inspection, Normal Range of Motion, Non-Tender, No Pedal Edema, Normal Capillary Refill Skin: Warm, Dry, Intact Neurological: Cranial Nerves Intact, Reflexes Equal Bilateral Neuro Extensive - Mental Status: Alert, Oriented x3, Normal Mood/Affect, Normal Cognition Neuro Extensive - Motor, Sensory, Reflexes: CN II-XII Intact, Normal Gait, Normal Reflexes Psychiatric: Alert, Normal Affect, Normal Mood - Patient Data Lab Results Last 24 hrs: Laboratory Results - last 24 hr 09/24/21 09/24/21 09/24/21 Range/Units 19:45 19:45 19:49 WBC 9.1 (4.5-11.0) K/uL RBC 5.02 (4.30-5.90) M/uL Hgb 12.9 D (12.0-15.0) g/dL Hct 39.6 L (40.0-54.0) % MCV 79 L (80-98) fL MCH 26 L (27-31) pg MCHC 33 (32-36) % Plt Count 248 (150-400) K/uL Neut % (Auto) 72.8 H (36-66) % Lymph % (Auto) 17.9 L (24-44) % [place] % (Auto) 8.5 H (2-6) % Eos % (Auto) 0.5 L (2-4) % Baso % (Auto) 0.3 (0-1) % PT (9.2-10.6) sec INR APTT (21.4-31.8) sec Sodium (140-148) mmol/L Potassium (3.6-5.2) mmol/L Chloride (100-108) mmol/L Carbon Dioxide (21-32) mmol/L Anion Gap (5.0-14.0) mmol/L BUN (7-18) mg/dL Creatinine (0.8-1.3) mg/dL Est Cr Clr Drug Dosing mL/min Estimated GFR (MDRD) (>60) Glucose (74-106) mg/dL Calcium (8.5-10.1) mg/dL Total Bilirubin (0.2-1.0) mg/dL AST (15-37) U/L ALT (12-78) U/L Alkaline Phosphatase (46-116) U/L Total Protein (6.4-8.2) g/dL Albumin (3.4-5.0) g/dL Globulin (2.3-3.5) g/dL Albumin/Globulin Ratio (1.2-2.2) SARS-CoV-2 RNA (GEETA) Negative (NEGATIVE) Blood Type A POSITIVE Gel Antibody Screen Negative 09/24/21 09/24/21 Range/Units 20:02 20:02 WBC (4.5-11.0) K/uL RBC (4.30-5.90) M/uL Hgb (12.0-15.0) g/dL Hct (40.0-54.0) % MCV (80-98) fL MCH (27-31) pg MCHC (32-36) % Plt Count (150-400) K/uL Neut % (Auto) (36-66) % Lymph % (Auto) (24-44) % [place] % (Auto) (2-6) % Eos % (Auto) (2-4) % Baso % (Auto) (0-1) % PT 12.1 H (9.2-10.6) sec INR 1.2 APTT 24.5 (21.4-31.8) sec Sodium 135 L (140-148) mmol/L Potassium 3.6 (3.6-5.2) mmol/L Chloride 97 L (100-108) mmol/L Carbon Dioxide 26 (21-32) mmol/L Anion Gap 15.6 H (5.0-14.0) mmol/L BUN 30 H (7-18) mg/dL Creatinine 1.7 H (0.8-1.3) mg/dL Est Cr Clr Drug Dosing 31.80 mL/min Estimated GFR (MDRD) 39 L (>60) Glucose 296 H (74-106) mg/dL Calcium 9.0 (8.5-10.1) mg/dL Total Bilirubin 0.4 (0.2-1.0) mg/dL AST 19 (15-37) U/L ALT 26 (12-78) U/L Alkaline Phosphatase 92 (46-116) U/L Total Protein 7.4 (6.4-8.2) g/dL Albumin 3.5 (3.4-5.0) g/dL Globulin 3.9 H (2.3-3.5) g/dL Albumin/Globulin Ratio 0.9 L (1.2-2.2) SARS-CoV-2 RNA (GEETA) (NEGATIVE) Blood Type Gel Antibody Screen Result Diagrams: 09/24/21 19:45 09/24/21 20:02 Elijah Results Last 24 hrs: Microbiology 09/24/21 19:30 Stool Occult Blood (ELIJAH) - Final Stool / Feces Sepsis Event Note - Evaluation Sepsis Screening Result: No Definite Risk - Focused Exam Vital Signs: Vital Signs Temp Pulse Resp BP Pulse Ox 09/24/21 19:33 35.4 C L 50 L 18 172/58 H 99 - Problem List (1) Upper GI bleed SNOMED Code(s): 71898336 ICD Code: K92.2 - GASTROINTESTINAL HEMORRHAGE, UNSPECIFIED Status: Acute Priority: High Current Visit: Yes Onset Date: ~09/22/21 Problem Details: Will hold plavix and aspirin Patient started on pantoprazole, due to failure of outpatient PPI, will also start pepcid for dual coverage of acid reduction. Patient will be seen by surgery tomorrow for scope NPO until after scope May have ice chips (2) (HFpEF) heart failure with preserved ejection fraction SNOMED Code(s): 894677792 ICD Code: I50.30 - UNSPECIFIED DIASTOLIC (CONGESTIVE) HEART FAILURE Status: Chronic Priority: Medium Current Visit: Yes Problem Details: Will con tinue lasix and metoprolol. Will hold ARB at this time as no IV version Qualifiers: Heart failure chronicity: acute on chronic Qualified Code(s): I50.33 - Acute on chronic diastolic (congestive) heart failure (3) Benign essential hypertension SNOMED Code(s): 4415014 ICD Code: I10 - ESSENTIAL (PRIMARY) HYPERTENSION Status: Chronic Priority: Medium Current Visit: Yes Problem Details: Will hold ARB as no IV version available will give metoprolol 2.5mg QID (4) CKD (chronic kidney disease) stage 3, GFR 30-59 ml/min SNOMED Code(s): 424939546 ICD Code: N18.30 - CHRONIC KIDNEY DISEASE, STAGE 3 UNSPECIFIED Status: Chronic Priority: Medium Current Visit: Yes Problem Details: will continue lasix and monitoring CMP Qualifiers: Chronic kidney disease stage 3 subtype: stage 3a (GFR 45-59) Qualified Code(s): N18.31 - Chronic kidney disease, stage 3a (5) PVD (peripheral vascular disease) SNOMED Code(s): 965594604 ICD Code: I73.9 - PERIPHERAL VASCULAR DISEASE, UNSPECIFIED Status: Chronic Priority: Medium Current Visit: Yes Problem Details: plavix will be held due to GI Bleed (6) S/P TAVR (transcatheter aortic valve replacement) SNOMED Code(s): 0216818391757, 806541161, 362949716, 3803435037979 ICD Code: Z95.2 - PRESENCE OF PROSTHETIC HEART VALVE Status: Chronic Priority: High Current Visit: Yes Problem Details: will hold plavix and aspirin and losartan, will continue metoprolol IV (7) Type 2 diabetes mellitus SNOMED Code(s): 30980553 ICD Code: E11.9 - TYPE 2 DIABETES MELLITUS WITHOUT COMPLICATIONS Status: Chronic Priority: Medium Current Visit: Yes Problem Details: WIll decrease basal insulin to 22U until not NPO, PRN on humalog 3U with meals if BG over 250, will hold victoza and metformin Qualifiers: 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 Full Code a. If a patient experiences cardiac or respiratory arrest, all resuscitation efforts (including CPR, defibrillation, and airway management) will be performed. b. Patients without a specific code status order other than Full Code will be assumed to be Full Code Status. Intubation CPR Defibrillation YES YES YES 2. CPR Only: If the patient experiences cardiac or respiratory arrest, CPR will be perf ormed. Intubation CPR Defibrillation NO YES YES 3. DNR a. If there are changes in the patients' vital signs and condition, including respiratory arrest, treatment with medications and intubation, if indicated will be performed. b. If a patient experiences cardiac arrest, resuscitation efforts (CPR and Defibrillation) will not be performed. Intubation CPR Defibrillation YES NO NO 4. DNR/DNI a. If there are changes in the patient's vital signs and condition, including respiratory arrest, treatment with medications and noninvasive airway management/positive pressure ventilation, if indicated will be performed b. If a patient experiences a cardiac arrest, resuscitation efforts (including CPR, defibrillation and intubation) will not be performed. Intubation CPR Defibrillation NO NO NO 5. DNR/DNI/Comfort Measures a. All medical and nursing interventions will be for the sole purpose of providing pain/symptom management for the patient. b. If a patient experiences a cardiac or respiratory arrest, resuscitation efforts (including CPR, defibrillation and intubation) will not be performed. Intubation CPR Defibrillation NO NO NO ACTIVE MED ORDERS Generic Name Dose Route Start Last Admin Trade Name Freq PRN Reason Stop Dose Admin Acetaminophen 650 mg 09/24/21 21:58 Acetaminophen 650 Mg Supp RECTAL Q4H PRN Mild pain/fever Dextrose/Water 50 ml 09/24/21 22:09 50% Dextrose In Water 50 Ml Syringe IVPUSH ASDIRECTED PRN Hypoglycemia Famotidine 20 mg 09/25/21 09:00 Famotidine 20 Mg/2 Ml Sdv IVPUSH DAILY GEM Furosemide 40 mg 09/25/21 09:00 Furosemide 40 Mg/4 Ml Vial IVPUSH DAILY GEM Glucagon 1 mg 09/24/21 22:09 Glucagon,Human Recombinant 1 Mg Vial IM ASDIRECTED PRN Hypoglycemia Pantoprazole Sodium 80 mg/ 100 mls @ 200 mls/hr 09/24/21 21:15 09/24/21 21:24 Sodium Chloride IV 200 mls/hr .BOLUS GEM Administration Promethazine HCl 6.25 mg/ 50.25 mls @ 200 mls/hr 09/24/21 21:58 Sodium Chloride IV Q6H PRN Nausea/Vomiting Insulin Glargine 22 units 09/25/21 21:00 Insulin Glargine,Human Rec. Analog 100 Units/Ml 3 Ml Pen SUBCUT BEDTIME GEM Insulin Human Lispro 3 unit 09/24/21 22:09 Insulin Lispro 100 Unit/Ml 3 Ml Kwikpen SUBCUT TIDMEALS PRN hyperglycemia Metoprolol Tartrate 2.5 mg 09/24/21 22:15 Metoprolol Tartrate 5 Mg/5 Ml Sdv IVPUSH Q6H GEM Morphine Sulfate 2 mg 09/24/21 21:58 Morphine 2 Mg/Ml Syringe IVPUSH Q2H PRN Pain (severe 7-10) Ondansetron HCl 4 mg 09/24/21 21:58 Ondansetron 4 Mg/2 Ml Sdv IV Q6H PRN Nausea/Vomiting ACTIVE NON-MED ORDERS/Dietary 09/24/21 Dinner Nothing per Oral Now Diet [DIET] ACTIVE NON-MED ORDERS/Care 09/24/21 21:58 Blood Glucose Check, Bedside [RC] BIDMEALS Oxygen Therapy [RC] PRN Maintain SpO2% greater than: 92 Oxygen Therapy Mode, Primary: Nasal Cannula Oxygen Flow Rate (L/min): 2 Oxygen Therapy Mode, Secondary: Nasal Cannula Flow Rate (L/min), Secondary: 4 VTE/DVT Education [RC] Per Unit Routine Vital Signs [RC] Q4H 09/24/21 22:00 Cardiac Monitoring [RC] CONTINUOUS Pulse Oximetry [RC] CONTINUOUS 09/24/21 22:04 Notify Provider Consults [RC] ASDIRECTED ACTIVE NON-MED ORDERS/Orderable Interventions Blood Glucose Check, Bedside Start: 09/24/21 21:58 Freq: BIDMEALS Status: Active Protocol: BGL Cardiac Monitoring/Telemetry Start: 09/24/21 22:00 Text: Status: Active Freq: CONTINUOUS Protocol: Education: VTE/DVT Topics Start: 09/24/21 21:58 Freq: Per Unit Routine Status: Active Protocol: Notify Provider Consults Start: 09/24/21 22:04 Text: Review information in consult order and notify Status: Active appropriate consulting provider. Freq: ASDIRECTED Protocol: Oxygen Therapy Start: 09/24/21 21:58 Freq: PRN Status: Active Protocol: Pulse Oximetry Start: 09/24/21 22:00 Freq: CONTINUOUS Status: Active Protocol: Vital Signs Start: 09/24/21 21:58 Text: Click to edit a change in frequency and times. Status: Active Freq: Q4H Protocol: VS.PEDS ACTIVE NON-MED ORDERS/Consults 09/24/21 21:58 Consult to Physician [CONS] Routine Consulting Provider: Soy [place] Call Completed to Consulting Physician: Yes Reason for Consult: Upper GI Bleed Person Notified: Edilma Date Notified: 09/24/21 Time Notified: 21:30 Special Instructions: called by ED physician ACTIVE NON-MED ORDERS/LAB 09/24/21 19:45 PATIENT RETYPE [BBK] Stat BBK Wristband Number: [id number] TYPE AND SCREEN [BBK] Stat BBK Wristband Number: [id number] Comment: Specimen: Send someone from the department to collect 09/25/21 05:11 CBC WITH AUTO DIFF [HEME] AM Comment: Specimen: Send someone from the department to collect COMPREHENSIVE METABOLIC PN,CMP [CHEM] AM Comment: Specimen: Send someone from the department to collect ACTIVE ORDERS/MEDS 09/24/21 21:15 Pantoprazole [ProTONIX IV] 80 mg Sodium Chloride 0.9% [Normal Saline] 100 ml IV .BOLUS 09/24/21 21:58 Acetaminophen [Tylenol] 650 mg RECTAL Q4H PRN Morphine 2 mg IVPUSH Q2H PRN Ondansetron [Zofran] 4 mg IV Q6H PRN Promethazine [Phenergan] 6.25 mg Sodium Chloride 0.9% [Normal Saline] 50 ml IV Q6H 09/24/21 22:09 Dextrose 50% in Water 50 ml IVPUSH ASDIRECTED PRN Glucagon,Human Recombinant [GlucaGen] 1 mg IM ASDIRECTED PRN 09/24/21 22:09 Insulin Lispro [HumaLOG] 3 unit SUBCUT TIDMEALS PRN 09/24/21 22:15 Metoprolol Tartrate [Lopressor] 2.5 mg IVPUSH Q6H 09/25/21 09:00 Famotidine [Pepcid] 40 mg IVPUSH BID Furosemide [Lasix] 40 mg IVPUSH DAILY 09/25/21 21:00 Insulin Glarg,Human.Rec.Analog [LantUS Solostar] 22 units SUBCUT BEDTIME ACTIVE NON-MED ORDERS/Other 09/24/21 21:58 Patient Status [ADT] Routine Patient Status: Admit to Inpatient Admission Diagnosis/Problem: Melena Reason for Admit: Upper GI Bleed Nurse Unit Type: Medical-Surgical Admitting Physician: Alejandrina Keita Attending Physician: Yonas Callahan Medicare 96 Hour Certification Statement: This Patient is Admitted for Inpatient Services and is Medically Appropriate and Meets Medical Necessity for Inpatient Admission. I Reasonably Expect the Patient will Require Inpatient Services that Span a Period of Over 2 Midnights. My Rationale for Medically Necessary Inpatient Care will be Found in the Admission History & Physical and Progress Notes. I Reasonably Expect the Patient to be Discharged or Transferred within 96 Hours After Admission to this Critical Access Hospital. Provider Acknowledgement/Certification: Alejandrina Keita - Mortality Measure Prognosis:: Good
[2021-09-24] MEDS: Metoprolol Tartrate 5 MG/5 ML SDV IVPUSH SCH (23:01)
[2021-09-24] MEDS: Insulin Glargine,Human Rec. Analog 100 Units/ML 3 ML Pen SUBCUT SCH (23:01)
[2021-09-24] MEDS: NS + KCl 20mEq/L 1,000 ML IV SCH (23:02)
[2021-09-25] MEDS ORDERED: Melatonin 3 MG Tab PO PRN (00:04)
[2021-09-25] MEDS: Metoprolol Tartrate 5 MG/5 ML SDV IVPUSH SCH ×3 (04:39→16:28)
[2021-09-25] MEDS: Furosemide 40 MG/4 ML VIAL IVPUSH SCH (09:37)
[2021-09-25] MEDS: Famotidine 20 MG/2 ML SDV IVPUSH SCH (09:37)
[2021-09-25] MEDS: Morphine 2 MG/ML SYRINGE IVPUSH PRN ×2 (09:49→13:13)
[2021-09-25] MEDS: NS + KCl 20mEq/L 1,000 ML IV SCH (11:03)
[2021-09-25] MEDS ORDERED: Propofol 200 MG/20 ML SDV ONE (12:00)
[2021-09-25] MEDS ORDERED: Bisacodyl 5 MG Tab PO ONE ×4 (15:01→20:00)
[2021-09-25] MEDS ORDERED: Acetaminophen/HYDROcodone 325-5 MG Tab PO PRN (16:14)
[2021-09-25] MEDS ORDERED: Glucose Gel 15 GM in 37.5 GM Tube PO PRN (16:20)
[2021-09-25] MEDS ORDERED: 50% Dextrose in Water 50 ML Syringe IV PRN (16:20)
--- NOTE | 2021-09-25 16:24 | PCM.PN ---
- General Info Date of Service: 09/25/21 Subjective Update: Mr. Lombardi stable through the night with no ongoing evidence of active bleeding. EGD was performed by Dr. France and showed no obvious source of acute blood loss. Functional Status: Reports: Tolerating Diet, Ambulating, Urinating - Review of Systems General: Reports: Weakness, Fatigue. Denies: Fever, Chills Pulmonary: Reports: No Symptoms Cardiovascular: Reports: No Symptoms Gastrointestinal: Reports: Abdominal Pain. Denies: Difficulty Swallowing, Hematochezia, Melena, Nausea, Vomiting Genitourinary: Reports: No Symptoms - Patient Data Vitals - Most Recent: Last Vital Signs Temp 96.4 F L 09/25/21 16:01 Pulse 69 09/25/21 16:01 Resp 16 09/25/21 16:01 BP 147/58 H 09/25/21 16:01 Pulse Ox 95 09/25/21 16:01 Weight - Most Recent: 223 lb I&O - Last 24 Hours: Intake & Output 09/25/21 09/25/21 09/25/21 06:59 14:59 22:59 Output Total 100 Balance -100 Lab Results Last 24 Hours: Laboratory Results - last 24 hr 09/24/21 09/24/21 09/24/21 Range/Units 19:45 19:45 19:49 WBC 9.1 (4.5-11.0) K/uL RBC 5.02 (4.30-5.90) M/uL Hgb 12.9 D (12.0-15.0) g/dL Hct 39.6 L (40.0-54.0) % MCV 79 L (80-98) fL MCH 26 L (27-31) pg MCHC 33 (32-36) % Plt Count 248 (150-400) K/uL Neut % (Auto) 72.8 H (36-66) % Lymph % (Auto) 17.9 L (24-44) % [place] % (Auto) 8.5 H (2-6) % Eos % (Auto) 0.5 L (2-4) % Baso % (Auto) 0.3 (0-1) % PT (9.2-10.6) sec INR APTT (21.4-31.8) sec Sodium (140-148) mmol/L Potassium (3.6-5.2) mmol/L Chloride (100-108) mmol/L Carbon Dioxide (21-32) mmol/L Anion Gap (5.0-14.0) mmol/L BUN (7-18) mg/dL Creatinine (0.8-1.3) mg/dL Est Cr Clr Drug Dosing mL/min Estimated GFR (MDRD) (>60) Glucose (74-106) mg/dL POC Glucose (74-106) mg/dL Calcium (8.5-10.1) mg/dL Total Bilirubin (0.2-1.0) mg/dL AST (15-37) U/L ALT (12-78) U/L Alkaline Phosphatase (46-116) U/L Total Protein (6.4-8.2) g/dL Albumin (3.4-5.0) g/dL Globulin (2.3-3.5) g/dL Albumin/Globulin Ratio (1.2-2.2) SARS-CoV-2 RNA (GEETA) Negative (NEGATIVE) Blood Type A POSITIVE Gel Antibody Screen Negative 09/24/21 09/24/21 09/24/21 Range/Units 20:02 20:02 22:52 WBC (4.5-11.0) K/uL RBC (4.30-5.90) M/uL Hgb (12.0-15.0) g/dL Hct (40.0-54.0) % MCV (80-98) fL MCH (27-31) pg MCHC (32-36) % Plt Count (150-400) K/uL Neut % (Auto) (36-66) % Lymph % (Auto) (24-44) % [place] % (Auto) (2-6) % Eos % (Auto) (2-4) % Baso % (Auto) (0-1) % PT 12.1 H (9.2-10.6) sec INR 1.2 APTT 24.5 (21.4-31.8) sec Sodium 135 L (140-148) mmol/L Potassium 3.6 (3.6-5.2) mmol/L Chloride 97 L (100-108) mmol/L Carbon Dioxide 26 (21-32) mmol/L Anion Gap 15.6 H (5.0-14.0) mmol/L BUN 30 H (7-18) mg/dL Creatinine 1.7 H (0.8-1.3) mg/dL Est Cr Clr Drug Dosing 31.80 mL/min Estimated GFR (MDRD) 39 L (>60) Glucose 296 H (74-106) mg/dL POC Glucose 273 H (74-106) mg/dL Calcium 9.0 (8.5-10.1) mg/dL Total Bilirubin 0.4 (0.2-1.0) mg/dL AST 19 (15-37) U/L ALT 26 (12-78) U/L Alkaline Phosphatase 92 (46-116) U/L Total Protein 7.4 (6.4-8.2) g/dL Albumin 3.5 (3.4-5.0) g/dL Globulin 3.9 H (2.3-3.5) g/dL Albumin/Globulin Ratio 0.9 L (1.2-2.2) SARS-CoV-2 RNA (GEETA) (NEGATIVE) Blood Type Gel Antibody Screen 09/25/21 09/25/21 09/25/21 Range/Units 04:30 04:30 07:24 WBC 9.6 (4.5-11.0) K/uL RBC 4.54 (4.30-5.90) M/uL Hgb 11.6 L (12.0-15.0) g/dL Hct 36.5 L (40.0-54.0) % MCV 80 (80-98) fL MCH 26 L (27-31) pg MCHC 32 (32-36) % Plt Count 226 (150-400) K/uL Neut % (Auto) 67.2 H (36-66) % Lymph % (Auto) 22.8 L (24-44) % [place] % (Auto) 9.2 H (2-6) % Eos % (Auto) 0.6 L (2-4) % Baso % (Auto) 0.2 (0-1) % PT (9.2-10.6) sec INR APTT (21.4-31.8) sec Sodium 138 L (140-148) mmol/L Potassium 3.6 (3.6-5.2) mmol/L Chloride 99 L (100-108) mmol/L Carbon Dioxide 30 (21-32) mmol/L Anion Gap 12.6 (5.0-14.0) mmol/L BUN 32 H (7-18) mg/dL Creatinine 1.7 H (0.8-1.3) mg/dL Est Cr Clr Drug Dosing 31.80 mL/min Estimated GFR (MDRD) 39 L (>60) Glucose 220 H (74-106) mg/dL POC Glucose 197 H (74-106) mg/dL Calcium 8.6 (8.5-10.1) mg/dL Total Bilirubin 0.4 (0.2-1.0) mg/dL AST 18 (15-37) U/L ALT 25 (12-78) U/L Alkaline Phosphatase 82 (46-116) U/L Total Protein 6.3 L (6.4-8.2) g/dL Albumin 3.4 (3.4-5.0) g/dL Globulin 2.9 (2.3-3.5) g/dL Albumin/Globulin Ratio 1.2 (1.2-2.2) SARS-CoV-2 RNA (GEETA) (NEGATIVE) Blood Type Gel Antibody Screen 09/25/21 Range/Units 11:32 WBC (4.5-11.0) K/uL RBC (4.30-5.90) M/uL Hgb (12.0-15.0) g/dL Hct (40.0-54.0) % MCV (80-98) fL MCH (27-31) pg MCHC (32-36) % Plt Count (150-400) K/uL Neut % (Auto) (36-66) % Lymph % (Auto) (24-44) % [place] % (Auto) (2-6) % Eos % (Auto) (2-4) % Baso % (Auto) (0-1) % PT (9.2-10.6) sec INR APTT (21.4-31.8) sec Sodium (140-148) mmol/L Potassium (3.6-5.2) mmol/L Chloride (100-108) mmol/L Carbon Dioxide (21-32) mmol/L Anion Gap (5.0-14.0) mmol/L BUN (7-18) mg/dL Creatinine (0.8-1.3) mg/dL Est Cr Clr Drug Dosing mL/min Estimated GFR (MDRD) (>60) Glucose (74-106) mg/dL POC Glucose 200 H (74-106) mg/dL Calcium (8.5-10.1) mg/dL Total Bilirubin (0.2-1.0) mg/dL AST (15-37) U/L ALT (12-78) U/L Alkaline Phosphatase (46-116) U/L Total Protein (6.4-8.2) g/dL Albumin (3.4-5.0) g/dL Globulin (2.3-3.5) g/dL Albumin/Globulin Ratio (1.2-2.2) SARS-CoV-2 RNA (GEETA) (NEGATIVE) Blood Type Gel Antibody Screen Elijah Results Last 24 Hours: Microbiology 09/24/21 19:30 Stool Occult Blood (ELIJAH) - Final Stool / Feces Med Orders - Current: Current Medications Acetaminophen (Acetaminophen 650 Mg Supp) 650 mg RECTAL Q4H PRN PRN Reason: Mild pain/fever Hydrocodone Bitart/Acetaminophen (Acetaminophen/Hydrocodone 325-5 Mg Tab) 1 - 2 tab PO Q6H PRN PRN Reason: Pain (severe 7-10) Bisacodyl (Bisacodyl 5 Mg Tab) 10 mg PO ONETIME ONE Stop: 09/25/21 20:01 Dextrose (Glucose Gel 15 Gm In 37.5 Gm Tube) 15 gm PO ONETIME PRN PRN Reason: Hypoglycemia Dextrose/Water (50% Dextrose In Water 50 Ml Syringe) 50 ml IVPUSH ASDIRECTED PRN PRN Reason: Hypoglycemia Famotidine (Famotidine 20 Mg/2 Ml Sdv) 20 mg IVPUSH DAILY [facility] Last Admin: 09/25/21 09:37 Dose: 20 mg Documented by: Furosemide (Furosemide 40 Mg/4 Ml Vial) 40 mg IVPUSH DAILY [facility] Last Admin: 09/25/21 09:37 Dose: 40 mg Documented by: Gabapentin (Gabapentin 300 Mg Cap) 300 mg PO BID GEM Gabapentin (Gabapentin 300 Mg Cap) 600 mg PO BEDTIME [facility] Glucagon (Glucagon,Human Recombinant 1 Mg Vial) 1 mg IM ASDIRECTED PRN PRN Reason: Hypoglycemia Promethazine HCl 6.25 mg/ (Sodium Chloride) 50.25 mls @ 200 mls/hr IV Q6H PRN PRN Reason: Nausea/Vomiting Potassium Chloride/Sodium Chloride (Normal Saline With 20 Meq Kcl) 1,000 mls @ 75 mls/hr IV ASDIRECTED [facility] Last Admin: 09/25/21 11:03 Dose: 75 mls/hr Documented by: Insulin Glargine (Insulin Glargine,Human Rec. Analog 100 Units/Ml 3 Ml Pen) 22 units SUBCUT BEDTIME [facility] Last Admin: 09/24/21 23:01 Dose: 22 units Documented by: Liraglutide (Liraglutide (Rdna Origin) 0.6 Mg/0.1 Ml 3 Ml Pen) 1.2 mg SUBCUT DAILY [facility] Losartan Potassium (Losartan 25 Mg Tab) 12.5 mg PO DAILY [facility] Melatonin (Melatonin 3 Mg Tab) 9 mg PO BEDTIME PRN PRN Reason: Insomnia Last Admin: 09/25/21 01:58 Dose: 9 mg Documented by: Metoprolol Succinate (Metoprolol Succinate 25 Mg Tab.Er) 25 mg PO BID [facility] Metoprolol Tartrate (Metoprolol Tartrate 5 Mg/5 Ml Sdv) 2.5 mg IVPUSH Q6H [facility] Last Admin: 09/25/21 10:54 Dose: 2.5 mg Documented by: Morphine Sulfate (Morphine 2 Mg/Ml Syringe) 2 mg IVPUSH Q2H PRN PRN Reason: Pain (severe 7-10) Last Admin: 09/25/21 13:13 Dose: 2 mg Documented by: Non-Formulary Medication (Atorvastatin Calcium [Atorvastatin Calcium]) 40 mg PO DAILY [facility] Non-Formulary Medication (Citalopram Hydrobromide [Celexa]) 40 mg PO DAILY [facility] Non-Formulary Medication (Magnesium Chloride [Mag-64]) 64 mg PO BID [facility] Non-Formulary Medication (Melatonin [Melatonin]) 5 mg PO BEDTIME [facility] Non-Formulary Medication (Mirabegron [Myrbetriq]) 50 mg PO DAILY [facility] Ondansetron HCl (Ondansetron 4 Mg/2 Ml Sdv) 4 mg IV Q6H PRN PRN Reason: Nausea/Vomiting Polyethylene Glycol (Polyethylene Glycol 3350 Powder 238 Gm Bot) 238 gm PO ONETIME ONE Stop: 09/25/21 17:01 Discontinued Medications Bisacodyl (Bisacodyl 5 Mg Tab) 10 mg PO ONETIME ONE Stop: 09/25/21 16:01 Last Admin: 09/25/21 16:00 Dose: 10 mg Documented by: Pantoprazole Sodium 80 mg/ (Sodium Chloride) 100 mls @ 200 mls/hr IV .BOLUS GEM Last Admin: 09/24/21 21:24 Dose: 200 mls/hr Documented by: Insulin Glargine (Insulin Glargine,Human Rec. Analog 100 Units/Ml 3 Ml Pen) 22 units SUBCUT BEDTIME GEM Insulin Human Lispro (Insulin Lispro 100 Unit/Ml 3 Ml Kwikpen) 3 unit SUBCUT TIDMEALS PRN PRN Reason: hyperglycemia Non-Formulary Medication (Insulin Degludec [Tresiba Flextouch U-200]) 44 units SUBCUT BEDTIME GEM Propofol (Propofol 200 Mg/20 Ml Sdv) Confirm Administered Dose 200 mg .ROUTE .STK-MED ONE Stop: 09/25/21 12:01 - Exam General: Alert, Oriented, Cooperative, Mild Distress Lungs: Clear to Auscultation, Normal Respiratory Effort Cardiovascular: Regular Rate, Regular Rhythm, No Murmurs GI/Abdominal Exam: Soft, Non-Tender, No Organomegaly, No Distention Extremities: Non-Tender, No Pedal Edema - Patient Data Lab Results Last 24 hrs: Laboratory Results - last 24 hr 09/24/21 09/24/21 09/24/21 Range/Units 19:45 19:45 19:49 WBC 9.1 (4.5-11.0) K/uL RBC 5.02 (4.30-5.90) M/uL Hgb 12.9 D (12.0-15.0) g/dL Hct 39.6 L (40.0-54.0) % MCV 79 L (80-98) fL MCH 26 L (27-31) pg MCHC 33 (32-36) % Plt Count 248 (150-400) K/uL Neut % (Auto) 72.8 H (36-66) % Lymph % (Auto) 17.9 L (24-44) % [place] % (Auto) 8.5 H (2-6) % Eos % (Auto) 0.5 L (2-4) % Baso % (Auto) 0.3 (0-1) % PT (9.2-10.6) sec INR APTT (21.4-31.8) sec Sodium (140-148) mmol/L Potassium (3.6-5.2) mmol/L Chloride (100-108) mmol/L Carbon Dioxide (21-32) mmol/L Anion Gap (5.0-14.0) mmol/L BUN (7-18) mg/dL Creatinine (0.8-1.3) mg/dL Est Cr Clr Drug Dosing mL/min Estimated GFR (MDRD) (>60) Glucose (74-106) mg/dL POC Glucose (74-106) mg/dL Calcium (8.5-10.1) mg/dL Total Bilirubin (0.2-1.0) mg/dL AST (15-37) U/L ALT (12-78) U/L Alkaline Phosphatase (46-116) U/L Total Protein (6.4-8.2) g/dL Albumin (3.4-5.0) g/dL Globulin (2.3-3.5) g/dL Albumin/Globulin Ratio (1.2-2.2) SARS-CoV-2 RNA (GEETA) Negative (NEGATIVE) Blood Type A POSITIVE Gel Antibody Screen Negative 09/24/21 09/24/21 09/24/21 Range/Units 20:02 20:02 22:52 WBC (4.5-11.0) K/uL RBC (4.30-5.90) M/uL Hgb (12.0-15.0) g/dL Hct (40.0-54.0) % MCV (80-98) fL MCH (27-31) pg MCHC (32-36) % Plt Count (150-400) K/uL Neut % (Auto) (36-66) % Lymph % (Auto) (24-44) % [place] % (Auto) (2-6) % Eos % (Auto) (2-4) % Baso % (Auto) (0-1) % PT 12.1 H (9.2-10.6) sec INR 1.2 APTT 24.5 (21.4-31.8) sec Sodium 135 L (140-148) mmol/L Potassium 3.6 (3.6-5.2) mmol/L Chloride 97 L (100-108) mmol/L Carbon Dioxide 26 (21-32) mmol/L Anion Gap 15.6 H (5.0-14.0) mmol/L BUN 30 H (7-18) mg/dL Creatinine 1.7 H (0.8-1.3) mg/dL Est Cr Clr Drug Dosing 31.80 mL/min Estimated GFR (MDRD) 39 L (>60) Glucose 296 H (74-106) mg/dL POC Glucose 273 H (74-106) mg/dL Calcium 9.0 (8.5-10.1) mg/dL Total Bilirubin 0.4 (0.2-1.0) mg/dL AST 19 (15-37) U/L ALT 26 (12-78) U/L Alkaline Phosphatase 92 (46-116) U/L Total Protein 7.4 (6.4-8.2) g/dL Albumin 3.5 (3.4-5.0) g/dL Globulin 3.9 H (2.3-3.5) g/dL Albumin/Globulin Ratio 0.9 L (1.2-2.2) SARS-CoV-2 RNA (GEETA) (NEGATIVE) Blood Type Gel Antibody Screen 09/25/21 09/25/21 09/25/21 Range/Units 04:30 04:30 07:24 WBC 9.6 (4.5-11.0) K/uL RBC 4.54 (4.30-5.90) M/uL Hgb 11.6 L (12.0-15.0) g/dL Hct 36.5 L (40.0-54.0) % MCV 80 (80-98) fL MCH 26 L (27-31) pg MCHC 32 (32-36) % Plt Count 226 (150-400) K/uL Neut % (Auto) 67.2 H (36-66) % Lymph % (Auto) 22.8 L (24-44) % [place] % (Auto) 9.2 H (2-6) % Eos % (Auto) 0.6 L (2-4) % Baso % (Auto) 0.2 (0-1) % PT (9.2-10.6) sec INR APTT (21.4-31.8) sec Sodium 138 L (140-148) mmol/L Potassium 3.6 (3.6-5.2) mmol/L Chloride 99 L (100-108) mmol/L Carbon Dioxide 30 (21-32) mmol/L Anion Gap 12.6 (5.0-14.0) mmol/L BUN 32 H (7-18) mg/dL Creatinine 1.7 H (0.8-1.3) mg/dL Est Cr Clr Drug Dosing 31.80 mL/min Estimated GFR (MDRD) 39 L (>60) Glucose 220 H (74-106) mg/dL POC Glucose 197 H (74-106) mg/dL Calcium 8.6 (8.5-10.1) mg/dL Total Bilirubin 0.4 (0.2-1.0) mg/dL AST 18 (15-37) U/L ALT 25 (12-78) U/L Alkaline Phosphatase 82 (46-116) U/L Total Protein 6.3 L (6.4-8.2) g/dL Albumin 3.4 (3.4-5.0) g/dL Globulin 2.9 (2.3-3.5) g/dL Albumin/Globulin Ratio 1.2 (1.2-2.2) SARS-CoV-2 RNA (GEETA) (NEGATIVE) Blood Type Gel Antibody Screen 09/25/21 Range/Units 11:32 WBC (4.5-11.0) K/uL RBC (4.30-5.90) M/uL Hgb (12.0-15.0) g/dL Hct (40.0-54.0) % MCV (80-98) fL MCH (27-31) pg MCHC (32-36) % Plt Count (150-400) K/uL Neut % (Auto) (36-66) % Lymph % (Auto) (24-44) % [place] % (Auto) (2-6) % Eos % (Auto) (2-4) % Baso % (Auto) (0-1) % PT (9.2-10.6) sec INR APTT (21.4-31.8) sec Sodium (140-148) mmol/L Potassium (3.6-5.2) mmol/L Chloride (100-108) mmol/L Carbon Dioxide (21-32) mmol/L Anion Gap (5.0-14.0) mmol/L BUN (7-18) mg/dL Creatinine (0.8-1.3) mg/dL Est Cr Clr Drug Dosing mL/min Estimated GFR (MDRD) (>60) Glucose (74-106) mg/dL POC Glucose 200 H (74-106) mg/dL Calcium (8.5-10.1) mg/dL Total Bilirubin (0.2-1.0) mg/dL AST (15-37) U/L ALT (12-78) U/L Alkaline Phosphatase (46-116) U/L Total Protein (6.4-8.2) g/dL Albumin (3.4-5.0) g/dL Globulin (2.3-3.5) g/dL Albumin/Globulin Ratio (1.2-2.2) SARS-CoV-2 RNA (GEETA) (NEGATIVE) Blood Type Gel Antibody Screen Result Diagrams: 09/25/21 04:30 09/25/21 04:30 Elijah Results Last 24 hrs: Microbiology 09/24/21 19:30 Stool Occult Blood (ELIJAH) - Final Stool / Feces Sepsis Event Note - Evaluation Sepsis Screening Result: No Definite Risk - Focused Exam Vital Signs: Vital Signs Temp Temp Pulse Pulse Resp BP BP 09/25/21 16:01 96.4 F L 69 16 147/58 H 09/25/21 14:26 96.1 F L 78 16 109/87 09/25/21 14:00 96.1 F L 67 150/57 H 09/25/21 13:45 67 16 154/56 H 09/25/21 13:32 09/25/21 13:26 78 16 148/61 H 09/25/21 13:20 95.7 F L 78 16 117/64 09/25/21 12:55 97.2 F 75 16 139/61 09/25/21 12:50 56 L 16 132/76 09/25/21 12:45 72 14 129/66 09/25/21 12:40 69 14 121/54 L 09/25/21 12:36 97.0 F 75 123/64 09/25/21 11:00 66 133/80 09/25/21 10:57 72 131/72 09/25/21 10:56 67 128/65 09/25/21 10:54 73 128/65 09/25/21 08:00 96.1 F L 69 16 137/62 09/25/21 06:59 09/25/21 04:39 74 134/68 09/25/21 04:38 96.1 F L 74 16 134/68 Pulse Ox 09/25/21 16:01 95 09/25/21 14:26 97 09/25/21 14:00 09/25/21 13:45 97 09/25/21 13:32 96 09/25/21 13:26 98 09/25/21 13:20 98 09/25/21 12:55 99 09/25/21 12:50 99 09/25/21 12:45 99 09/25/21 12:40 97 09/25/21 12:36 09/25/21 11:00 09/25/21 10:57 09/25/21 10:56 09/25/21 10:54 09/25/21 08:00 98 09/25/21 06:59 94 L 09/25/21 04:39 09/25/21 04:38 97 - Problem List Review Problem List Initiated/Reviewed/Updated: Yes - My Orders Last 24 Hours: My Active Orders 09/25/21 Lunch Clear Liquid Diet [DIET] 09/25/21 15:01 Verify Patient Consent Obtain [RC] ASDIRECTED Schedule Procedure [COMM] Routine 09/25/21 16:14 Acetaminophen/HYDROcodone [[place] 325-5 MG] 1 - 2 tab PO Q6H PRN 09/25/21 16:15 Citalopram Hydrobromide [Celexa] 40 mg PO DAILY 09/25/21 16:20 Communication Order [RC] STAT Diabetes Education [RC] Click to Edit Notify Provider [RC] PRN Dextrose 50% in Water 50 ml IV ONETIME PRN Dextrose [Glutose 15] 15 gm PO ONETIME PRN 09/25/21 17:00 Insulin Lispro [HumaLOG] See Protocol SUBCUT QIDACANDBED polyethylene glycoL 3350 [MiraLAX] 238 gm PO ONETIME ONE 09/25/21 17:13 HGB [HEMOGLOBIN] [HEME] Stat 09/25/21 20:00 bisacodyL [Dulcolax] 10 mg PO ONETIME ONE 09/25/21 21:00 Gabapentin [Neurontin] 300 mg PO BID Gabapentin [Neurontin] 600 mg PO BEDTIME Magnesium Chloride [Mag-64] 64 mg PO BID Melatonin [Melatonin] 5 mg PO BEDTIME Metoprolol Succinate [Toprol XL] 25 mg PO BID 09/26/21 05:00 BASIC METABOLIC PANEL,BMP [CHEM] Timed CBC WITH AUTO DIFF [HEME] Timed 09/26/21 Breakfast NPO After Midnight [Nothing per Oral After Midnight Diet] [DIET] 09/26/21 09:00 Liraglutide [Victoza] 1.2 mg SUBCUT DAILY Losartan [Cozaar] 12.5 mg PO DAILY Mirabegron [Myrbetriq] 50 mg PO DAILY atorvaSTATin Calcium [Atorvastatin Calcium] 40 mg PO DAILY - Plan Plan:: ASSESSMENT AND PLAN GI BLEED-no evidence of active bleeding since admission, hemoglobin remains low but stable. EGD performed today showed no obvious source of acute blood loss. -Continue oral omeprazole -Discontinue Protonix and Pepcid -Continue to hold aspirin and Plavix -Colonoscopy prep today -Colonoscopy with Dr. France in a.m. ACUTE BLOOD LOSS ANEMIA -Serial hemoglobin levels -Transfuse for active bleeding or further drop in hemoglobin DIASTOLIC CONGESTIVE HEART FAILURE-appears to be well compensated at this time -Continue with metoprolol and ARB TYPE 2 DIABETES MELLITUS -Continue current dose of long-acting insulin -4 times daily glucometers -Moderate dose sliding scale Humalog CHRONIC KIDNEY DISEASE STAGE III -Closely monitor urine output and renal function STATUS POST TAVR -Continue to hold aspirin and Plavix MAINTENANCE ISSUES -DVT prophylaxis; SCUDs -GI prophylaxis; omeprazole as above -Mcclellan catheter; not indicated -Nutrition; clear liquid diet, n.p.o. after midnight -Nicotine dependence; not required CODE STATUS-DNR/DNI ADMISSION STATUS-patient will be admitted to inpatient status, expect at least a 2 night hospital stay for evaluation and management of problems as outlined above. At the time of this admission I do not reasonably expected evaluation and management of this problem will require more than a 96 hour hospital stay. DISPOSITION-anticipate discharge to home after the hospital stay. PRIMARY CARE PROVIDER-Dr. Coon
[2021-09-25] MEDS ORDERED: Polyethylene Glycol 3350 Powder 238 GM Bot PO ONE ×2 (17:00)
[2021-09-25] MEDS: Insulin Lispro 100 Unit/ML 3 ML KwikPen SUBCUT SCH ×2 (17:38→21:02)
--- NOTE | 2021-09-25 19:17 | OR ---
DATE OF PROCEDURE: 09/25/2021 SURGEON: Soy France MD PROCEDURE: Esophagogastroduodenoscopy. FINDINGS: 1. Mild inflammation of the GE junction. 2. No other etiology for bleeding. RISKS: Risks, benefits, alternatives, and limitations including, but not limited to infection, bleeding, perforation, false positives and false negatives were explained to the patient and they wished to proceed. PROCEDURE IN DETAIL: The patient was placed in the left lateral decubitus position. The EGD scope was introduced and advanced atraumatically to the second part of the duodenum. No evidence of duodenitis or ulceration. No old or new blood. Within the stomach itself, there was no gastritis. No ulceration. No old or new blood. The patient had inflammation in the GE junction concerning for reflux disease. It was biopsied in all 4 quadrants using cold biopsy forceps. No etiology for the bleeding. The patient tolerated procedure well. Soy France MD /[id number]
[2021-09-25] MEDS: Metoprolol Succinate 50 MG Tab.ER PO SCH (20:16)
[2021-09-25] MEDS: Melatonin 3 MG Tab PO SCH ×2 (20:17→21:04)
[2021-09-25] MEDS: Magnesium Oxide 400 MG Tab PO SCH (20:17)
[2021-09-25] MEDS: Gabapentin 300 MG Cap PO SCH (20:17)
[2021-09-25] MEDS ORDERED: Insulin Glargine,Human Rec. Analog 100 Units/ML 3 ML Pen SUBCUT SCH (21:00)
[2021-09-25] MEDS ORDERED: Metoprolol Succinate 25 MG Tab.ER PO SCH (21:00)
[2021-09-25] MEDS ORDERED: Non-Formulary Medication 1 Each (Insulin Degludec [Tresiba Flextouch U-200] 200 UNIT/ML Pe SUBCUT SCH (21:00)
[2021-09-25] MEDS: Insulin Glargine,Human Rec. Analog 100 Units/ML 3 ML Pen SUBCUT SCH (21:03)
[2021-09-26] MEDS: NS + KCl 20mEq/L 1,000 ML IV SCH ×2 (00:39→13:46)
[2021-09-26] MEDS: Insulin Lispro 100 Unit/ML 3 ML KwikPen SUBCUT SCH ×4 (07:36→21:21)
[2021-09-26] MEDS: Metoprolol Succinate 50 MG Tab.ER PO SCH ×2 (08:08→21:23)
[2021-09-26] MEDS: Furosemide 40 MG/4 ML VIAL IVPUSH SCH (09:17)
[2021-09-26] MEDS: Famotidine 20 MG/2 ML SDV IVPUSH SCH (09:39)
[2021-09-26] MEDS: Gabapentin 300 MG Cap PO SCH ×3 (09:54→21:23)
[2021-09-26] MEDS ORDERED: fentaNYL 100 MCG/2 ML SDV ONE (13:49)
[2021-09-26] MEDS ORDERED: Propofol 200 MG/20 ML SDV ONE ×2 (13:49→14:38)
[2021-09-26] MEDS: Liraglutide (rDNA Origin) 0.6 MG/0.1 ML 3 ML Pen SUBCUT SCH (15:22)
[2021-09-26] MEDS: Magnesium Oxide 400 MG Tab PO SCH ×2 (15:23→21:23)
[2021-09-26] MEDS: atorvaSTATin 20 MG Tab PO SCH (15:23)
[2021-09-26] MEDS: Losartan 25 MG Tab PO SCH (15:23)
[2021-09-26] MEDS: Mirabegron 25 MG Tab Extended Release PO SCH (15:24)
[2021-09-26] MEDS: Citalopram 20 MG Tab PO SCH (15:24)
--- NOTE | 2021-09-26 17:35 | PCM.PN ---
- General Info Date of Service: 09/26/21 Subjective Update: Mr. Lombardi has been stable over the last 24 h with no further evidence of active bleeding. Overall strength and energy level seem to be improved and he denies s hortness of breath or lightheadedness. Colonoscopy performed today by Dr. France did show a few small polyps that were removed and diverticulosis. No area of active bleeding or old blood was noted within the colon. Functional Status: Reports: Ambulating, Urinating - Review of Systems General: Reports: No Symptoms Pulmonary: Reports: No Symptoms Cardiovascular: Reports: No Symptoms Gastrointestinal: Reports: No Symptoms Genitourinary: Reports: No Symptoms - Patient Data Vitals - Most Recent: Last Vital Signs Temp 96.4 F L 09/26/21 16:55 Pulse 63 09/26/21 16:55 Resp 14 09/26/21 16:55 BP 122/49 L 09/26/21 16:55 Pulse Ox 94 L 09/26/21 16:55 Weight - Most Recent: 223 lb I&O - Last 24 Hours: Intake & Output 09/26/21 09/26/21 09/26/21 06:59 14:59 22:59 Intake Total 2233 846 Balance 2233 846 Lab Results Last 24 Hours: Laboratory Results - last 24 hr 09/25/21 09/25/21 09/25/21 Range/Units 17:25 17:30 20:59 WBC (4.5-11.0) K/uL RBC (4.30-5.90) M/uL Hgb 12.1 (12.0-15.0) g/dL Hct (40.0-54.0) % MCV (80-98) fL MCH (27-31) pg MCHC (32-36) % Plt Count (150-400) K/uL Neut % (Auto) (36-66) % Lymph % (Auto) (24-44) % Ripley % (Auto) (2-6) % Eos % (Auto) (2-4) % Baso % (Auto) (0-1) % Sodium (140-148) mmol/L Potassium (3.6-5.2) mmol/L Chloride (100-108) mmol/L Carbon Dioxide (21-32) mmol/L Anion Gap (5.0-14.0) mmol/L BUN (7-18) mg/dL Creatinine (0.8-1.3) mg/dL Est Cr Clr Drug Dosing mL/min Estimated GFR (MDRD) (>60) Glucose (74-106) mg/dL POC Glucose 190 H 318 H (74-106) mg/dL Calcium (8.5-10.1) mg/dL 09/26/21 09/26/21 09/26/21 Range/Units 05:35 05:35 07:26 WBC 9.1 (4.5-11.0) K/uL RBC 4.49 (4.30-5.90) M/uL Hgb 11.7 L (12.0-15.0) g/dL Hct 36.6 L (40.0-54.0) % MCV 82 (80-98) fL MCH 26 L (27-31) pg MCHC 32 (32-36) % Plt Count 199 (150-400) K/uL Neut % (Auto) 62.4 (36-66) % Lymph % (Auto) 25.4 (24-44) % Ripley % (Auto) 10.5 H (2-6) % Eos % (Auto) 1.4 L (2-4) % Baso % (Auto) 0.3 (0-1) % Sodium 139 L (140-148) mmol/L Potassium 3.7 (3.6-5.2) mmol/L Chloride 101 (100-108) mmol/L Carbon Dioxide 29 (21-32) mmol/L Anion Gap 12.7 (5.0-14.0) mmol/L BUN 33 H (7-18) mg/dL Creatinine 1.5 H (0.8-1.3) mg/dL Est Cr Clr Drug Dosing 36.04 mL/min Estimated GFR (MDRD) 45 L (>60) Glucose 75 (74-106) mg/dL POC Glucose 83 (74-106) mg/dL Calcium 8.4 L (8.5-10.1) mg/dL 09/26/21 09/26/21 09/26/21 Range/Units 11:36 13:45 17:07 WBC (4.5-11.0) K/uL RBC (4.30-5.90) M/uL Hgb 11.2 L (12.0-15.0) g/dL Hct (40.0-54.0) % MCV (80-98) fL MCH (27-31) pg MCHC (32-36) % Plt Count (150-400) K/uL Neut % (Auto) (36-66) % Lymph % (Auto) (24-44) % Ripley % (Auto) (2-6) % Eos % (Auto) (2-4) % Baso % (Auto) (0-1) % Sodium (140-148) mmol/L Potassium (3.6-5.2) mmol/L Chloride (100-108) mmol/L Carbon Dioxide (21-32) mmol/L Anion Gap (5.0-14.0) mmol/L BUN (7-18) mg/dL Creatinine (0.8-1.3) mg/dL Est Cr Clr Drug Dosing mL/min Estimated GFR (MDRD) (>60) Glucose (74-106) mg/dL POC Glucose 98 99 (74-106) mg/dL Calcium (8.5-10.1) mg/dL 09/26/21 Range/Units 17:07 WBC (4.5-11.0) K/uL RBC (4.30-5.90) M/uL Hgb (12.0-15.0) g/dL Hct (40.0-54.0) % MCV (80-98) fL MCH (27-31) pg MCHC (32-36) % Plt Count (150-400) K/uL Neut % (Auto) (36-66) % Lymph % (Auto) (24-44) % Ripley % (Auto) (2-6) % Eos % (Auto) (2-4) % Baso % (Auto) (0-1) % Sodium (140-148) mmol/L Potassium (3.6-5.2) mmol/L Chloride (100-108) mmol/L Carbon Dioxide (21-32) mmol/L Anion Gap (5.0-14.0) mmol/L BUN (7-18) mg/dL Creatinine (0.8-1.3) mg/dL Est Cr Clr Drug Dosing mL/min Estimated GFR (MDRD) (>60) Glucose (74-106) mg/dL POC Glucose 158 H (74-106) mg/dL Calcium (8.5-10.1) mg/dL Med Orders - Current: Current Medications Acetaminophen (Acetaminophen 650 Mg Supp) 650 mg RECTAL Q4H PRN PRN Reason: Mild pain/fever Hydrocodone Bitart/Acetaminophen (Acetaminophen/Hydrocodone 325-5 Mg Tab) 1 - 2 tab PO Q6H PRN PRN Reason: Pain (severe 7-10) Last Admin: 09/25/21 17:32 Dose: 1 tab Documented by: Atorvastatin Calcium (Atorvastatin 20 Mg Tab) 40 mg PO DAILY [facility] Last Admin: 09/26/21 15:23 Dose: 40 mg Documented by: Citalopram Hydrobromide (Citalopram 20 Mg Tab) 40 mg PO DAILY [facility] Last Admin: 09/26/21 15:24 Dose: 40 mg Documented by: Clopidogrel Bisulfate (Clopidogrel 75 Mg Tab) 75 mg PO DAILY [facility] Dextrose (Glucose Gel 15 Gm In 37.5 Gm Tube) 15 gm PO ONETIME PRN PRN Reason: Hypoglycemia Dextrose/Water (50% Dextrose In Water 50 Ml Syringe) 50 ml IVPUSH ASDIRECTED PRN PRN Reason: Hypoglycemia Dextrose/Water (50% Dextrose In Water 50 Ml Syringe) 50 ml IV ONETIME PRN PRN Reason: Hypoglycemia Famotidine (Famotidine 20 Mg/2 Ml Sdv) 20 mg IVPUSH DAILY [facility] Last Admin: 09/26/21 09:39 Dose: 20 mg Documented by: Furosemide (Furosemide 40 Mg/4 Ml Vial) 40 mg IVPUSH DAILY [facility] Last Admin: 09/26/21 09:17 Dose: 40 mg Documented by: Gabapentin (Gabapentin 300 Mg Cap) 300 mg PO BID@0800,1400 [facility] Last Admin: 09/26/21 15:24 Dose: 300 mg Documented by: Gabapentin (Gabapentin 300 Mg Cap) 600 mg PO BEDTIME [facility] Last Admin: 09/25/21 20:17 Dose: 600 mg Documented by: Glucagon (Glucagon,Human Recombinant 1 Mg Vial) 1 mg IM ASDIRECTED PRN PRN Reason: Hypoglycemia Promethazine HCl 6.25 mg/ (Sodium Chloride) 50.25 mls @ 200 mls/hr IV Q6H PRN PRN Reason: Nausea/Vomiting Insulin Glargine (Insulin Glargine,Human Rec. Analog 100 Units/Ml 3 Ml Pen) 22 units SUBCUT BEDTIME [facility] Last Admin: 09/25/21 21:03 Dose: 22 units Documented by: Insulin Human Lispro (Insulin Lispro 100 Unit/Ml 3 Ml Kwikpen) 0 unit SUBCUT QIDACANDBED [facility]; Protocol Last Admin: 09/26/21 17:29 Dose: 2 unit Documented by: Liraglutide (Liraglutide (Rdna Origin) 0.6 Mg/0.1 Ml 3 Ml Pen) 1.2 mg SUBCUT DAILY [facility] Last Admin: 09/26/21 15:22 Dose: Not Given Documented by: Losartan Potassium (Losartan 25 Mg Tab) 12.5 mg PO DAILY [facility] Last Admin: 09/26/21 15:23 Dose: 12.5 mg Documented by: Magnesium Oxide (Magnesium Oxide 400 Mg Tab) 400 mg PO BID [facility] Last Admin: 09/26/21 15:23 Dose: Not Given Documented by: Melatonin (Melatonin 3 Mg Tab) 9 mg PO BEDTIME PRN PRN Reason: Insomnia Last Admin: 09/25/21 01:58 Dose: 9 mg Documented by: Melatonin (Melatonin 3 Mg Tab) 6 mg PO BEDTIME [facility] Last Admin: 09/25/21 21:04 Dose: 6 mg Documented by: Metoprolol Succinate (Metoprolol Succinate 50 Mg Tab.Er) 50 mg PO BID [facility] Last Admin: 09/26/21 08:08 Dose: 50 mg Documented by: Mirabegron (Mirabegron 25 Mg Tab Extended Release) 50 mg PO DAILY [facility] Last Admin: 09/26/21 15:24 Dose: 50 mg Documented by: Morphine Sulfate (Morphine 2 Mg/Ml Syringe) 2 mg IVPUSH Q2H PRN PRN Reason: Pain (severe 7-10) Last Admin: 09/25/21 13:13 Dose: 2 mg Documented by: Ondansetron HCl (Ondansetron 4 Mg/2 Ml Sdv) 4 mg IV Q6H PRN PRN Reason: Nausea/Vomiting Discontinued Medications Bisacodyl (Bisacodyl 5 Mg Tab) 10 mg PO ONETIME ONE Stop: 09/25/21 16:01 Last Admin: 09/25/21 16:00 Dose: 10 mg Documented by: Bisacodyl (Bisacodyl 5 Mg Tab) 10 mg PO ONETIME ONE Stop: 09/25/21 20:01 Last Admin: 09/25/21 20:17 Dose: 10 mg Documented by: Fentanyl (Fentanyl 100 Mcg/2 Ml Sdv) Confirm Administered Dose 100 mcg .ROUTE .STK-MED ONE Stop: 09/26/21 13:50 Pantoprazole Sodium 80 mg/ (Sodium Chloride) 100 mls @ 200 mls/hr IV .BOLUS [facility] Last Admin: 09/24/21 21:24 Dose: 200 mls/hr Documented by: Potassium Chloride/Sodium Chloride (Normal Saline With 20 Meq Kcl) 1,000 mls @ 75 mls/hr IV ASDIRECTED [facility] Last Admin: 09/26/21 13:46 Dose: 75 mls/hr Documented by: Insulin Glargine (Insulin Glargine,Human Rec. Analog 100 Units/Ml 3 Ml Pen) 22 units SUBCUT BEDTIME GEM Insulin Human Lispro (Insulin Lispro 100 Unit/Ml 3 Ml Kwikpen) 3 unit SUBCUT TIDMEALS PRN PRN Reason: hyperglycemia Metoprolol Succinate (Metoprolol Succinate 25 Mg Tab.Er) 25 mg PO BID [facility] Metoprolol Tartrate (Metoprolol Tartrate 5 Mg/5 Ml Sdv) 2.5 mg IVPUSH Q6H [facility] Last Admin: 09/25/21 16:28 Dose: Not Given Documented by: Non-Formulary Medication (Insulin Degludec [Tresiba Flextouch U-200]) 44 units SUBCUT BEDTIME [facility] Polyethylene Glycol (Polyethylene Glycol 3350 Powder 238 Gm Bot) 238 gm PO ONETIME ONE Stop: 09/25/21 17:01 Last Admin: 09/25/21 16:56 Dose: 238 gram Documented by: Propofol (Propofol 200 Mg/20 Ml Sdv) Confirm Administered Dose 200 mg .ROUTE .STK-MED ONE Stop: 09/25/21 12:01 Propofol (Propofol 200 Mg/20 Ml Sdv) Confirm Administered Dose 200 mg .ROUTE .STK-MED ONE Stop: 09/26/21 13:50 Propofol (Propofol 200 Mg/20 Ml Sdv) Confirm Administered Dose 200 mg .ROUTE .STK-MED ONE Stop: 09/26/21 14:39 - Exam Quality Assessment: DVT Prophylaxis General: Alert, Oriented, Cooperative, No Acute Distress Lungs: Clear to Auscultation, Normal Respiratory Effort Cardiovascular: Regular Rate, Regular Rhythm, No Murmurs GI/Abdominal Exam: Soft, Non-Tender, No Organomegaly, No Distention Extremities: Non-Tender, No Pedal Edema - Patient Data Lab Results Last 24 hrs: Laboratory Results - last 24 hr 09/25/21 09/25/21 09/25/21 Range/Units 17:25 17:30 20:59 WBC (4.5-11.0) K/uL RBC (4.30-5.90) M/uL Hgb 12.1 (12.0-15.0) g/dL Hct (40.0-54.0) % MCV (80-98) fL MCH (27-31) pg MCHC (32-36) % Plt Count (150-400) K/uL Neut % (Auto) (36-66) % Lymph % (Auto) (24-44) % Ripley % (Auto) (2-6) % Eos % (Auto) (2-4) % Baso % (Auto) (0-1) % Sodium (140-148) mmol/L Potassium (3.6-5.2) mmol/L Chloride (100-108) mmol/L Carbon Dioxide (21-32) mmol/L Anion Gap (5.0-14.0) mmol/L BUN (7-18) mg/dL Creatinine (0.8-1.3) mg/dL Est Cr Clr Drug Dosing mL/min Estimated GFR (MDRD) (>60) Glucose (74-106) mg/dL POC Glucose 190 H 318 H (74-106) mg/dL Calcium (8.5-10.1) mg/dL 09/26/21 09/26/21 09/26/21 Range/Units 05:35 05:35 07:26 WBC 9.1 (4.5-11.0) K/uL RBC 4.49 (4.30-5.90) M/uL Hgb 11.7 L (12.0-15.0) g/dL Hct 36.6 L (40.0-54.0) % MCV 82 (80-98) fL MCH 26 L (27-31) pg MCHC 32 (32-36) % Plt Count 199 (150-400) K/uL Neut % (Auto) 62.4 (36-66) % Lymph % (Auto) 25.4 (24-44) % Ripley % (Auto) 10.5 H (2-6) % Eos % (Auto) 1.4 L (2-4) % Baso % (Auto) 0.3 (0-1) % Sodium 139 L (140-148) mmol/L Potassium 3.7 (3.6-5.2) mmol/L Chloride 101 (100-108) mmol/L Carbon Dioxide 29 (21-32) mmol/L Anion Gap 12.7 (5.0-14.0) mmol/L BUN 33 H (7-18) mg/dL Creatinine 1.5 H (0.8-1.3) mg/dL Est Cr Clr Drug Dosing 36.04 mL/min Estimated GFR (MDRD) 45 L (>60) Glucose 75 (74-106) mg/dL POC Glucose 83 (74-106) mg/dL Calcium 8.4 L (8.5-10.1) mg/dL 09/26/21 09/26/21 09/26/21 Range/Units 11:36 13:45 17:07 WBC (4.5-11.0) K/uL RBC (4.30-5.90) M/uL Hgb 11.2 L (12.0-15.0) g/dL Hct (40.0-54.0) % MCV (80-98) fL MCH (27-31) pg MCHC (32-36) % Plt Count (150-400) K/uL Neut % (Auto) (36-66) % Lymph % (Auto) (24-44) % Ripley % (Auto) (2-6) % Eos % (Auto) (2-4) % Baso % (Auto) (0-1) % Sodium (140-148) mmol/L Potassium (3.6-5.2) mmol/L Chloride (100-108) mmol/L Carbon Dioxide (21-32) mmol/L Anion Gap (5.0-14.0) mmol/L BUN (7-18) mg/dL Creatinine (0.8-1.3) mg/dL Est Cr Clr Drug Dosing mL/min Estimated GFR (MDRD) (>60) Glucose (74-106) mg/dL POC Glucose 98 99 (74-106) mg/dL Calcium (8.5-10.1) mg/dL 09/26/21 Range/Units 17:07 WBC (4.5-11.0) K/uL RBC (4.30-5.90) M/uL Hgb (12.0-15.0) g/dL Hct (40.0-54.0) % MCV (80-98) fL MCH (27-31) pg MCHC (32-36) % Plt Count (150-400) K/uL Neut % (Auto) (36-66) % Lymph % (Auto) (24-44) % Ripley % (Auto) (2-6) % Eos % (Auto) (2-4) % Baso % (Auto) (0-1) % Sodium (140-148) mmol/L Potassium (3.6-5.2) mmol/L Chloride (100-108) mmol/L Carbon Dioxide (21-32) mmol/L Anion Gap (5.0-14.0) mmol/L BUN (7-18) mg/dL Creatinine (0.8-1.3) mg/dL Est Cr Clr Drug Dosing mL/min Estimated GFR (MDRD) (>60) Glucose (74-106) mg/dL POC Glucose 158 H (74-106) mg/dL Calcium (8.5-10.1) mg/dL Result Diagrams: 09/26/21 17:07 09/26/21 05:35 Sepsis Event Note - Evaluation Sepsis Screening Result: No Definite Risk - Focused Exam Vital Signs: Vital Signs Temp Temp Pulse Pulse Resp BP BP 09/26/21 16:55 96.4 F L 63 14 122/49 L 09/26/21 16:35 96.5 F L 65 14 122/46 L 09/26/21 16:03 96.3 F L 57 L 16 122/90 09/26/21 15:49 96.5 F L 61 14 170/69 H 09/26/21 15:34 96.5 F L 60 16 143/90 H 09/26/21 15:23 173/80 H 09/26/21 15:20 96.4 F L 63 18 173/80 H 09/26/21 15:05 97.5 F 64 14 127/55 L 09/26/21 15:00 64 14 116/48 L 09/26/21 14:55 51 L 14 108/48 L 09/26/21 14:50 67 14 103/49 L 09/26/21 14:45 97.5 F 63 14 99/51 L 09/26/21 13:47 96.9 F 60 18 141/55 H 09/26/21 09:57 96.1 F L 69 18 153/59 H 09/26/21 08:08 72 145/74 H 09/26/21 07:00 95.5 F L 72 18 145/74 H Pulse Ox 09/26/21 16:55 94 L 09/26/21 16:35 96 09/26/21 16:03 97 09/26/21 15:49 95 09/26/21 15:34 97 09/26/21 15:23 09/26/21 15:20 92 L 09/26/21 15:05 98 09/26/21 15:00 95 09/26/21 14:55 97 09/26/21 14:50 97 09/26/21 14:45 97 09/26/21 13:47 96 09/26/21 09:57 98 09/26/21 08:08 09/26/21 07:00 96 - Problem List Review Problem List Initiated/Reviewed/Updated: Yes - My Orders Last 24 Hours: My Active Orders 09/25/21 16:43 Antiembolic Devices [RC] .Routine Sequential Compression Device [OM.PC] Routine 09/25/21 17:00 Insulin Lispro [HumaLOG] See Protocol SUBCUT QIDACANDBED 09/25/21 21:00 Gabapentin [Neurontin] 600 mg PO BEDTIME Magnesium Oxide 400 mg PO BID Melatonin 6 mg PO BEDTIME Metoprolol Succinate [Toprol XL] 50 mg PO BID 09/26/21 08:00 Gabapentin [Neurontin] 300 mg PO BID@0800,1400 09/26/21 09:00 Citalopram [Celexa] 40 mg PO DAILY Liraglutide [Victoza] 1.2 mg SUBCUT DAILY Losartan [Cozaar] 12.5 mg PO DAILY Mirabegron [Myrbetriq] 50 mg PO DAILY atorvaSTATin [Lipitor] 40 mg PO DAILY 09/26/21 Dinner Soft Diet [DIET] 09/26/21 17:12 Convert IV to Saline Lock [OM.PC] Routine 09/27/21 05:11 HGB [HEMOGLOBIN] [HEME] AM 09/27/21 09:00 Clopidogrel [Plavix] 75 mg PO DAILY - Plan Plan:: ASSESSMENT AND PLAN GI BLEED-no evidence of active bleeding since admission, hemoglobin remains stable. Colonoscopy performed today shows no obvious source of active or recent bleeding. He was found to have a few small polyps that were removed and diverticulosis. 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 compensated at this time -Continue with metoprolol and ARB TYPE 2 DIABETES MELLITUS -Continue current dose of long-acting insulin -4 times daily glucometers -Moderate dose sliding scale Humalog CHRONIC KIDNEY DISEASE STAGE III -Closely monitor urine output and renal function STATUS POST TAVR -Continue to hold aspirin -Resume Plavix MAINTENANCE ISSUES -DVT prophylaxis; SCUDs -GI prophylaxis; omeprazole as above -Mcclellan catheter; not indicated -Nutrition; soft low residue diet -Nicotine dependence; not required CODE STATUS-DNR/DNI ADMISSION STATUS-patient will be admitted to inpatient status, expect at least a 2 night hospital stay for evaluation and management of problems as outlined above. At the time of this admission I do not reasonably expected evaluation and management of this problem will require more than a 96 hour hospital stay. DISPOSITION-anticipate discharge to home after the hospital stay. PRIMARY CARE PROVIDER-Dr. Coon
[2021-09-26] MEDS: Pantoprazole 40 MG Tab.CR PO SCH (18:00)
[2021-09-26] MEDS: Insulin Glargine,Human Rec. Analog 100 Units/ML 3 ML Pen SUBCUT SCH (21:22)
[2021-09-26] MEDS: Melatonin 3 MG Tab PO SCH (21:23)
[2021-09-27] MEDS: Insulin Lispro 100 Unit/ML 3 ML KwikPen SUBCUT SCH ×2 (07:37→11:38)
[2021-09-27] MEDS: Gabapentin 300 MG Cap PO SCH ×2 (07:43→13:07)
[2021-09-27] MEDS: Pantoprazole 40 MG Tab.CR PO SCH (07:43)
--- NOTE | 2021-09-27 08:10 | OR ---
DATE OF PROCEDURE: 09/26/2021 SURGEON: Soy France MD PROCEDURE: Colonoscopy. FINDINGS: 1. No old or new blood, no etiology, normal hemoglobin. 2. Ascending colon polyp, approximately 1 cm, removed using hot snare wire device. 3. Transverse colon polyp, approximately 5 mm, completely removed using cold biopsy forceps. 4. Transverse colon polyp #2, approximately 8 mm, completely removed using hot snare wire device. 5. Transverse colon polyp #3, approximately 5 mm, completely removed using cold biopsy forceps. COMPLICATION: None. ZIPPER MEASURER: None. ANESTHESIA: MAC. PREOPERATIVE DIAGNOSIS: Anemia. POSTOPERATIVE DIAGNOSIS: Anemia. RISKS: Risks, benefits, alternatives, and limitations including, but not limited to infection, bleeding, perforation, false positives, false negatives were explained to the patient and he wished to proceed. PROCEDURE IN DETAIL: The patient was placed in the left lateral decubitus position. Digital rectal exam was performed without abnormality. Scope was advanced atraumatically to the ileocecal valve. A photo was taken of appendiceal orifice. The scope was brought back to the ascending, transverse, descending colon, and retroflexed. No evidence of old or new blood. No masses. The aforementioned polyps were identified and completely removed. The patient did have some very mild diverticula. The prep was very poor with large amount of solid and liquid stool remaining. Greater than 10 minutes spent removing the scope. The patient tolerated the procedure well. Soy France MD /[id number]
[2021-09-27] MEDS: Citalopram 20 MG Tab PO SCH (08:37)
[2021-09-27] MEDS: Furosemide 40 MG/4 ML VIAL IVPUSH SCH ×2 (08:38→09:55)
[2021-09-27] MEDS: Mirabegron 25 MG Tab Extended Release PO SCH (08:38)
[2021-09-27] MEDS: atorvaSTATin 20 MG Tab PO SCH (08:38)
[2021-09-27] MEDS: Losartan 25 MG Tab PO SCH (08:39)
[2021-09-27] MEDS: Magnesium Oxide 400 MG Tab PO SCH (08:39)
[2021-09-27] MEDS: Liraglutide (rDNA Origin) 0.6 MG/0.1 ML 3 ML Pen SUBCUT SCH (08:40)
[2021-09-27] MEDS: Metoprolol Succinate 50 MG Tab.ER PO SCH (08:40)
[2021-09-27] MEDS ORDERED: Clopidogrel 75 MG Tab PO SCH (09:00)
[2021-09-27] MEDS ORDERED: Furosemide 40 MG Tab PO SCH (10:00)
--- NOTE | 2021-09-27 12:23 | PCM.DCSUM1 ---
Discharge Summary - Hospital Course Brief History: Mr. Lombardi is a 81-year-old gentleman who was admitted through the emergency department with weakness, nausea and vomiting, and a 3-day history of melenic stools. - Discharge Data Discharge Date: 09/27/21 Discharge Disposition: Home, Self-Care 01 Condition: Fair - Referral to Home Health Primary Care Physician: Anthony Coon MD - Discharge Diagnosis/Problem(s) (1) GI bleed SNOMED Code(s): 52842660 ICD Code: K92.2 - GASTROINTESTINAL HEMORRHAGE, UNSPECIFIED Status: Acute Current Visit: Yes (2) Acute blood loss anemia SNOMED Code(s): 712049501 ICD Code: D62 - ACUTE POSTHEMORRHAGIC ANEMIA Status: Acute Current Visit: Yes (3) Paroxysmal A-fib SNOMED Code(s): 981171106 ICD Code: I48.0 - PAROXYSMAL ATRIAL FIBRILLATION Status: Chronic Priority: Medium Current Visit: Yes (4) (HFpEF) heart failure with preserved ejection fraction SNOMED Code(s): 761987246 ICD Code: I50.30 - UNSPECIFIED DIASTOLIC (CONGESTIVE) HEART FAILURE Status: Chronic Priority: Medium Current Visit: Yes Problem Details: Will continue lasix and metoprolol. Will hold ARB at this time as no IV version Qualifiers: Heart failure chronicity: acute on chronic Qualified Code(s): I50.33 - Acute on chronic diastolic (congestive) heart failure (5) S/P TAVR (transcatheter aortic valve replacement) SNOMED Code(s): 7021456033070, 862959965, 056630398, 4919276988236 ICD Code: Z95.2 - PRESENCE OF PROSTHETIC HEART VALVE Status: Chronic Priority: High Current Visit: Yes Problem Details: will hold plavix and aspirin and losartan, will continue metoprolol IV (6) CKD (chronic kidney disease) stage 3, GFR 30-59 ml/min SNOMED Code(s): 129093829 ICD Code: N18.30 - CHRONIC KIDNEY DISEASE, STAGE 3 UNSPECIFIED Status: Chronic Priority: Medium Current Visit: Yes Problem Details: will continue lasix and monitoring CMP Qualifiers: Chronic kidney disease stage 3 subtype: stage 3a (GFR 45-59) Qualified Code(s): N18.31 - Chronic kidney disease, stage 3a - Patient Summary/Data Consults: Consultations 09/24/21 21:58 Consult to Physician [CONS] Routine Consulting Provider: Soy France Call Completed to Consulting Physician: Yes Reason for Consult: Upper GI Bleed Person Notified: Edilma Date Notified: 09/24/21 Time Notified: 21:30 Special Instructions: called by ED physician Hospital Course: Mr. Lombardi is a 81yo male with PMH of TAVR, DM2, HTN, HLD, who presents for 2 days of NV and melena. He has been on omeprazole but is on plavix and aspirin, and started having vomiting 2 days ago, now has just residual nausea. Patient also complains of 2 days of melena. He is vitally stable, but with recent TAVR and DM2 and other comorbid conditions it was felt that he should be brought in. As patient was also already on omeprazole and still is having symptoms of GI bleed, it was also felt he is potentially more complicated of a case. Additionally, patient complains of weakness. On admission he received IV fluids for hydration and serial hemoglobin levels were obtained. Hemoglobin did drop through hospital stay. At the time of admission was within normal range but at the time of discharge was down to 10.5. On the morning after admission he was seen and evaluated by Dr. France and EGD was performed. This showed no obvious source of recent bleeding or any other significant abnormalities. A colonoscopy prep was performed and the following day colonoscopy was performed by Dr. France. Colonoscopy showed evidence of diverticulosis as well as a few small polyps that were removed. There was no evidence of active bleeding or old blood within the colon and no obvious source of recent bleeding was identified. He had no further evidence of active bleeding noted through his hospital stay. Plavix was held at the time of admission and will be resumed on discharge. He will return to the emergency department if he notes any recurrent symptoms or evidence of bleeding. Follow-up appointment will be scheduled with his primary care provider within 1 week, CBC should be obtained at the time of follow-up appointment. Activity will be as tolerated and he will be on a soft low residue diet. - Patient Instructions Diet: GI Soft/Low Residue/Low Fiber Activity: As Tolerated Other/Special Instructions: Please schedule follow-up appointment with primary care provider within 1 week. CBC should be obtained at the time of follow-up appointment. - Discharge Plan *PRESCRIPTION DRUG MONITORING PROGRAM REVIEWED*: Not Applicable *COPY OF PRESCRIPTION DRUG MONITORING REPORT IN PATIENT KATI: Not Applicable Home Medications: Home Meds Insulin Aspart [NovoLOG] 3 units SUBCUT TID PRN 02/07/14 [History] atorvaSTATin Calcium [Atorvastatin Calcium] 40 mg PO DAILY 02/07/14 [History] metFORMIN [Glucophage] 500 mg PO BID 02/07/14 [History] Aspirin [Adult Low Dose Aspirin EC] 81 mg PO DAILY 05/26/14 [History] Ergocalciferol (Vitamin D2) [Vitamin D2] 1 cap PO ASDIRECTED 05/26/14 [History] Cholecalciferol (Vitamin D3) [Vitamin D3] 1,000 units PO DAILY 04/13/19 [History] Insulin Degludec [Tresiba Flextouch U-200] 44 units SUBCUT BEDTIME 04/13/19 [History] Liraglutide [Victoza] 1.2 mg SUBCUT DAILY 04/13/19 [History] Multivitamin [Multiple Vitamins] 1 tab PO DAILY 04/13/19 [History] Omeprazole 40 mg PO DAILY 04/13/19 [History] Citalopram Hydrobromide [Celexa] 40 mg PO DAILY 07/25/19 [History] Furosemide 40 mg PO DAILY 07/25/19 [History] Acetaminophen [Tylenol Extra Strength] 500 mg PO Q4HR PRN 08/25/20 [History] Ammonium Lactate [Amlactin 12% Lotion] 1 applic TOP DAILY 08/25/20 [History] Triamcinolone Acetonide [Kenalog 0.1% Crm] 1 applic TOP ASDIRECTED PRN 08/25/20 [History] Clopidogrel [Plavix] 75 mg PO DAILY 06/02/21 [History] Gabapentin [Neurontin] 300 mg PO BID 06/02/21 [History] Gabapentin [Neurontin] 600 mg PO BEDTIME 06/02/21 [History] Losartan [Cozaar] 12.5 mg PO DAILY 06/02/21 [History] Magnesium Chloride [Mag-64] 64 mg PO BID 06/02/21 [History] Melatonin 5 mg PO BEDTIME 06/02/21 [History] Metoprolol Succinate 50 mg PO BID 06/02/21 [History] Mirabegron [Myrbetriq] 50 mg PO DAILY 06/02/21 [History] Potassium Chloride 20 meq PO DAILY 06/02/21 [History] Acetaminophen/HYDROcodone [HYDROcodone-Acetaminophen 5-325 MG *] 1 - 2 tab PO Q6H PRN 2 Days #10 tab 07/23/21 [Rx] methocarbamoL [Methocarbamol] 500 mg PO Q8H PRN 10 Days #30 tablet 07/23/21 [Rx] Metoprolol Succinate [Toprol Xl] 50 mg PO BID 09/25/21 [History] Patient Handouts: Fall Prevention in the Home, Adult, [id number], Gastrointestinal Bleeding, [id number] Referrals: Anthony Coon MD [Primary Care Provider] - 10/04/21 1:30 pm - Discharge Summary/Plan Comment DC Time >30 min.: No Total # of Minutes for Discharge Time: 20 - Patient Data Vitals - Most Recent: Last Vital Signs Temp 96.6 F L 09/27/21 11:03 Pulse 59 L 09/27/21 11:03 Resp 16 09/27/21 11:03 BP 155/57 H 09/27/21 11:03 Pulse Ox 95 09/27/21 11:03 Weight - Most Recent: 223 lb I&O - Last 24 hours: Intake & Output 09/26/21 09/27/21 09/27/21 22:59 06:59 14:59 Intake Total 1309 720 840 Balance 1309 720 840 Lab Results - Last 24 hrs: Laboratory Results - last 24 hr 09/26/21 09/26/21 09/26/21 Range/Units 13:45 17:07 17:07 Hgb 11.2 L (12.0-15.0) g/dL POC Glucose 99 158 H (74-106) mg/dL 09/26/21 09/27/21 09/27/21 Range/Units 20:50 05:51 07:34 Hgb 10.5 L (12.0-15.0) g/dL POC Glucose 311 H 133 H (74-106) mg/dL 09/27/21 Range/Units 11:27 Hgb (12.0-15.0) g/dL POC Glucose 267 H (74-106) mg/dL Med Orders - Current: Current Medications Acetaminophen (Acetaminophen 650 Mg Supp) 650 mg RECTAL Q4H PRN PRN Reason: Mild pain/fever Hydrocodone Bitart/Acetaminophen (Acetaminophen/Hydrocodone 325-5 Mg Tab) 1 - 2 tab PO Q6H PRN PRN Reason: Pain (severe 7-10) Last Admin: 09/25/21 17:32 Dose: 1 tab Documented by: Atorvastatin Calcium (Atorvastatin 20 Mg Tab) 40 mg PO DAILY [facility] Last Admin: 09/27/21 08:38 Dose: 40 mg Documented by: Citalopram Hydrobromide (Citalopram 20 Mg Tab) 40 mg PO DAILY [facility] Last Admin: 09/27/21 08:37 Dose: 40 mg Documented by: Clopidogrel Bisulfate (Clopidogrel 75 Mg Tab) 75 mg PO DAILY [facility] Last Admin: 09/27/21 08:39 Dose: 75 mg Documented by: Dextrose (Glucose Gel 15 Gm In 37.5 Gm Tube) 15 gm PO ONETIME PRN PRN Reason: Hypoglycemia Dextrose/Water (50% Dextrose In Water 50 Ml Syringe) 50 ml IVPUSH ASDIRECTED PRN PRN Reason: Hypoglycemia Dextrose/Water (50% Dextrose In Water 50 Ml Syringe) 50 ml IV ONETIME PRN PRN Reason: Hypoglycemia Furosemide (Furosemide 40 Mg Tab) 40 mg PO DAILY [facility] Last Admin: 09/27/21 10:04 Dose: 40 mg Documented by: Gabapentin (Gabapentin 300 Mg Cap) 300 mg PO BID@0800,1400 [facility] Last Admin: 09/27/21 07:43 Dose: 300 mg Documented by: Gabapentin (Gabapentin 300 Mg Cap) 600 mg PO BEDTIME [facility] Last Admin: 09/26/21 21:23 Dose: 600 mg Documented by: Glucagon (Glucagon,Human Recombinant 1 Mg Vial) 1 mg IM ASDIRECTED PRN PRN Reason: Hypoglycemia Promethazine HCl 6.25 mg/ (Sodium Chloride) 50.25 mls @ 200 mls/hr IV Q6H PRN PRN Reason: Nausea/Vomiting Insulin Glargine (Insulin Glargine,Human Rec. Analog 100 Units/Ml 3 Ml Pen) 22 units SUBCUT BEDTIME [facility] Last Admin: 09/26/21 21:22 Dose: 22 units Documented by: Insulin Human Lispro (Insulin Lispro 100 Unit/Ml 3 Ml Kwikpen) 0 unit SUBCUT QIDACANDBED [facility]; Protocol Last Admin: 09/27/21 11:38 Dose: 6 unit Documented by: Liraglutide (Liraglutide (Rdna Origin) 0.6 Mg/0.1 Ml 3 Ml Pen) 1.2 mg SUBCUT DAILY [facility] Last Admin: 09/27/21 08:40 Dose: 1.2 mg Documented by: Losartan Potassium (Losartan 25 Mg Tab) 12.5 mg PO DAILY [facility] Last Admin: 09/27/21 08:39 Dose: 12.5 mg Documented by: Magnesium Oxide (Magnesium Oxide 400 Mg Tab) 400 mg PO BID [facility] Last Admin: 09/27/21 08:39 Dose: 400 mg Documented by: Melatonin (Melatonin 3 Mg Tab) 9 mg PO BEDTIME PRN PRN Reason: Insomnia Last Admin: 09/25/21 01:58 Dose: 9 mg Documented by: Melatonin (Melatonin 3 Mg Tab) 6 mg PO BEDTIME [facility] Last Admin: 09/26/21 21:23 Dose: 6 mg Documented by: Metoprolol Succinate (Metoprolol Succinate 50 Mg Tab.Er) 50 mg PO BID [facility] Last Admin: 09/27/21 08:40 Dose: 50 mg Documented by: Mirabegron (Mirabegron 25 Mg Tab Extended Release) 50 mg PO DAILY [facility] Last Admin: 09/27/21 08:38 Dose: 50 mg Documented by: Morphine Sulfate (Morphine 2 Mg/Ml Syringe) 2 mg IVPUSH Q2H PRN PRN Reason: Pain (severe 7-10) Last Admin: 09/25/21 13:13 Dose: 2 mg Documented by: Ondansetron HCl (Ondansetron 4 Mg/2 Ml Sdv) 4 mg IV Q6H PRN PRN Reason: Nausea/Vomiting Pantoprazole Sodium (Pantoprazole 40 Mg Tab.Cr) 40 mg PO ACBREAKFAST [facility] Last Admin: 09/27/21 07:43 Dose: 40 mg Documented by: Discontinued Medications Bisacodyl (Bisacodyl 5 Mg Tab) 10 mg PO ONETIME ONE Stop: 09/25/21 16:01 Last Admin: 09/25/21 16:00 Dose: 10 mg Documented by: Bisacodyl (Bisacodyl 5 Mg Tab) 10 mg PO ONETIME ONE Stop: 09/25/21 20:01 Last Admin: 09/25/21 20:17 Dose: 10 mg Documented by: Famotidine (Famotidine 20 Mg/2 Ml Sdv) 20 mg IVPUSH DAILY [facility] Last Admin: 09/26/21 09:39 Dose: 20 mg Documented by: Fentanyl (Fentanyl 100 Mcg/2 Ml Sdv) Confirm Administered Dose 100 mcg .ROUTE .STK-MED ONE Stop: 09/26/21 13:50 Furosemide (Furosemide 40 Mg/4 Ml Vial) 40 mg IVPUSH DAILY [facility] Last Admin: 09/27/21 09:55 Dose: Not Given Documented by: Pantoprazole Sodium 80 mg/ (Sodium Chloride) 100 mls @ 200 mls/hr IV .BOLUS [facility] Last Admin: 09/24/21 21:24 Dose: 200 mls/hr Documented by: Potassium Chloride/Sodium Chloride (Normal Saline With 20 Meq Kcl) 1,000 mls @ 75 mls/hr IV ASDIRECTED [facility] Last Admin: 09/26/21 13:46 Dose: 75 mls/hr Documented by: Insulin Glargine (Insulin Glargine,Human Rec. Analog 100 Units/Ml 3 Ml Pen) 22 units SUBCUT BEDTIME [facility] Insulin Human Lispro (Insulin Lispro 100 Unit/Ml 3 Ml Kwikpen) 3 unit SUBCUT TIDMEALS PRN PRN Reason: hyperglycemia Metoprolol Succinate (Metoprolol Succinate 25 Mg Tab.Er) 25 mg PO BID [facility] Metoprolol Tartrate (Metoprolol Tartrate 5 Mg/5 Ml Sdv) 2.5 mg IVPUSH Q6H [facility] Last Admin: 09/25/21 16:28 Dose: Not Given Documented by: Non-Formulary Medication (Insulin Degludec [Tresiba Flextouch U-200]) 44 units SUBCUT BEDTIME [facility] Polyethylene Glycol (Polyethylene Glycol 3350 Powder 238 Gm Bot) 238 gm PO ONETIME ONE Stop: 09/25/21 17:01 Last Admin: 09/25/21 16:56 Dose: 238 gram Documented by: Propofol (Propofol 200 Mg/20 Ml Sdv) Confirm Administered Dose 200 mg .ROUTE .STK-MED ONE Stop: 09/25/21 12:01 Propofol (Propofol 200 Mg/20 Ml Sdv) Confirm Administered Dose 200 mg .ROUTE .STK-MED ONE Stop: 09/26/21 13:50 Propofol (Propofol 200 Mg/20 Ml Sdv) Confirm Administered Dose 200 mg .ROUTE .STK-MED ONE Stop: 09/26/21 14:39 - Exam General: Reports: Alert, Oriented, Cooperative, No Acute Distress Lungs: Reports: Clear to Auscultation, Normal Respiratory Effort Cardiovascular: Reports: Regular Rate, Regular Rhythm, No Murmurs GI/Abdominal Exam: Soft, Non-Tender, No Organomegaly, No Distention Extremities: Non-Tender, No Pedal Edema
== END 2021-09-27 13:45 | disposition home or self-care (01) | DRG 377 ==
LOC: JP.ED 19:18 → JP.MS 21:58
PROVIDERS: ADMIT Family Medicine; ATTEND Hospitalist
PROC: 0DB48ZX Excision of Esophagogastric Junction, Via Natural or Artificial Opening Endoscopic, Diagnostic (ICD-10-PCS; 2021-09-25)
PROC: 0DBK8ZZ Excision of Ascending Colon, Via Natural or Artificial Opening Endoscopic (ICD-10-PCS; principal; 2021-09-26)
PROC: 0DBL8ZZ Excision of Transverse Colon, Via Natural or Artificial Opening Endoscopic (ICD-10-PCS; 2021-09-26)
PROC: 0DBL8ZZ Excision of Transverse Colon, Via Natural or Artificial Opening Endoscopic (ICD-10-PCS; 2021-09-26)
PROC: 0DBL8ZZ Excision of Transverse Colon, Via Natural or Artificial Opening Endoscopic (ICD-10-PCS; 2021-09-26)
DX: K92.2 Gastrointestinal hemorrhage, unspecified (principal); K57.31 Diverticulosis of large intestine without perforation or abscess with bleeding; I50.33 Acute on chronic diastolic (congestive) heart failure; D62 Acute posthemorrhagic anemia; E11.69 Type 2 diabetes mellitus with other specified complication; I13.0 Hypertensive heart and chronic kidney disease with heart failure and stage 1 through stage 4 chronic kidney disease, or unspecified chronic kidney disease; I73.9 Peripheral vascular disease, unspecified; K63.5 Polyp of colon; I48.0 Paroxysmal atrial fibrillation; N18.31 Chronic kidney disease, stage 3a; E78.5 Hyperlipidemia, unspecified; E11.22 Type 2 diabetes mellitus with diabetic chronic kidney disease; H54.7 Unspecified visual loss; Z20.822 Contact with and (suspected) exposure to COVID-19; R42 Dizziness and giddiness; F32.9 Major depressive disorder, single episode, unspecified; I25.10 Atherosclerotic heart disease of native coronary artery without angina pectoris; E11.40 Type 2 diabetes mellitus with diabetic neuropathy, unspecified; E78.00 Pure hypercholesterolemia, unspecified; Z85.46 Personal history of malignant neoplasm of prostate; K21.9 Gastro-esophageal reflux disease without esophagitis; M19.90 Unspecified osteoarthritis, unspecified site; E11.42 Type 2 diabetes mellitus with diabetic polyneuropathy; G89.29 Other chronic pain; F32.A Depression, unspecified; K57.90 Diverticulosis of intestine, part unspecified, without perforation or abscess without bleeding; Z95.2 Presence of prosthetic heart valve; Z79.4 Long term (current) use of insulin; Z79.899 Other long term (current) drug therapy; Z86.718 Personal history of other venous thrombosis and embolism; I25.2 Old myocardial infarction; Z95.5 Presence of coronary angioplasty implant and graft; Z90.49 Acquired absence of other specified parts of digestive tract; Z98.49 Cataract extraction status, unspecified eye; Z85.820 Personal history of malignant melanoma of skin; Z79.02 Long term (current) use of antithrombotics/antiplatelets; Z79.82 Long term (current) use of aspirin
CPT/HCPCS: 36415; 80053; 82272; 85025; 85610; 85730; 86850; 86900; 86901; 96365; 99285; C9113; U0002; 80048; 82947; 85018; 88305; A9270-GY; J1815; J1815-GY; J1940; J2270; J2704; J3010; J3480; J3490

== ENCOUNTER 2021-10-22 20:34 | Emergency (ER) | payer MEDICARE, OTHER ==
--- NOTE | 2021-10-22 21:10 | EDM.PDOC ---
ED HPI GENERAL MEDICAL PROBLEM - General Chief Complaint: General Stated Complaint: dizzy and disoriented Time Seen by Provider: 10/22/21 21:10 Source of Information: Reports: Patient, Family History Limitations: Reports: No Limitations - History of Present Illness INITIAL COMMENTS - FREE TEXT/NARRATIVE: 81-year-old male who is anticoagulated, presents with 2 seconds of "rolling vision". No headache any different than his chronic mild headaches, no fevers or chills, no shortness of breath or nausea or vomiting. This was followed by some lightheaded sensation, and he thought maybe his glucose was low so he checked it and it was 140. He had no diaphoresis, pallor, diarrhea or other symptoms. He was concerned he may be having a stroke so he came in to be checked, he now feels fine. Symptoms only lasted 2 or 3 seconds. His said she put him on the monitor and his pulse was only "33". Onset: Sudden Duration: Other (Symptoms were very brief, just a few seconds) Associated Symptoms: Reports: Malaise, Other (Followed by some mild dizziness and anxiety). Denies: Confusion, Chest Pain, Cough, Fever/Chills, Shortness of Breath, Weakness - Related Data Allergies Allergy/AdvReac Type Severity Reaction Status Date / Time No Known Allergies Allergy Verified 10/22/21 21:01 Home Meds: Home Meds Insulin Aspart [NovoLOG] 3 units SUBCUT TID PRN 02/07/14 [History] atorvaSTATin Calcium [Atorvastatin Calcium] 40 mg PO DAILY 02/07/14 [History] metFORMIN [Glucophage] 500 mg PO BID 02/07/14 [History] Aspirin [Adult Low Dose Aspirin EC] 81 mg PO DAILY 05/26/14 [History] Ergocalciferol (Vitamin D2) [Vitamin D2] 1 cap PO ASDIRECTED 05/26/14 [History] Cholecalciferol (Vitamin D3) [Vitamin D3] 1,000 units PO DAILY 04/13/19 [History] Insulin Degludec [Tresiba Flextouch U-200] 44 units SUBCUT BEDTIME 04/13/19 [History] Liraglutide [Victoza] 1.2 mg SUBCUT DAILY 04/13/19 [History] Multivitamin [Multiple Vitamins] 1 tab PO DAILY 04/13/19 [History] Omeprazole 40 mg PO DAILY 04/13/19 [History] Citalopram Hydrobromide [Celexa] 40 mg PO DAILY 07/25/19 [History] Furosemide 40 mg PO DAILY 07/25/19 [History] Acetaminophen [Tylenol Extra Strength] 500 mg PO Q4HR PRN 08/25/20 [History] Ammonium Lactate [Amlactin 12% Lotion] 1 applic TOP DAILY 08/25/20 [History] Triamcinolone Acetonide [Kenalog 0.1% Crm] 1 applic TOP ASDIRECTED PRN 08/25/20 [History] Clopidogrel [Plavix] 75 mg PO DAILY 06/02/21 [History] Gabapentin [Neurontin] 300 mg PO BID 06/02/21 [History] Gabapentin [Neurontin] 600 mg PO BEDTIME 06/02/21 [History] Losartan [Cozaar] 12.5 mg PO DAILY 06/02/21 [History] Magnesium Chloride [Mag-64] 64 mg PO BID 06/02/21 [History] Melatonin 5 mg PO BEDTIME 06/02/21 [History] Mirabegron [Myrbetriq] 50 mg PO DAILY 06/02/21 [History] Potassium Chloride 20 meq PO DAILY 06/02/21 [History] Acetaminophen/HYDROcodone [HYDROcodone-Acetaminophen 5-325 MG *] 1 - 2 tab PO Q6H PRN 2 Days #10 tab 07/23/21 [Rx] methocarbamoL [Methocarbamol] 500 mg PO Q8H PRN 10 Days #30 tablet 07/23/21 [Rx] Metoprolol Succinate [Toprol Xl] 50 mg PO BID 09/25/21 [History] Past Medical History HEENT History: Reports: Cataract, Impaired Vision Cardiovascular History: Reports: Arrhythmia, Blood Clots/VTE/DVT, CAD, Heart Murmur, High Cholesterol, Hypertension, [place], SOB on Exertion, Stents Respiratory History: Reports: Other (See Below) Other Respiratory History: ANDREWS LUNG Gastrointestinal History: Reports: GERD Genitourinary History: Reports: Urinary Incontinence Musculoskeletal History: Reports: Arthritis, Back Pain, Chronic Neurological History: Reports: Neuropathy, Diabetic, Vertigo Psychiatric History: Reports: Depression Endocrine/Metabolic History: Reports: Diabetes, Type II, IDDM Oncologic (Cancer) History: Reports: Malignant Melanoma, Prostate Dermatologic History: Reports: Melanoma, Other (See Below) Other Dermatologic History: DRY SKIN - Infectious Disease History Infectious Disease History: Reports: Chicken Pox, Measles, Mumps - Past Surgical History Head Surgeries/Procedures: Reports: None HEENT Surgical History: Reports: Adenoidectomy, Cataract Surgery, Eye Surgery, Tonsillectomy Cardiovascular Surgical History: Reports: Coronary Artery Stent Respiratory Surgical History: Reports: None GI Surgical History: Reports: Cholecystectomy, Colonoscopy, EGD, Hernia, Abdominal Male Surgical History: Reports: TURP-Transurethral Resection of Prostate, Other (See Below) Other Male Surgeries/Procedures: bladder repair Endocrine Surgical History: Reports: None Neurological Surgical History: Reports: Discectomy, Laminectomy, Lumbar Spine Musculoskeletal Surgical History: Reports: Arthroscopic Knee, Other (See Below) Other Musculoskeletal Surgeries/Procedures:: partial knee replacements, neck surg twice, back surg 3 times Oncologic Surgical History: Reports: None Dermatological Surgical History: Reports: Skin Biopsy Social & Family History - Family History Family Medical History: No Pertinent Family History - Tobacco Use Tobacco Use Status *Q: Never Tobacco User - Caffeine Use Caffeine Use: Reports: Coffee, Soda Other Caffeine Use: 3-4 cups daily Caffeine Use Comment: several cups to a pot a day - Recreational Drug Use Recreational Drug Use: No ED ROS GENERAL - Review of Systems Review Of Systems: See Below Constitutional: Reports: No Symptoms HEENT: Reports: Vision Change (Rolling vision as mentioned in HPI, no blurriness or double vision) Respiratory: Reports: No Symptoms Cardiovascular: Reports: No Symptoms GI/Abdominal: Reports: No Symptoms : Reports: No Symptoms Musculoskeletal: Reports: No Symptoms Neurological: Reports: Headache (Chronic mild headaches, nothing new) Psychiatric: Reports: No Symptoms ED EXAM, GENERAL - Physical Exam Exam: See Below Exam Limited By: No Limitations General Appearance: Alert, No Apparent Distress Eye Exam: Bilateral Eye: Normal Inspection (His eye exam is normal, no nystagmus) Head: Atraumatic Neck: Supple, Non-Tender Respiratory/Chest: No Respiratory Distress, Lungs Clear Cardiovascular: Regular Rate, Rhythm Extremities: Normal Inspection. No: Pedal Edema Neurological: Alert, Oriented, No Motor/Sensory Deficits Psychiatric: Anxious Skin Exam: Warm, Dry Course - Vital Signs Last Recorded V/S: Last Vital Signs Temp 98.0 F 10/22/21 20:59 Pulse 48 L 10/22/21 20:59 Resp 18 10/22/21 20:59 BP 136/73 10/22/21 20:59 Pulse Ox 98 10/22/21 20:59 - Re-Assessments/Exams Free Text/Narrative Re-Assessment/Exam: 10/23/21 00:13 Patient can ambulate without difficulty and he has no symptoms, he may have had a vagal reaction or brief vertiginous sensation from a labyrinthitis or otolith issue. But the symptoms were too rapid for a TIA or central ischemic event. Glucose was checked at home and was normal. No further work-up necessary at this time but the patient can return if symptoms recur. Departure - Departure Time of Disposition: 22:00 Disposition: Home, Self-Care 01 Clinical Impression: Vertigo - Discharge Information Instructions: Vertigo, [id number] Referrals: Anthony Coon MD [Primary Care Provider] - Forms: ED Department Discharge Care Plan Goals: Continue your current medications, increase activity as tolerated and return if symptoms recur and are persistent or you develop other concerns. Sepsis Event Note (ED) - Evaluation Sepsis Screening Result: No Definite Risk - Focused Exam Vital Signs: Vital Signs Temp Pulse Resp BP Pulse Ox 10/22/21 20:59 98.0 F 48 L 18 136/73 98
== END 2021-10-22 22:00 | disposition home or self-care (01) ==
LOC: JP.ED 20:34
DX: R42 Dizziness and giddiness (principal); I25.10 Atherosclerotic heart disease of native coronary artery without angina pectoris; E78.00 Pure hypercholesterolemia, unspecified; I10 Essential (primary) hypertension; I25.2 Old myocardial infarction; K21.9 Gastro-esophageal reflux disease without esophagitis; E11.40 Type 2 diabetes mellitus with diabetic neuropathy, unspecified; Z79.82 Long term (current) use of aspirin; Z79.02 Long term (current) use of antithrombotics/antiplatelets; Z79.4 Long term (current) use of insulin; Z79.899 Other long term (current) drug therapy
CPT/HCPCS: 99283-25

== ENCOUNTER 2021-12-15 16:12 | Emergency (ER) | payer MEDICARE, OTHER ==
[2021-12-15] MEDS ORDERED: Metoprolol Succinate 50 MG Tab.ER PO ONE (17:11)
== END 2021-12-15 17:56 | disposition home or self-care (01) ==
LOC: JP.ED 16:12
DX: I49.3 Ventricular premature depolarization (principal); R42 Dizziness and giddiness; I25.10 Atherosclerotic heart disease of native coronary artery without angina pectoris; E78.00 Pure hypercholesterolemia, unspecified; I10 Essential (primary) hypertension; I25.2 Old myocardial infarction; K21.9 Gastro-esophageal reflux disease without esophagitis; M19.90 Unspecified osteoarthritis, unspecified site; E11.40 Type 2 diabetes mellitus with diabetic neuropathy, unspecified; Z79.4 Long term (current) use of insulin; Z79.82 Long term (current) use of aspirin; Z79.01 Long term (current) use of anticoagulants; Z79.899 Other long term (current) drug therapy
CPT/HCPCS: 99283; A9270; 99284

== ENCOUNTER 2021-12-22 22:23 | Emergency (ER) | payer MEDICARE, OTHER ==
[2021-12-23] MEDS: Methocarbamol 500 MG Tab PO ONE (00:14)
[2021-12-23 00:56] LABS: CORONAVIRUS COVID-19 NAA POSITIVE (NEGATIVE)
== END 2021-12-23 01:10 | disposition home or self-care (01) ==
LOC: JP.ED 22:23
DX: G89.29 Other chronic pain (principal); M54.50 Low back pain, unspecified; I25.10 Atherosclerotic heart disease of native coronary artery without angina pectoris; E78.00 Pure hypercholesterolemia, unspecified; I10 Essential (primary) hypertension; I25.2 Old myocardial infarction; K21.9 Gastro-esophageal reflux disease without esophagitis; E11.40 Type 2 diabetes mellitus with diabetic neuropathy, unspecified; Z79.4 Long term (current) use of insulin; Z79.899 Other long term (current) drug therapy; Z79.01 Long term (current) use of anticoagulants
CPT/HCPCS: 0241U; 99283; A9270-GY

== ENCOUNTER 2022-04-03 12:44 | Emergency (ER) | payer MEDICARE, OTHER ==
[2022-04-03 14:08] LABS: TROPONIN I HIGH SENSITIVITY 10.4 pg/mL (<=60.3)
== END 2022-04-03 14:25 | disposition home or self-care (01) ==
LOC: JP.ED 12:44
DX: I49.3 Ventricular premature depolarization (principal); I10 Essential (primary) hypertension; E78.00 Pure hypercholesterolemia, unspecified; I25.2 Old myocardial infarction; K21.9 Gastro-esophageal reflux disease without esophagitis; Z79.4 Long term (current) use of insulin; Z79.899 Other long term (current) drug therapy
CPT/HCPCS: 36415; 80048; 84484; 85025; 93005; 99285-25

== ENCOUNTER 2023-06-27 10:47 | Inpatient (IN) | payer MEDICARE, OTHER ==
[2023-06-27] MEDS ORDERED: Ondansetron 4 MG Tab.DIS PO PRN (11:51)
[2023-06-27] MEDS ORDERED: Magnesium Hydroxide 400 MG/5 ML Susp 30 ML Cup PO PRN (11:51)
[2023-06-27] MEDS ORDERED: Ondansetron 4 MG/2 ML SDV IV PRN (11:51)
[2023-06-27] MEDS ORDERED: Sodium Chloride 0.9% 10 ML Syringe FLUSH PRN (11:51)
[2023-06-27] MEDS ORDERED: Acetaminophen 325 MG Tab PO PRN (11:51)
[2023-06-27 12:10] LABS: HEMATOCRIT 31.1 % (38.4-49.7); HEMOGLOBIN 9.7 g/dL (12.9-16.9); MEAN CORPUSCULAR HEMOGLOBIN 25.7 pg (31.6-35.5); MEAN CORPUSCULAR HGB CONC 31.2 g/dL (31.6-35.5); MEAN CORPUSCULAR VOLUME 82.5 fL (81.4-99.0); RED BLOOD CELL COUNT 3.77 M/uL (4.14-5.76)
[2023-06-27] MEDS ORDERED: Furosemide 40 MG/4 ML VIAL IVPUSH ONE (12:30)
[2023-06-27 12:33] LABS: ANION GAP 14.5 mmol/L (5.0-14.0); C-REACTIVE PROTEIN 0.24 mg/dL (0.0-0.3); CALCIUM 8.8 mg/dL (8.5-10.1); CREATININE 1.8 mg/dL (0.8-1.3); EST CRCL DRUG DOSING (CG) 29.04 mL/min; MAGNESIUM 1.8 mg/dL (1.8-2.4); POTASSIUM,K 4.5 mmol/L (3.6-5.2); TROPONIN I HIGH SENSITIVITY 14.8 pg/mL (<=60.3)
[2023-06-27] MEDS: Insulin Lispro 100 Unit/ML 3 ML KwikPen SUBCUT SCH ×2 (17:11→21:30)
[2023-06-27] MEDS: Gabapentin 300 MG Cap PO SCH ×2 (17:12→21:23)
[2023-06-27] MEDS ORDERED: Insulin Glargine,Human Rec. Analog 100 Units/ML 3 ML Pen SUBCUT SCH (21:00)
[2023-06-27] MEDS: Apixaban 5 MG Tab PO SCH (21:22)
[2023-06-27] MEDS: Melatonin 3 MG Tab PO SCH (21:22)
[2023-06-27] MEDS: Aspirin 81 MG Tab.EC PO SCH (21:22)
[2023-06-27] MEDS: Metoprolol Succinate 50 MG Tab.ER PO SCH (21:23)
[2023-06-28] MEDS: Insulin Lispro 100 Unit/ML 3 ML KwikPen SUBCUT SCH ×4 (07:40→22:04)
[2023-06-28] MEDS ORDERED: Furosemide 40 MG/4 ML VIAL IVPUSH ONE (08:02)
[2023-06-28] MEDS ORDERED: Furosemide 40 MG, Furosemide 20 MG IVPUSH ONE ×2 (08:15)
[2023-06-28] MEDS: Apixaban 5 MG Tab PO SCH ×2 (08:36→22:09)
[2023-06-28] MEDS: Pantoprazole 40 MG Tab.CR PO SCH (08:36)
[2023-06-28] MEDS: atorvaSTATin 20 MG Tab PO SCH (08:37)
[2023-06-28] MEDS: Citalopram 20 MG Tab PO SCH (08:37)
[2023-06-28] MEDS: Mirabegron 25 MG Tab Extended Release PO SCH (08:37)
[2023-06-28] MEDS: Diltiazem 120 MG Cap.CD PO SCH (08:37)
[2023-06-28] MEDS: Metoprolol Succinate 50 MG Tab.ER PO SCH ×2 (08:41→22:06)
[2023-06-28] MEDS: Gabapentin 300 MG Cap PO SCH ×3 (08:42→22:10)
[2023-06-28] MEDS: Liraglutide (rDNA Origin) 0.6 MG/0.1 ML 3 ML Pen SUBCUT SCH (08:44)
[2023-06-28] MEDS ORDERED: Bumetanide 2.5 MG/10 ML MDV IVPUSH ONE (11:30)
[2023-06-28] MEDS: Aspirin 81 MG Tab.EC PO SCH (22:09)
[2023-06-28] MEDS: Melatonin 3 MG Tab PO SCH (22:09)
[2023-06-28] MEDS: Insulin Glargine,Human Rec. Analog 100 Units/ML 3 ML Pen SUBCUT SCH (22:10)
[2023-06-28] MEDS: Sennosides/Docusate Sodium 50-8.6 MG Tab PO PRN (22:12)
[2023-06-29 05:28] LABS: CALCIUM 8.5 mg/dL (8.5-10.1); CREATININE 1.5 mg/dL (0.8-1.3); EST CRCL DRUG DOSING (CG) 35.03 mL/min; POTASSIUM,K 3.7 mmol/L (3.6-5.2)
[2023-06-29 05:29] LABS: ANION GAP 9.7 mmol/L (5.0-14.0)
[2023-06-29] MEDS: Insulin Lispro 100 Unit/ML 3 ML KwikPen SUBCUT SCH ×4 (08:05→21:46)
[2023-06-29] MEDS: Pantoprazole 40 MG Tab.CR PO SCH (08:07)
[2023-06-29] MEDS: Citalopram 20 MG Tab PO SCH (08:07)
[2023-06-29] MEDS: Mirabegron 25 MG Tab Extended Release PO SCH (08:07)
[2023-06-29] MEDS: Apixaban 5 MG Tab PO SCH ×2 (08:07→21:45)
[2023-06-29] MEDS: atorvaSTATin 20 MG Tab PO SCH (08:07)
[2023-06-29] MEDS: Metoprolol Succinate 50 MG Tab.ER PO SCH ×2 (08:08→21:47)
[2023-06-29] MEDS: Diltiazem 120 MG Cap.CD PO SCH (08:08)
[2023-06-29] MEDS: Gabapentin 300 MG Cap PO SCH ×3 (08:08→21:45)
[2023-06-29] MEDS: Liraglutide (rDNA Origin) 0.6 MG/0.1 ML 3 ML Pen SUBCUT SCH (08:08)
[2023-06-29] MEDS ORDERED: Bumetanide 1 MG/4 ML MDV IVPUSH ONE ×2 (08:29→17:00)
[2023-06-29] MEDS ORDERED: Bumetanide 2.5 MG/10 ML MDV IVPUSH ONE ×2 (08:45→17:00)
[2023-06-29] MEDS: Sennosides/Docusate Sodium 50-8.6 MG Tab PO PRN (09:45)
[2023-06-29] MEDS ORDERED: Polyethylene Glycol 3350 Powder 17 GM Packet PO PRN (14:25)
[2023-06-29] MEDS: Insulin Glargine,Human Rec. Analog 100 Units/ML 3 ML Pen SUBCUT SCH (21:45)
[2023-06-29] MEDS: Aspirin 81 MG Tab.EC PO SCH (21:45)
[2023-06-29] MEDS: Melatonin 3 MG Tab PO SCH (21:45)
[2023-06-30 04:52] LABS: CALCIUM 8.6 mg/dL (8.5-10.1); CREATININE 1.3 mg/dL (0.8-1.3); EST CRCL DRUG DOSING (CG) 40.42 mL/min; POTASSIUM,K 3.6 mmol/L (3.6-5.2)
[2023-06-30 05:06] LABS: ANION GAP 8.6 mmol/L (5.0-14.0)
[2023-06-30] MEDS: Insulin Lispro 100 Unit/ML 3 ML KwikPen SUBCUT SCH ×4 (07:27→21:58)
[2023-06-30] MEDS ORDERED: Bumetanide 2.5 MG/10 ML MDV IVPUSH SCH (09:00)
[2023-06-30] MEDS: Pantoprazole 40 MG Tab.CR PO SCH (09:05)
[2023-06-30] MEDS: Citalopram 20 MG Tab PO SCH (09:06)
[2023-06-30] MEDS: Diltiazem 120 MG Cap.CD PO SCH (09:06)
[2023-06-30] MEDS: Gabapentin 300 MG Cap PO SCH ×3 (09:07→21:57)
[2023-06-30] MEDS: atorvaSTATin 20 MG Tab PO SCH (09:07)
[2023-06-30] MEDS: Metoprolol Succinate 50 MG Tab.ER PO SCH ×2 (09:07→21:52)
[2023-06-30] MEDS: Mirabegron 25 MG Tab Extended Release PO SCH (09:07)
[2023-06-30] MEDS: Apixaban 5 MG Tab PO SCH ×2 (09:07→21:52)
[2023-06-30] MEDS: Liraglutide (rDNA Origin) 0.6 MG/0.1 ML 3 ML Pen SUBCUT SCH (09:08)
[2023-06-30] MEDS: Bumetanide 1 MG Tab PO SCH (16:49)
[2023-06-30] MEDS: Melatonin 3 MG Tab PO SCH (21:51)
[2023-06-30] MEDS: Aspirin 81 MG Tab.EC PO SCH (21:52)
[2023-06-30] MEDS: Insulin Glargine,Human Rec. Analog 100 Units/ML 3 ML Pen SUBCUT SCH (21:57)
[2023-07-01 06:09] LABS: CALCIUM 8.5 mg/dL (8.5-10.1); CREATININE 1.4 mg/dL (0.8-1.3); EST CRCL DRUG DOSING (CG) 37.53 mL/min; POTASSIUM,K 3.7 mmol/L (3.6-5.2)
[2023-07-01 06:12] LABS: ANION GAP 7.7 mmol/L (5.0-14.0)
[2023-07-01] MEDS: Bumetanide 1 MG Tab PO SCH (07:34)
[2023-07-01] MEDS: Pantoprazole 40 MG Tab.CR PO SCH (07:34)
[2023-07-01] MEDS: Insulin Lispro 100 Unit/ML 3 ML KwikPen SUBCUT SCH ×2 (09:08→12:24)
[2023-07-01] MEDS: Citalopram 20 MG Tab PO SCH (09:10)
[2023-07-01] MEDS: Apixaban 5 MG Tab PO SCH (09:10)
[2023-07-01] MEDS: atorvaSTATin 20 MG Tab PO SCH (09:11)
[2023-07-01] MEDS: Mirabegron 25 MG Tab Extended Release PO SCH (09:11)
[2023-07-01] MEDS: Gabapentin 300 MG Cap PO SCH (09:11)
[2023-07-01] MEDS: Diltiazem 120 MG Cap.CD PO SCH (09:11)
[2023-07-01] MEDS: Metoprolol Succinate 50 MG Tab.ER PO SCH (09:12)
[2023-07-01] MEDS: Liraglutide (rDNA Origin) 0.6 MG/0.1 ML 3 ML Pen SUBCUT SCH (09:13)
== END 2023-07-01 16:00 | disposition home or self-care (01) | DRG 291 ==
LOC: JP.MS 10:47
PROVIDERS: ADMIT Internal Medicine; ATTEND Internal Medicine
DX: I13.0 Hypertensive heart and chronic kidney disease with heart failure and stage 1 through stage 4 chronic kidney disease, or unspecified chronic kidney disease (principal); I50.33 Acute on chronic diastolic (congestive) heart failure; E11.42 Type 2 diabetes mellitus with diabetic polyneuropathy; E11.22 Type 2 diabetes mellitus with diabetic chronic kidney disease; N18.31 Chronic kidney disease, stage 3a; K59.00 Constipation, unspecified; Z66 Do not resuscitate; E78.00 Pure hypercholesterolemia, unspecified; K21.9 Gastro-esophageal reflux disease without esophagitis; I25.10 Atherosclerotic heart disease of native coronary artery without angina pectoris; F32.A Depression, unspecified; G89.29 Other chronic pain; M54.9 Dorsalgia, unspecified; M19.90 Unspecified osteoarthritis, unspecified site; I48.0 Paroxysmal atrial fibrillation; Z96.659 Presence of unspecified artificial knee joint; Z79.4 Long term (current) use of insulin; Z79.82 Long term (current) use of aspirin; Z79.84 Long term (current) use of oral hypoglycemic drugs; Z79.01 Long term (current) use of anticoagulants; Z98.890 Other specified postprocedural states; I25.2 Old myocardial infarction; Z98.49 Cataract extraction status, unspecified eye; Z90.49 Acquired absence of other specified parts of digestive tract; Z95.5 Presence of coronary angioplasty implant and graft; Z95.2 Presence of prosthetic heart valve; Z79.899 Other long term (current) drug therapy; Z86.718 Personal history of other venous thrombosis and embolism
CPT/HCPCS: 36415; 71046; 71046-26; 80048; 82947; 83735; 84484; 85027; 86140; 93005; 93306; A9270-GY; J1815; J1815-GY; J1940; J3490; U0002

== ENCOUNTER 2023-07-26 11:35 | Emergency (ER) | payer MEDICARE, OTHER ==
[2023-07-26 13:32] LABS: BASOPHILS ABSOLUTE AUTO 0.03 K/uL (0.00-0.10); BASOPHILS PERCENT AUTO 0.4 % (0.1-1.3); EOSINOPHILS ABSOLUTE AUTO 0.12 K/uL (0.00-0.40); EOSINOPHILS PERCENT AUTO 1.7 % (0.0-5.4); HEMATOCRIT 27.2 % (38.4-49.7); HEMOGLOBIN 8.4 g/dL (12.9-16.9); IMMATURE GRAN ABSOLUTE AUTO 0.03 K/uL (0.00-0.23); IMMATURE GRAN PERCENT AUTO 0.4 % (0.0-0.7); LYMPHOCYTES ABSOLUTE AUTO 1.65 K/uL (0.8-3.3); LYMPHOCYTES PERCENT AUTO 23.2 % (11.4-47.7); MEAN CORPUSCULAR HEMOGLOBIN 24.9 pg (31.6-35.5); MEAN CORPUSCULAR HGB CONC 30.9 g/dL (31.6-35.5); MEAN CORPUSCULAR VOLUME 80.5 fL (81.4-99.0); MONOCYTES PERCENT AUTO 8.4 % (3.3-12.6); NEUTROPHILS ABSOLUTE AUTO 4.68 K/uL (1.0-7.6); NEUTROPHILS PERCENT AUTO 65.9 % (40.0-78.1); PLATELET COUNT,PLT 276 K/uL (130-375); RED BLOOD CELL COUNT 3.38 M/uL (4.14-5.76); WHITE BLOOD CELL COUNT,WBC 7.1 K/uL (3.2-11.0)
[2023-07-26 13:49] LABS: ALANINE AMINOTRANSFERASE,ALT 21 U/L (12-78); ALBUMIN 3.4 g/dL (3.4-5.0); ALKALINE PHOSPHATASE 79 U/L (46-116); ASPARTATE AMNIOTRANSFERASE,AST 16 U/L (15-37); BILIRUBIN TOTAL 0.3 mg/dL (0.2-1.0); BLOOD UREA NITROGEN,BUN 25 mg/dL (7-18); C-REACTIVE PROTEIN 0.22 mg/dL (0.0-0.3); CALCIUM 8.7 mg/dL (8.5-10.1); CARBON DIOXIDE,CO2 30 mmol/L (21-32); CHLORIDE,CL 97 mmol/L (100-108); CREATININE 1.4 mg/dL (0.8-1.3); EST CRCL DRUG DOSING (CG) 37.34 mL/min; ESTIMATED GFR 50 mL/min (>60); GLUCOSE RANDOM 67 mg/dL (74-106); POTASSIUM,K 4.1 mmol/L (3.6-5.2); PROTEIN TOTAL,TP 6.9 g/dL (6.4-8.2); SODIUM,NA 137 mmol/L (140-148)
[2023-07-26 13:50] LABS: ANION GAP 14.1 mmol/L (5.0-14.0)
[2023-07-26 13:58] LABS: APPEARANCE,URINE CLEAR (CLEAR); BILIRUBIN,URINE NEGATIVE (NEGATIVE); COLOR,URINE YELLOW (YELLOW); GLUCOSE,URINE NEGATIVE (NEGATIVE); KETONES,URINE NEGATIVE (NEGATIVE); LEUKOCYTE ESTERASE,URINE NEGATIVE (NEGATIVE); NITRITE,URINE NEGATIVE (NEGATIVE); OCCULT BLOOD,URINE NEGATIVE (NEGATIVE); PH,URINE 6.5 (5.0-8.0); PROTEIN,URINE NEGATIVE (NEGATIVE); UROBILINOGEN,URINE 0.2 EU/dL (0.2-1.0)
[2023-07-26 14:07] LABS: AMORPHOUS SEDIMENT,URINE NOT SEEN; BACTERIA,URINE RARE; EPITHELIAL CELLS,URINE NOT SEEN; MUCUS,URINE NOT SEEN; RBC,URINE 0-5 (0-5); WBC,URINE 0-5 (0-5)
[2023-07-26] MEDS ORDERED: Tamsulosin 0.4 MG Cap.ER PO ONE (14:34)
[2023-07-26] MEDS ORDERED: Pantoprazole 40 MG Tab.CR PO SCH (16:30)
[2023-07-26] MEDS ORDERED: Tamsulosin 0.4 MG Cap.ER ONE (17:09)
[2023-07-26 19:19] LABS: HEMATOCRIT 30.2 % (38.4-49.7); HEMOGLOBIN 9.3 g/dL (12.9-16.9)
== END 2023-07-26 20:15 | disposition home or self-care (01) ==
LOC: JP.ED 11:35
DX: N40.1 Benign prostatic hyperplasia with lower urinary tract symptoms (principal); R33.9 Retention of urine, unspecified; D50.0 Iron deficiency anemia secondary to blood loss (chronic); E11.22 Type 2 diabetes mellitus with diabetic chronic kidney disease; I13.0 Hypertensive heart and chronic kidney disease with heart failure and stage 1 through stage 4 chronic kidney disease, or unspecified chronic kidney disease; I50.33 Acute on chronic diastolic (congestive) heart failure; N18.31 Chronic kidney disease, stage 3a; E78.00 Pure hypercholesterolemia, unspecified; E11.40 Type 2 diabetes mellitus with diabetic neuropathy, unspecified; K21.9 Gastro-esophageal reflux disease without esophagitis; I25.2 Old myocardial infarction; I25.10 Atherosclerotic heart disease of native coronary artery without angina pectoris; Z79.82 Long term (current) use of aspirin; I48.0 Paroxysmal atrial fibrillation; Z85.46 Personal history of malignant neoplasm of prostate; Z95.2 Presence of prosthetic heart valve; Z79.84 Long term (current) use of oral hypoglycemic drugs; Z79.899 Other long term (current) drug therapy; Z79.4 Long term (current) use of insulin; Z79.01 Long term (current) use of anticoagulants
CPT/HCPCS: 36415; 36430; 80053; 81001; 84484; 85014; 85018; 85025; 86140; 86850; 86900; 86901; 86920; 86922; 99284; A9270; C1758; P9016

== ENCOUNTER 2023-08-08 07:27 | Day surgery (SDC) | payer MEDICARE, OTHER ==
[~2023-08-08 07:27] MED LIST changes: -fentaNYL 100 MCG/2 ML SDV ONE; +fentaNYL 50 MCG/ML SDV ONE
[2023-08-08] MEDS ORDERED: Sodium Chloride 0.9% 1,000 ML IV SCH (08:00)
== END 2023-08-08 11:36 | disposition home or self-care (01) ==
LOC: JP.SDS 07:27
PROVIDERS: ATTEND Surgery
DX: D50.9 Iron deficiency anemia, unspecified (principal); D12.2 Benign neoplasm of ascending colon; K22.89 Other specified disease of esophagus; I25.10 Atherosclerotic heart disease of native coronary artery without angina pectoris; K21.9 Gastro-esophageal reflux disease without esophagitis; I25.2 Old myocardial infarction; E11.51 Type 2 diabetes mellitus with diabetic peripheral angiopathy without gangrene; E11.22 Type 2 diabetes mellitus with diabetic chronic kidney disease; I13.0 Hypertensive heart and chronic kidney disease with heart failure and stage 1 through stage 4 chronic kidney disease, or unspecified chronic kidney disease; N18.9 Chronic kidney disease, unspecified; I50.9 Heart failure, unspecified; I47.1 Supraventricular tachycardia; E78.00 Pure hypercholesterolemia, unspecified
CPT/HCPCS: 43239; 45385; 88305; J2704; J3010; J7030

== ENCOUNTER 2023-09-11 11:44 | Emergency (ER) | payer MEDICARE, OTHER ==
[2023-09-11 17:48] LABS: BASOPHILS ABSOLUTE AUTO 0.05 K/uL (0.00-0.10); BASOPHILS PERCENT AUTO 0.6 % (0.1-1.3); EOSINOPHILS ABSOLUTE AUTO 0.18 K/uL (0.00-0.40); EOSINOPHILS PERCENT AUTO 2.3 % (0.0-5.4); HEMATOCRIT 36.8 % (38.4-49.7); HEMOGLOBIN 11.5 g/dL (12.9-16.9); IMMATURE GRAN PERCENT AUTO 0.3 % (0.0-0.7); LYMPHOCYTES ABSOLUTE AUTO 1.78 K/uL (0.8-3.3); LYMPHOCYTES PERCENT AUTO 22.4 % (11.4-47.7); MEAN CORPUSCULAR HEMOGLOBIN 26.6 pg (31.6-35.5); MEAN CORPUSCULAR HGB CONC 31.3 g/dL (31.6-35.5); MEAN CORPUSCULAR VOLUME 85.2 fL (81.4-99.0); MONOCYTES ABSOLUTE AUTO 0.74 K/uL (0.20-0.90); MONOCYTES PERCENT AUTO 9.3 % (3.3-12.6); NEUTROPHILS ABSOLUTE AUTO 5.18 K/uL (1.0-7.6); NEUTROPHILS PERCENT AUTO 65.1 % (40.0-78.1); PLATELET COUNT,PLT 225 K/uL (130-375); RED BLOOD CELL COUNT 4.32 M/uL (4.14-5.76)
[2023-09-11 17:49] LABS: IMMATURE GRAN ABSOLUTE AUTO 0.02 K/uL (0.00-0.23)
[2023-09-11 17:50] LABS: APPEARANCE,URINE CLEAR (CLEAR); BILIRUBIN,URINE NEGATIVE (NEGATIVE); COLOR,URINE YELLOW (YELLOW); GLUCOSE,URINE NEGATIVE (NEGATIVE); KETONES,URINE NEGATIVE (NEGATIVE); LEUKOCYTE ESTERASE,URINE NEGATIVE (NEGATIVE); NITRITE,URINE NEGATIVE (NEGATIVE); OCCULT BLOOD,URINE NEGATIVE (NEGATIVE); PROTEIN,URINE NEGATIVE (NEGATIVE); UROBILINOGEN,URINE 0.2 EU/dL (0.2-1.0)
[2023-09-11 17:56] LABS: AMORPHOUS SEDIMENT,URINE NOT SEEN; BACTERIA,URINE FEW; EPITHELIAL CELLS,URINE NOT SEEN; MUCUS,URINE NOT SEEN; RBC,URINE 0-5 (0-5)
== END 2023-09-11 18:10 | disposition home or self-care (01) ==
LOC: JP.ED 11:44
DX: R33.9 Retention of urine, unspecified (principal); E11.22 Type 2 diabetes mellitus with diabetic chronic kidney disease; I48.91 Unspecified atrial fibrillation; N18.30 Chronic kidney disease, stage 3 unspecified; I50.30 Unspecified diastolic (congestive) heart failure; I50.32 Chronic diastolic (congestive) heart failure; K21.9 Gastro-esophageal reflux disease without esophagitis; E78.00 Pure hypercholesterolemia, unspecified; I25.2 Old myocardial infarction; Z79.84 Long term (current) use of oral hypoglycemic drugs
CPT/HCPCS: 36415; 51702; 81001; 85025; 99283

== ENCOUNTER 2023-12-22 14:36 | Emergency (ER) | payer MEDICARE, OTHER ==
[2023-12-22] MEDS ORDERED: Albuterol/Ipratropium 3.0-0.5 MG/3 ML Neb Soln NEB ONE (15:28)
[2023-12-22 15:48] LABS: BASOPHILS ABSOLUTE AUTO 0.05 K/uL (0.00-0.10); BASOPHILS PERCENT AUTO 0.6 % (0.1-1.3); EOSINOPHILS ABSOLUTE AUTO 0.14 K/uL (0.00-0.40); EOSINOPHILS PERCENT AUTO 1.7 % (0.0-5.4); HEMATOCRIT 38.1 % (38.4-49.7); HEMOGLOBIN 12.2 g/dL (12.9-16.9); IMMATURE GRAN PERCENT AUTO 0.2 % (0.0-0.7); LYMPHOCYTES ABSOLUTE AUTO 1.89 K/uL (0.8-3.3); LYMPHOCYTES PERCENT AUTO 23.4 % (11.4-47.7); MEAN CORPUSCULAR HEMOGLOBIN 28.6 pg (31.6-35.5); MEAN CORPUSCULAR VOLUME 89.2 fL (81.4-99.0); MONOCYTES ABSOLUTE AUTO 0.67 K/uL (0.20-0.90); MONOCYTES PERCENT AUTO 8.3 % (3.3-12.6); NEUTROPHILS ABSOLUTE AUTO 5.31 K/uL (1.0-7.6); NEUTROPHILS PERCENT AUTO 65.8 % (40.0-78.1); PLATELET COUNT,PLT 234 K/uL (130-375); RED BLOOD CELL COUNT 4.27 M/uL (4.14-5.76); WHITE BLOOD CELL COUNT,WBC 8.1 K/uL (3.2-11.0)
[2023-12-22 15:49] LABS: BASE EXCESS VENOUS 5.3 mm/L; BICARBONATE,VENOUS 31.6 mmol/L; CARBOXYHEMOGLOBIN 2.2 % (0.0-1.6); METHEMOGLOBIN 0.6 %; O2 SATURATION VENOUS 51.3; OXYHEMOGLOBIN 49.9 %; PCO2 VENOUS 56.7 mm/Hg; PH,VENOUS 7.365 (7.350-7.450); TOTAL HEMOGLOBIN 12.7 g/dL (13.5-18.0)
[2023-12-22 15:50] LABS: IMMATURE GRAN ABSOLUTE AUTO 0.02 K/uL (0.00-0.23); PO2 VENOUS 31.5 mm/Hg
[2023-12-22 15:54] LABS: APPEARANCE,URINE CLEAR (CLEAR); BILIRUBIN,URINE NEGATIVE (NEGATIVE); COLOR,URINE YELLOW (YELLOW); GLUCOSE,URINE NEGATIVE (NEGATIVE); KETONES,URINE NEGATIVE (NEGATIVE); LEUKOCYTE ESTERASE,URINE NEGATIVE (NEGATIVE); NITRITE,URINE NEGATIVE (NEGATIVE); OCCULT BLOOD,URINE NEGATIVE (NEGATIVE); PH,URINE 6.5 (5.0-8.0); PROTEIN,URINE NEGATIVE (NEGATIVE); UROBILINOGEN,URINE 0.2 EU/dL (0.2-1.0)
[2023-12-22 16:04] LABS: INR 1.1; PROTHROMBIN TIME 11.2 sec (9.2-10.6)
[2023-12-22 16:06] LABS: AMORPHOUS SEDIMENT,URINE NOT SEEN; BACTERIA,URINE NOT SEEN; EPITHELIAL CELLS,URINE RARE; MUCUS,URINE NOT SEEN; RBC,URINE 0-5 (0-5); WBC,URINE 0-5 (0-5)
[2023-12-22 16:12] LABS: CORONAVIRUS COVID-19 NAA NEGATIVE (NEGATIVE); INFLUENZA A NAA NEGATIVE (NEGATIVE); INFLUENZA B NAA NEGATIVE (NEGATIVE); RESPIRATORY SYNCYTIAL VIR NAA NEGATIVE (NEGATIVE)
[2023-12-22 16:19] LABS: A/G RATIO 0.9 (1.2-2.2); ALANINE AMINOTRANSFERASE,ALT 22 U/L (12-78); ALBUMIN 3.3 g/dL (3.4-5.0); ALKALINE PHOSPHATASE 91 U/L (46-116); ASPARTATE AMNIOTRANSFERASE,AST 17 U/L (15-37); BILIRUBIN TOTAL 0.4 mg/dL (0.2-1.0); BLOOD UREA NITROGEN,BUN 22 mg/dL (7-18); CALCIUM 8.8 mg/dL (8.5-10.1); CARBON DIOXIDE,CO2 32 mmol/L (21-32); CHLORIDE,CL 95 mmol/L (100-108); CREATININE 1.4 mg/dL (0.8-1.3); EST CRCL DRUG DOSING (CG) 38.69 mL/min; ESTIMATED GFR 50 mL/min (>60); GLUCOSE RANDOM 104 mg/dL (74-106); POTASSIUM,K 4.5 mmol/L (3.6-5.2); PRO B-TYPE NATRIUR PEPT,BNPPRO 1557 pg/mL (5-450); PROTEIN TOTAL,TP 7.1 g/dL (6.4-8.2); SODIUM,NA 137 mmol/L (140-148)
[2023-12-22 16:22] LABS: ANION GAP 14.5 mmol/L (5.0-14.0)
[2023-12-22] MEDS ORDERED: Sodium Chloride 0.9% 10 ML Syringe FLUSH ONE (17:09)
[2023-12-22] MEDS ORDERED: Sodium Chloride 0.9% 100 ML IV SCH (17:15)
[2023-12-22] MEDS ORDERED: Iopamidol 755 Mg/ML 100 ML Bottle IV SCH (17:15)
== END 2023-12-22 19:06 | disposition home or self-care (01) ==
LOC: JP.ED 14:36
DX: J45.909 Unspecified asthma, uncomplicated (principal); I50.42 Chronic combined systolic (congestive) and diastolic (congestive) heart failure; I11.0 Hypertensive heart disease with heart failure; I25.2 Old myocardial infarction; I25.10 Atherosclerotic heart disease of native coronary artery without angina pectoris; K21.9 Gastro-esophageal reflux disease without esophagitis; E11.9 Type 2 diabetes mellitus without complications; E78.00 Pure hypercholesterolemia, unspecified; Z79.82 Long term (current) use of aspirin; Z79.899 Other long term (current) drug therapy; Z79.2 Long term (current) use of antibiotics; Z79.84 Long term (current) use of oral hypoglycemic drugs
CPT/HCPCS: 0241U; 36415; 71045; 71275; 80053; 81001; 82803; 83605; 83735; 83880; 84145; 84484; 85025; 85379; 85610; 93005; 93010; 94640; 99284; 99285; J3490; Q9967; J7620

== ENCOUNTER 2023-12-31 11:25 | Emergency (ER) | payer MEDICARE, OTHER | END 2023-12-31 13:15 | disposition home or self-care (01) | LOC: JP.ED 11:25 | DX: M19.90 Unspecified osteoarthritis, unspecified site (principal); M54.50 Low back pain, unspecified; I10 Essential (primary) hypertension; E78.00 Pure hypercholesterolemia, unspecified; I25.10 Atherosclerotic heart disease of native coronary artery without angina pectoris; I25.2 Old myocardial infarction; K21.9 Gastro-esophageal reflux disease without esophagitis; E11.9 Type 2 diabetes mellitus without complications; Z79.01 Long term (current) use of anticoagulants; Z86.16 Personal history of COVID-19; Z79.4 Long term (current) use of insulin; Z79.84 Long term (current) use of oral hypoglycemic drugs; Z79.82 Long term (current) use of aspirin; Z79.899 Other long term (current) drug therapy | CPT/HCPCS: 73502-26-LT; 73502-LT; 99283 ==

== ENCOUNTER 2024-03-21 13:15 | Emergency (ER) | payer MEDICARE, OTHER ==
[2024-03-21 14:52] LABS: INR 1.2; PROTHROMBIN TIME 11.9 sec (9.2-10.6)
[2024-03-21 15:01] LABS: WHITE BLOOD CELL COUNT,WBC 9.6 K/uL (3.2-11.0)
[2024-03-21 15:02] LABS: HEMOGLOBIN 13.6 g/dL (12.9-16.9)
[2024-03-21 15:03] LABS: A/G RATIO 0.8 (1.2-2.2); ALANINE AMINOTRANSFERASE,ALT 16 U/L (12-78); ALBUMIN 3.1 g/dL (3.4-5.0); ALKALINE PHOSPHATASE 98 U/L (46-116); ANION GAP 11.2 mmol/L (5.0-14.0); ASPARTATE AMNIOTRANSFERASE,AST 15 U/L (15-37); BILIRUBIN TOTAL 0.3 mg/dL (0.2-1.0); BLOOD UREA NITROGEN,BUN 37 mg/dL (7-18); CALCIUM 9.1 mg/dL (8.5-10.1); CARBON DIOXIDE,CO2 31 mmol/L (21-32); CHLORIDE,CL 100 mmol/L (100-108); CREATININE 1.7 mg/dL (0.8-1.3); EST CRCL DRUG DOSING (CG) 30.23 mL/min; ESTIMATED GFR 40 mL/min (>60); GLUCOSE RANDOM 146 mg/dL (74-106); POTASSIUM,K 4.2 mmol/L (3.6-5.2); PRO B-TYPE NATRIUR PEPT,BNPPRO 1072 pg/mL (5-450); PROTEIN TOTAL,TP 6.9 g/dL (6.4-8.2); SODIUM,NA 138 mmol/L (140-148)
[2024-03-21 15:09] LABS: PLATELET COUNT,PLT 263 K/uL (130-375)
[2024-03-21 15:09] LABS: APPEARANCE,URINE CLEAR (CLEAR); BILIRUBIN,URINE NEGATIVE (NEGATIVE); COLOR,URINE YELLOW (YELLOW); GLUCOSE,URINE NEGATIVE (NEGATIVE); KETONES,URINE NEGATIVE (NEGATIVE); LEUKOCYTE ESTERASE,URINE TRACE (NEGATIVE); NITRITE,URINE NEGATIVE (NEGATIVE); OCCULT BLOOD,URINE NEGATIVE (NEGATIVE); PROTEIN,URINE NEGATIVE (NEGATIVE); UROBILINOGEN,URINE 0.2 EU/dL (0.2-1.0)
[2024-03-21 15:10] LABS: AMORPHOUS SEDIMENT,URINE NOT SEEN; BACTERIA,URINE FEW; EPITHELIAL CELLS,URINE RARE; MUCUS,URINE FEW; RBC,URINE NOT SEEN (0-5)
[2024-03-21 15:11] LABS: EOSINOPHILS PERCENT MAN 1 % (2-4); LYMPHOCYTES ABSOLUTE MAN 1.73 K/uL (0.8-3.3); LYMPHOCYTES PERCENT MAN 18 % (24-44); MONOCYTES ABSOLUTE MAN 0.58 K/uL (0.20-0.90); MONOCYTES PERCENT MAN 6 % (2-6); SEG NEUTROPHILS PERCENT MAN 75 % (36-66)
== END 2024-03-21 16:44 | disposition home or self-care (01) ==
LOC: JP.ED 13:15
DX: S00.03XA Contusion of scalp, initial encounter (principal); R55 Syncope and collapse; I10 Essential (primary) hypertension; I25.10 Atherosclerotic heart disease of native coronary artery without angina pectoris; I48.91 Unspecified atrial fibrillation; E11.9 Type 2 diabetes mellitus without complications; K21.9 Gastro-esophageal reflux disease without esophagitis; Z86.16 Personal history of COVID-19; Z95.5 Presence of coronary angioplasty implant and graft; Z79.4 Long term (current) use of insulin; Z79.85 Long-term (current) use of injectable non-insulin antidiabetic drugs; Z79.899 Other long term (current) drug therapy; Z79.82 Long term (current) use of aspirin; Z79.84 Long term (current) use of oral hypoglycemic drugs; Z90.49 Acquired absence of other specified parts of digestive tract; W18.12XA Fall from or off toilet with subsequent striking against object, initial encounter
CPT/HCPCS: 36415; 70450; 71045; 71045-26; 80053; 80307; 81001; 83605; 83880; 84484; 85025; 85610; 93005; 99284

== ENCOUNTER 2024-04-07 06:14 | Day surgery (SDC) | payer MEDICARE, OTHER ==
[2024-04-07] MEDS: Dextrose 5%-Lactated Ringers 1,000 ML IV SCH (06:40)
[2024-04-07] MEDS ORDERED: Propofol 200 MG/20 ML SDV ONE (07:15)
[2024-04-07] MEDS ORDERED: fentaNYL 100 MCG/2 ML SDV ONE (07:15)
== END 2024-04-07 10:15 | disposition home or self-care (01) ==
LOC: JP.SDS 06:14
PROVIDERS: ATTEND Family Medicine
DX: Z12.11 Encounter for screening for malignant neoplasm of colon (principal); D12.3 Benign neoplasm of transverse colon; D12.4 Benign neoplasm of descending colon; D12.8 Benign neoplasm of rectum; I10 Essential (primary) hypertension; E11.9 Type 2 diabetes mellitus without complications; K21.9 Gastro-esophageal reflux disease without esophagitis; Z86.010 Personal history of colon polyps
CPT/HCPCS: 00811; 45380; 88305; J2704; J3010; J7121

== ENCOUNTER 2024-06-18 14:25 | Emergency (ER) | payer MEDICARE, OTHER ==
[2024-06-18 15:29] LABS: BASOPHILS ABSOLUTE AUTO 0.03 K/uL (0.00-0.10); BASOPHILS PERCENT AUTO 0.3 % (0.1-1.3); EOSINOPHILS ABSOLUTE AUTO 0.14 K/uL (0.00-0.40); EOSINOPHILS PERCENT AUTO 1.5 % (0.0-5.4); HEMOGLOBIN 13.2 g/dL (12.9-16.9); IMMATURE GRAN ABSOLUTE AUTO 0.03 K/uL (0.00-0.23); IMMATURE GRAN PERCENT AUTO 0.3 % (0.0-0.7); LYMPHOCYTES ABSOLUTE AUTO 1.53 K/uL (0.8-3.3); LYMPHOCYTES PERCENT AUTO 16.1 % (11.4-47.7); MEAN CORPUSCULAR HGB CONC 34.7 g/dL (31.6-35.5); MEAN CORPUSCULAR VOLUME 86.4 fL (81.4-99.0); MONOCYTES ABSOLUTE AUTO 0.64 K/uL (0.20-0.90); MONOCYTES PERCENT AUTO 6.7 % (3.3-12.6); NEUTROPHILS ABSOLUTE AUTO 7.13 K/uL (1.0-7.6); NEUTROPHILS PERCENT AUTO 75.1 % (40.0-78.1); PLATELET COUNT,PLT 172 K/uL (130-375); WHITE BLOOD CELL COUNT,WBC 9.5 K/uL (3.2-11.0)
[2024-06-18] MEDS: Pantoprazole 40 MG Vial IVPUSH ONE (15:47)
[2024-06-18] MEDS: Sodium Chloride 0.9% 1,000 ML IV SCH (15:47)
[2024-06-18 15:49] LABS: A/G RATIO 0.9 (1.2-2.2); ALANINE AMINOTRANSFERASE,ALT 20 U/L (12-78); ALBUMIN 3.3 g/dL (3.4-5.0); ALKALINE PHOSPHATASE 110 U/L (46-116); ASPARTATE AMNIOTRANSFERASE,AST 15 U/L (15-37); BILIRUBIN TOTAL 0.5 mg/dL (0.2-1.0); BLOOD UREA NITROGEN,BUN 34 mg/dL (7-18); CALCIUM 8.5 mg/dL (8.5-10.1); CARBON DIOXIDE,CO2 27 mmol/L (21-32); CHLORIDE,CL 99 mmol/L (100-108); CREATININE 1.8 mg/dL (0.8-1.3); EST CRCL DRUG DOSING (CG) 28.55 mL/min; ESTIMATED GFR 37 mL/min (>60); GLUCOSE RANDOM 261 mg/dL (74-106); POTASSIUM,K 4.2 mmol/L (3.6-5.2); PROTEIN TOTAL,TP 6.9 g/dL (6.4-8.2); SODIUM,NA 136 mmol/L (140-148)
[2024-06-18 15:50] LABS: ANION GAP 14.2 mmol/L (5.0-14.0)
== END 2024-06-18 16:55 | disposition home or self-care (01) ==
LOC: JP.ED 14:25
DX: K92.1 Melena (principal); E78.00 Pure hypercholesterolemia, unspecified; I10 Essential (primary) hypertension; E11.9 Type 2 diabetes mellitus without complications; Z86.16 Personal history of COVID-19; Z90.49 Acquired absence of other specified parts of digestive tract; Z79.899 Other long term (current) drug therapy; Z79.2 Long term (current) use of antibiotics; Z79.82 Long term (current) use of aspirin
CPT/HCPCS: 36415; 80053; 82272; 85025; 96361; 96374; 99284; J2470; J7030

== ENCOUNTER 2025-05-24 19:05 | Emergency (ER) | payer MEDICARE, OTHER ==
[2025-05-24 19:31] LABS: BASOPHILS ABSOLUTE AUTO 0.06 K/uL (0.00-0.10); BASOPHILS PERCENT AUTO 0.6 % (0.1-1.3); HEMATOCRIT 40.6 % (38.4-49.7); HEMOGLOBIN 13.6 g/dL (12.9-16.9); IMMATURE GRAN ABSOLUTE AUTO 0.02 K/uL (0.00-0.23); IMMATURE GRAN PERCENT AUTO 0.2 % (0.0-0.7); LYMPHOCYTES PERCENT AUTO 23.1 % (11.4-47.7); MEAN CORPUSCULAR HGB CONC 33.5 g/dL (31.6-35.5); MEAN CORPUSCULAR VOLUME 89.6 fL (81.4-99.0); MONOCYTES ABSOLUTE AUTO 0.54 K/uL (0.20-0.90); MONOCYTES PERCENT AUTO 5.4 % (3.3-12.6); NEUTROPHILS ABSOLUTE AUTO 6.85 K/uL (1.0-7.6); NEUTROPHILS PERCENT AUTO 68.7 % (40.0-78.1); PLATELET COUNT,PLT 195 K/uL (130-375); RED BLOOD CELL COUNT 4.53 M/uL (4.14-5.76)
[2025-05-24 19:44] LABS: A/G RATIO 0.9 (1.2-2.2); ALANINE AMINOTRANSFERASE,ALT 24 U/L (12-78); ALBUMIN 3.3 g/dL (3.4-5.0); ALKALINE PHOSPHATASE 112 U/L (46-116); ASPARTATE AMNIOTRANSFERASE,AST 19 U/L (15-37); BILIRUBIN TOTAL 0.5 mg/dL (0.2-1.0); BLOOD UREA NITROGEN,BUN 24 mg/dL (7-18); CARBON DIOXIDE,CO2 29 mmol/L (21-32); CHLORIDE,CL 100 mmol/L (100-108); CREATININE 1.4 mg/dL (0.8-1.3); ESTIMATED GFR 50 mL/min (>60); GLUCOSE RANDOM 119 mg/dL (74-106); MAGNESIUM 1.9 mg/dL (1.8-2.4); POTASSIUM,K 3.9 mmol/L (3.6-5.2); SODIUM,NA 137 mmol/L (140-148); TROPONIN I HIGH SENSITIVITY 13.5 pg/mL (<=60.3)
[2025-05-24 19:51] LABS: ANION GAP 11.9 mmol/L (5.0-14.0)
== END 2025-05-24 21:15 | disposition home or self-care (01) ==
LOC: JP.ED 19:05
DX: R55 Syncope and collapse (principal); R42 Dizziness and giddiness; I48.91 Unspecified atrial fibrillation; I25.10 Atherosclerotic heart disease of native coronary artery without angina pectoris; E78.00 Pure hypercholesterolemia, unspecified; I25.2 Old myocardial infarction; I10 Essential (primary) hypertension; E11.40 Type 2 diabetes mellitus with diabetic neuropathy, unspecified; Z79.4 Long term (current) use of insulin; Z79.899 Other long term (current) drug therapy; Z86.16 Personal history of COVID-19
CPT/HCPCS: 36415; 80053; 83735; 84484; 85025; 99285